=== PATIENT | male | born 1980 | race African-American/Black ===

== ENCOUNTER 2024-05-09 02:38 | Day surgery (SDC) | payer OTHER, SELFPAY ==
[2024-04-30 15:55] VITALS: BMI 29.5
--- NOTE | 2024-04-30 16:00 | PC.NURSE ---
Report to hospital entrance [address] right of the green pavilion by [facility] [address].located off [facility], at time _0630_ on date _[id number]_. Planned Procedure Time: _0830_.? Time changes happen often and if your time is changed the preop area will call you the afternoon before. - You and your visitor will be asked to self-screen and do not enter if you have any COVID symptoms. Please call surgeon if you need to reschedule. - A mask is optional within the hospital at this time. Patients may have clear liquids (water, carbonated beverages, clear teas, apple juice) until 3 hours prior to surgery with a maximum of 20 ounces. - No food from midnight until time of surgery and no smoking, or chewing Tobacco (or any form of nicotine). No chewing gum, candy or mints. Take only the following medications with a SIP of water on the morning of surgery: ___May use Albuterol and or Acetaminophen if needed. DO NOT STOP ANY OF YOUR OTHER PRESCRIPTION MEDICATIONS PRIOR TO SURGERY EXCEPT THE FOLLOWING Medications to discontinue per physician ___Hold Ibuprofen until after surgery.____ Date to take last nutt__[id number]___ Please no make-up, nail cymro, hairspray, perfume, deodorant, or body powder the day of surgery.? No jewelry (including any body piercings) or valuables the day of surgery, leave them at home.? Please take a shower or bath the night before, or the morning of, surgery with an antibacterial soap.? Wear comfortable, loose fitting clothing.? - Jewelry must be removed prior to entering the operating room.? Rings and piercings that are not removed may be cut off. - The hospital will not accept responsibility for valuables.? - Please leave all valuables, including medications, at home the day of surgery. If you are going home after surgery, a licensed rivet driver must drive you home.? - NO public transportation without another adult if you receive anesthesia. - We recommend that an adult stay with you for 24 hours following discharge. - We also recommend that you do not drive, make important decision, drink alcoholic beverages, or take any drugs that were not prescribed by your health care provider for at least 24 hours after your discharge time. Hold all vitamins and supplements for 3 days per anesthesiologist. Follow any additional instructions given to you from your surgeon. Telephone instructions given to ___Ryanne Powers__and asked if any additional questions and then verbalized understanding. Patient advised to call surgeon office or pre surgery nurse liaison [phone] if any additional questions
--- OUTSIDE RECORDS SUMMARY | 2024-05-09 02:58 | XMS_ITS | Clinical Summary ---
Author Organization [facility] [employer] Address [address] [place] [address] Care Team Providers Care Medical Equipment Technician Name Role Phone Unavailable Primary Care Provider Unavailabl e Source Comments [facility],non-owned Affiliates and Associated Physician Practices is amultiple site organization consisting of ambulatory clinics and hospital sitesin [place], [place], [place] and [place]. This disclosure is being madepursuant to the Care Everywhere program and may not contain all information available regarding this patient. Last updated 17.[facility] [employer] Allergies No known active allergies Medications * Be aware that medications may not be up to date on this document. Alwaysverify current medications with the patient. Medication Sig Dispensed Refills Start Date End Date Status albuterol HFA (VENTOLIN HFA) 8 gram inhaler Inhale 2 (two) puffs by mouth every 6 hours as needed Active tolnaftate (Tinactin) 1 % cream Apply to affected area 2 times daily as needed Active predniSONE (DELTASONE) 5 MG tablet Take 1 (one) tablet by mouth once daily 15 tablet 08/09/2021 Active Additional Information Patient not taking.Reported on 05/11/2022 hydroxychloroquine (PLAQUENIL) 200 MG tablet Take 1 (one) tablet by mouth 2 times daily 60 tablet 3 08/09/2021 Active Additional Information Patient not taking.Reported on 05/11/2022 Active Problems Problem Noted Date Diagnosed Date Post-inflammatory hyperpigmentation 07/08/2021 Actinic skin damage 07/08/2021 Family History Medical History Relation Name Comments Cancer Mother Hypertension Sister Relation Name Status Comments Mother Sister Social History Tobacco Use Types Packs/Day Years Used Date Smoking Tobacco: Never Smokeless Tobacco: Never Alcohol Use Standard Drinks/Week Comments Never 0 (1 standard drink = 0.6 oz pur e alcohol) PHQ-2 Answer Date Recorded PHQ2 TOTAL SCORE 2 07/14/2022 Sex and Gender Information Value Date Recorded Sex Assigned at Not on file Gender Identity Not on file Sexual Orientation Not on file Last Filed Vital Signs Vital Sign Reading Time Taken Comments Blood Pressure 122/74 07/14/2022 12:24 PM CDT Pulse 53 07/14/2022 12:24 PM CDT Temperature 36.5 C (97.7 F) 07/14/2022 12:24 PM CDT Respiratory Rate - - Oxygen Saturation 99% 07/14/2022 12:24 PM CDT Inhaled Oxygen Concentration - - Weight 101.2 kg (223 lb) 02/28/2021 10:42 AM [employer] Height 180.3 cm (5' 11 ) 02/28/2021 10:42 AM [employer] Body Mass Index 31.1 02/28/2021 10:42 AM [employer] Plan of Treatment Health Maintenance Due Date Last Done Comments LIPID TESTING 1982 DTAP/TDAP/TD VACCINES (1 - Tdap) 2001 HEPATITIS B VACCINE (1 of 3 - 19+ 3-dose series) 2001 COVID-19 VACCINE ( - 2023-2 5 season) 2023 INFLUENZA VACCINE (#1) 2023 DEPRESSION SCREENING 03/26/2024 05/11/2022 ZOSTER VACCINE (1 of 2) 2032 HEPATITIS C SCREENING Completed 02/28/2021 HIV SCREENING Completed 02/28/2021 HIB VACCINE Aged Out No longer eligi ble based on patient's age to complete this topic HPV VACCINE Aged Out No longer eligi ble based on patient's age to complete this topic MENINGOCOCCAL (Group B) VACCINE Aged Out No longer eligible based on patient's age to complete this topic MENINGOCOCCAL VACCINE Aged Out No elia julio eligible based on patient's age to complete this topic PNEUMOCOCCAL VACCINE Aged Out No long er eligible based on patient's age to complete this topic Procedures Procedure Name Priority Date/Time Associated Diagnosis Comments HEPATITIS C ANTIBODY Routine 02/28/2021 12:18 PM [employer] Arthralgia, unspecified joint High risk medication use Long-term use of immunosuppressant medication Encounter for therapeutic drug level monitoring Vasculitis (HCC) HIV-1 HIV-2 ANTIBODY + HIV P24 AG PANEL Routine 02/28/2021 12:18 PM [employer] Arthralgia, unspecified joint High risk medications (not anticoagulants) long-term use Long-term use of immunosuppressant medication Encounter for therapeutic drug level monitoring Vasculitis (HCC) from Last 3 Months or Most Recently Relevant to Health Maintenance Results * HIV-1 HIV-2 ANTIBODY + HIV P24 AG PANEL (02/28/2021 12:18 PM [employer]) HIV Antigen/Antibod y 1 & 2 Non-reacti ve Non-react jim 02/28/2021 2:48 PM [employer] [facility] Comment:No Laboratory eviden ce of HIV infection. Blood BLOOD SPECIMEN / Unknown Lab Venipuncture / Unknown 02/28/2021 12:18 PM [employer] 02/28/2021 12:54 PM [employer] Irina Rodriguez MD LAB - CHEMISTRY ORDERABLES Performing Organization Address City/[facility]/ZIP Co de Phone Number [address] [address], [place] [phone] * (ABNORMAL) HEPATITIS C ANTIBODY (02/28/2021 12:18 PM [employer]) Hepatitis C Antibody Reactive( A) Non-react jim 02/28/2021 2:52 PM [employer] [facility] Comment:Hepatitis C Antibody screen is consistent with past or current infection with Hepatitis C Virus. Nucleic Acid Test ([facility]ACE) for Hepatitis C Viral RNA should be performed for initial HCV workup, and for differentiating active/chronic infection from resolved infection. Blood BLOOD SPECIMEN / Unknown Lab Venipuncture / Unknown 02/28/2021 12:18 PM [employer] 02/28/2021 12:54 PM [employer] Irina Rodriguez MD LAB - CHEMISTRY ORDERABLES [address] [address], [place] [phone] from Last 3 Months or Most Recently Relevant to Health Maintenance
--- OUTSIDE RECORDS SUMMARY | 2024-05-09 02:58 | XMS_ITS | Patient Health Summary ---
Author Organization [facility] Address [address] [place] [address] Care Team Providers Care Celebrity Manager Name Role Phone Unavailable Primary Care Provider Unavailabl e Note from [facility],non-owned Affiliates and Associated Physician Practices is amultiple site organization consisting of ambulatory clinics and hospital sitesin [place], [place], [place] and [place]. This disclosure is being madepursuant to the Care Everywhere program and may not contain all information available regarding this patient. Last updated 17.[facility] Allergies No known active allergies Medications * Be aware that medications may not be up to date on this document. Alwaysverify current medications with the patient. * albuterol HFA (VENTOLIN HFA) 8 gram inhaler Inhale 2 (two) puffs by mouth every 6 hours as needed * tolnaftate (Tinactin) 1 % cream Apply to affected area 2 times daily as needed * predniSONE (DELTASONE) 5 MG tablet(Started 08/09/2021) Take 1 (one) tablet by mouth once daily * hydroxychloroquine (PLAQUENIL) 200 MG tablet(Started 08/09/2021) Take 1 (one) tablet by mouth 2 times daily 3 refills by 08/09/2022 Active Problems Problem Noted Date Diagnosed Date Post-inflammatory hyperpigmentation 07/08/2021 Actinic skin damage 07/08/2021 Social History Tobacco Use Types Packs/Day Years [...] 101.2 kg (223 lb) 02/28/2021 10:42 AM 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 CONDITIONING 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 Height 180.3 cm (5' 11 ) 02/28/2021 10:42 AM STEAM CONDITIONING OPERATOR Body Mass Index 31.1 02/28/2021 10:42 AM STEAM CONDITIONING OPERATOR Procedures * AMAURI BLOOD SINGLE PATTERN(Performed 02/28/2021) Performed for Arthralgia, unspecified joint, High risk medication use, Long-term use of immunosuppressant medication, Encounter for therapeutic drug level monitoring, Vasculitis (HCC) * AMAURI HEP-2 IGG BY IFA(Performed 02/28/2021) Performed for Arthralgia, unspecified joint, High risk medication use, Long-term use of immunosuppressant medication, Encounter for therapeutic drug level monitoring, Vasculitis (HCC) * COMPLEMENT ACTIVITY TOTAL (CH50)(Performed 02/28/2021) Performed for Arthralgia, unspecified joint, High risk medications (not anticoagulants) long-term use, Long-term use of immunosuppressant medication, Encounter for therapeutic drug level monitoring, Vasculitis (HCC) * URINALYSIS REFLEX TO MICROSCOPIC NO CULTURE(Performed 02/28/2021) Performed for Arthralgia, unspecified joint, High risk medication use, Long-term use of immunosuppressant medication, Encounter for therapeutic drug level monitoring, Vasculitis (HCC) * HEPATITIS C ANTIBODY(Performed 02/28/2021) Performed for Arthralgia, unspecified joint, High risk medication use, Long-term use of immunosuppressant medication, Encounter for therapeutic drug level monitoring, Vasculitis (HCC) * HEPATITIS B SURFACE ANTIBODY(Performed 02/28/2021) Performed for Arthralgia, unspecified joint, High risk medication use, Long-term use of immunosuppressant medication, Encounter for therapeutic drug level monitoring, Vasculitis (HCC) * HEPATITIS B CORE ANTIBODY TOTAL(Performed 02/28/2021) Performed for Arthralgia, unspecified joint, High risk medication use, Long-term use of immunosuppressant medication, Encounter for therapeutic drug level monitoring, Vasculitis (HCC) * LDH BLOOD(Performed 02/28/2021) Performed for Arthralgia, unspecified joint, High risk medication use, Long-term use of immunosuppressant medication, Encounter for therapeutic drug level monitoring, Vasculitis (HCC) * ALDOLASE(Performed 02/28/2021) Performed for Arthralgia, unspecified joint, High risk medication use, Long-term use of immunosuppressant medication, Encounter for therapeutic drug level monitoring, Vasculitis (HCC) * CK BLOOD(Performed 02/28/2021) Performed for Arthralgia, unspecified joint, High risk medication use, Long-term use of immunosuppressant medication, Encounter for therapeutic drug level monitoring, Vasculitis (HCC) * ERYTHROCYTE SEDIMENTATION RATE(Performed 02/28/2021) Performed for Arthralgia, unspecified joint, High risk medication use, Long-term use of immunosuppressant medication, Encounter for therapeutic drug level monitoring, Vasculitis (HCC) * C-REACTIVE PROTEIN(Performed 02/28/2021) Performed for Arthralgia, unspecified joint, High risk medication use, Long-term use of immunosuppressant medication, Encounter for therapeutic drug level monitoring, Vasculitis (HCC) * COMPREHENSIVE METABOLIC PANEL(Performed 02/28/2021) Performed for Arthralgia, unspecified joint, High risk medication use, Long-term use of immunosuppressant medication, Encounter for therapeutic drug level monitoring, Vasculitis (HCC) * CBC W AUTO DIFFERENTIAL(Performed 02/28/2021) Performed for Arthralgia, unspecified joint, High risk medication use, Long-term use of immunosuppressant medication, Encounter for therapeutic drug level monitoring, Vasculitis (HCC) * HISTONE ANTIBODY(Performed 02/28/2021) Performed for Arthralgia, unspecified joint, High risk medication use, Long-term use of immunosuppressant medication, Encounter for therapeutic drug level monitoring, Vasculitis (HCC) * RIOS (SM) ANTIBODY ALISHA(Performed 02/28/2021) Performed for Arthralgia, unspecified joint, High risk medication use, Long-term use of immunosuppressant medication, Encounter for therapeutic drug level monitoring, Vasculitis (HCC) * SS-B (SJOGREN'S) ANTIBODY(Performed 02/28/2021) Performed for Arthralgia, unspecified joint, High risk medication use, Long-term use of immunosuppressant medication, Encounter for therapeutic drug level monitoring, Vasculitis (HCC) * RIOS/TECHNOLOGY CONSULTANT (ALISHA) ANTIBODY IGG(Performed 02/28/2021) Performed for Arthralgia, unspecified joint, High risk medication use, Long-term use of immunosuppressant medication, Encounter for therapeutic drug level monitoring, Vasculitis (HCC) * IGM BLOOD(Performed 02/28/2021) Performed for Arthralgia, unspecified joint, High risk medication use, Long-term use of immunosuppressant medication, Encounter for therapeutic drug level monitoring, Vasculitis (HCC) * IGG BLOOD(Performed 02/28/2021) Performed for Arthralgia, unspecified joint, High risk medication use, Long-term use of immunosuppressant medication, Encounter for therapeutic drug level monitoring, Vasculitis (HCC) * IGA BLOOD(Performed 02/28/2021) Performed for Arthralgia, unspecified joint, High risk medication use, Long-term use of immunosuppressant medication, Encounter for therapeutic drug level monitoring, Vasculitis (HCC) * DNA ANTIBODY DS CRITHIDIA TITER(Performed 02/28/2021) Performed for Arthralgia, unspecified joint, High risk medication use, Long-term use of immunosuppressant medication, Encounter for therapeutic drug level monitoring, Vasculitis ([facility]) * DNA ANTIBODY DOUBLE STRANDED(Performed 02/28/2021) Performed for Arthralgia, unspecified joint, High risk medication use, Long-term use of immunosuppressant medication, Encounter for therapeutic drug level monitoring, Vasculitis ([facility]) * CHROMATIN ANTIBODY(Performed 02/28/2021) Performed for Arthralgia, unspecified joint, High risk medication use, Long-term use of immunosuppressant medication, Encounter for therapeutic drug level monitoring, Vasculitis (HCC) * CARDIOLIPIN ANTIBODY IGG(Performed 02/28/2021) Performed for Arthralgia, unspecified joint, High risk medication use, Long-term use of immunosuppressant medication, Encounter for therapeutic drug level monitoring, Vasculitis ([facility]) * CARDIOLIPIN ANTIBODY IGA(Performed 02/28/2021) Performed for Arthralgia, unspecified joint, High risk medication use, Long-term use of immunosuppressant medication, Encounter for therapeutic drug level monitoring, Vasculitis ([facility]) * BETA-2 GLYCOPROTEIN 1 ANTIBODY IGA(Performed 02/28/2021) Performed for Arthralgia, unspecified joint, High risk medication use, Long-term use of immunosuppressant medication, Encounter for therapeutic drug level monitoring, Vasculitis ([facility]) * AMAURI BLOOD SCREEN W/REFLEX TITER(Performed 02/28/2021) Performed for Arthralgia, unspecified joint, High risk medication use, Long-term use of immunosuppressant medication, Encounter for therapeutic drug level monitoring, Vasculitis (HCC) * COMPLEMENT C4(Performed 02/28/2021) Performed for Arthralgia, unspecified joint, High risk medication use, Long-term use of immunosuppressant medication, Encounter for therapeutic drug level monitoring, Vasculitis (HCC) * COMPLEMENT C3(Performed 02/28/2021) Performed for Arthralgia, unspecified joint, High risk medication use, Long-term use of immunosuppressant medication, Encounter for therapeutic drug level monitoring, Vasculitis (HCC) * SS-A (SJOGREN'S) 52+60 ANTIBODIES(Performed 02/28/2021) Performed for Arthralgia, unspecified joint, High risk medications (not anticoagulants) long-term use, Long-term use of immunosuppressant medication, Encounter for therapeutic drug level monitoring, Vasculitis (HCC) * HIV-1 HIV-2 ANTIBODY + HIV P24 AG PANEL(Performed 02/28/2021) Performed for Arthralgia, unspecified joint, High risk medications (not anticoagulants) long-term use, Long-term use of immunosuppressant medication, Encounter for therapeutic drug level monitoring, Vasculitis (HCC) * BETA-2 GLYCOPROTEIN 1 ANTIBODY IGG/IGM PANEL(Performed 02/28/2021) Performed for Arthralgia, unspecified joint, High risk medications (not anticoagulants) long-term use, Long-term use of immunosuppressant medication, Encounter for therapeutic drug level monitoring, Vasculitis (HCC) Results * (ABNORMAL) AMAURI BLOOD SINGLE PATTERN (02/28/2021 12:18 PM STEAM CONDITIONING OPERATOR) AMAURI Pattern Speckled( A) 03/05/2021 10:00 AM STEAM CONDITIONING OPERATOR [employer] ([facility]) AMAURI Titer 1:160(A) 03/05/2021 10:00 AM STEAM CONDITIONING OPERATOR [employer] [facility]) Comment: Performed By: [employer] [address] [place] [id number] Metal Mold Dresser: Neris Crespo MD Blood BLOOD SPECIMEN / Unknown Lab Venipuncture / Unknown 02/28/2021 12:18 PM STEAM CONDITIONING OPERATOR 02/28/2021 12:54 PM STEAM CONDITIONING OPERATOR Irina Rodriguez MD LAB - CHEMISTRY ORDERABLES Performing Organization Address [facility] de Phone Number [facility] ([facility]) [address] * COMPLEMENT ACTIVITY TOTAL (CH50) (02/28/2021 12:18 PM STEAM CONDITIONING OPERATOR) [facility] Complement Activity Total CH50 57.8 38.7 - 89.9 U/mL 2021 12:48 AM STEAM CONDITIONING OPERATOR [facility]) Comment: REFERENCE INTERVAL: Complement Activity Total, (CH50) 38.6 U/mL or less ..........Low 38.7-89.9 U/mL .............Normal 90.0 U/mL or greater .......High Performed By: [employer] [address] [place] [address] Metal Mold Dresser: Neris Crespo MD Blood BLOOD SPECIMEN / Unknown Lab Venipuncture / Unknown 02/28/2021 12:18 PM STEAM CONDITIONING OPERATOR 02/28/2021 12:54 PM STEAM CONDITIONING OPERATOR Irina Rodriguez MD LAB - CHEMISTRY ORDERABLES Performing Organization Address [facility] de Phone Number [facility] ([facility]) [address] * (ABNORMAL) AMAURI HEP-2 IGG BY IFA (02/28/2021 12:18 PM STEAM CONDITIONING OPERATOR) [facility] AMAURI HEp-2 IgG Detected (H) <1:80 03/05/2021 10:00 AM STEAM CONDITIONING OPERATOR [facility] [employer] ([facility]) AMAURI Interpretive Comment See Note 03/05/2021 10:00 AM STEAM CONDITIONING OPERATOR [facility] [employer] ([facility]) Comment: Speckled Pattern Clinical associations: SLE, SSc, SjS, DM, PM, MCTD, UCTD. May also be found in healthy individuals Main autoantibodies: Anti-SSA-52 (Ro52), anti-SSA-60 (Ro60), anti-SS-B/LA, anti-Ned-1 (anti-Scl-70), Rios, anti-U1-TECHNOLOGY CONSULTANT, anti-U2-TECHNOLOGY CONSULTANT, anti-Mi-2, anti-p155/140 (TIF1g), anti-Ku, anti-RNA polymerase, anti-DFS70/LEDGF-P75 List of Abbreviations Antisynthetase syndrome (ARS), chronic active hepatitis (CAH), inflammatory myopathies (IM) [dermatomyositis (DM), polymyositis (PM), necrotizing autoimmune myopathy (NAM)], interstitial lung disease (ILD), juvenile idiopathic arthritis (SILVIA), mixed connective tissue disease (MCTD), primary biliary cholangitis (PBC), rheumatoid arthritis (RA), systemic autoimmune rheumatic diseases (SARD), Sjogren syndrome (SjS), systemic lupus erythematosus (SLE), systemic sclerosis (SSc), undifferentiated connective tissue disease (UCTD). INTERPRETIVE INFORMATION: AMAURI Interpretive Comment Presence of antinuclear antibodies (AMAURI) is a hallmark feature of systemic autoimmune rheumatic diseases (SARD). However, AMAURI lacks diagnostic specificity and is associated with a variety of diseases (cancers, autoimmune, infectious, and inflammatory conditions) and may also occur in healthy individuals in varying prevalence. The lack of diagnostic specificity requires confirmation of positive AMAURI by more specific serologic tests. AMAURI (nuclear reactivity) positive patterns reported include centromere, homogeneous, nuclear dots, nucleolar, or speckled. AMAURI (cytoplasmic reactivity) positive patterns reported include reticular/AMA, discrete/GW body-like, polar/golgi-like, cytoplasmic speckled or rods and rings. All positive patterns are reported to endpoint titers (1:2560). Reported patterns may help guide differential diagnosis, although they may not be specific for individual antibodies or diseases. Mitotic staining patterns not reported. Negative results do not necessarily rule out SARD. Performed By: [facility] [address] [place] [address] Metal Mold Dresser: Neris Crespo MD Blood BLOOD SPECIMEN / Unknown Lab Venipuncture / Unknown 02/28/2021 12:18 PM STEAM CONDITIONING OPERATOR 02/28/2021 12:54 PM STEAM CONDITIONING OPERATOR Irina Rodriguez MD LAB - SEROLOGY ORDERABLES [employer] ([facility]) [address] [place] [address], [facility] * SS-A (SJOGREN'S) 52+60 ANTIBODIES (02/28/2021 12:18 PM STEAM CONDITIONING OPERATOR) SS-A 52 Antibody 12 0 - 40 AU/mL 2021 5:05 AM STEAM CONDITIONING OPERATOR [email or web address] ([facility]) Comment: INTERPRETIVE INFORMATION: SSA-52 (Ro52) (ALISHA) Antibody, IgG 29 AU/mL or Less ............. Negative 30 - 40 AU/mL ................ Equivocal 41 AU/mL or Greater .......... Positive SSA-52 (Ro52) and/or SSA-60 (Ro60) antibodies are associated with a diagnosis of Sjogren syndrome, systemic lupus erythematosus (SLE), and systemic sclerosis. SSA-52 antibody overlaps significantly with the major SSc-related antibodies. SSA-52 (Ro52) antibody occurs frequently in patients with inflammatory myopathies, often in the presence of interstitial lung disease. SS-A 60 Antibody 8 0 - 40 AU/mL 2021 5:05 AM STEAM CONDITIONING OPERATOR [facility] [employer] ([facility]) Comment: REFERENCE INTERVAL: SSA-60 (Ro60) (ALISHA) Antibody, IgG 29 AU/mL or Less ............. Negative 30 - 40 AU/mL ................ Equivocal 41 AU/mL or Greater .......... Positive Performed By: [facility] [address] [place] [address] Metal Mold Dresser: Neris Crespo MD Blood BLOOD SPECIMEN / Unknown Lab Venipuncture / Unknown 02/28/2021 12:18 PM STEAM CONDITIONING OPERATOR 02/28/2021 12:54 PM STEAM CONDITIONING OPERATOR Irina Rodriguez MD LAB - CHEMISTRY ORDERABLES [facility] [employer] [facility]) [address] * RIOS/TECHNOLOGY CONSULTANT (ALISHA) ANTIBODY IGG (02/28/2021 12:18 PM STEAM CONDITIONING OPERATOR) Rios/TECHNOLOGY CONSULTANT (ALISHA) Antibody IgG 6 0 - 19 Units 2021 12:05 PM STEAM CONDITIONING OPERATOR [email or web address] ([facility]) Comment: INTERPRETIVE INFORMATION: Rios/TECHNOLOGY CONSULTANT (ALISHA) Antibody, IgG 19 Units or Less ............. Negative 20 to 39 Units ............... Weak Positive 40 to 80 Units ............... Moderate Positive 81 Units or greater .......... Strong Positive Rios/TECHNOLOGY CONSULTANT antibodies are frequently seen in patients with mixed connective tissue disease (MCTD) and are also associated with other systemic autoimmune rheumatic diseases (SARDs) such as systemic lupus erythematosus (SLE), systemic sclerosis, and myositis. Antibodies targeting the Rios/TECHNOLOGY CONSULTANT antigenic complex also recognize Rios antigens, therefore, the Rios antibody response must be considered when interpreting these results. Performed By: [facility] [address] [place] [address] Metal Mold Dresser: Neris Crespo MD Blood BLOOD SPECIMEN / Unknown Lab Venipuncture / Unknown 02/28/2021 12:18 PM STEAM CONDITIONING OPERATOR 02/28/2021 12:54 PM STEAM CONDITIONING OPERATOR Irina Rodriguez MD LAB - CHEMISTRY ORDERABLES [email or web address] [facility]) [address] [place] [address], [facility] * CHROMATIN ANTIBODY (02/28/2021 12:18 PM STEAM CONDITIONING OPERATOR) Pathologist [facility] Chromatin Antibody 8 0 - 19 Units 2021 2:14 PM STEAM CONDITIONING OPERATOR [facility] [employer] ([facility]) Comment: INTERPRETIVE INFORMATION: Chromatin Antibody, IgG 19 Units or less: Negative 20 - 60 Units: Moderate Positive 61 Units or greater: Strong Positive The presence of anti-chromatin antibodies may be useful in the diagnosis of systemic lupus erythematosus (SLE) or drug-induced lupus (DIL) and have been reported to be predictive of lupus nephritis, especially when antibody levels are high. Performed By: [employer] [address] [place] [address] Metal Mold Dresser: Neris Crespo MD Blood BLOOD SPECIMEN / Unknown Lab Venipuncture / Unknown 02/28/2021 12:18 PM STEAM CONDITIONING OPERATOR 02/28/2021 12:54 PM STEAM CONDITIONING OPERATOR Irina Rodriguez MD LAB - SEROLOGY ORDERABLES [facility] [employer] [facility]) [address] [place] [address], [facility] * HIV-1 HIV-2 ANTIBODY + HIV P24 AG PANEL (02/28/2021 12:18 PM STEAM CONDITIONING OPERATOR) HIV Antigen/Antibod y 1 & 2 Non-reacti ve Non-react jim 02/28/2021 2:48 PM STEAM CONDITIONING OPERATOR [facility] Comment:No Laboratory eviden ce of HIV infection. Blood BLOOD SPECIMEN / Unknown Lab Venipuncture / Unknown 02/28/2021 12:18 PM STEAM CONDITIONING OPERATOR 02/28/2021 12:54 PM STEAM CONDITIONING OPERATOR Irina Rodriguez MD LAB - CHEMISTRY ORDERABLES Performing Organization Address City/[facility]/ZIP Co de Phone Number [address] [address], [facility] [phone] * (ABNORMAL) DNA ANTIBODY DS CRITHIDIA TITER (02/28/2021 12:18 PM STEAM CONDITIONING OPERATOR) dsDNA Antibody IgG 1:40(H) <1:10 2020 5:14 AM STEAM CONDITIONING OPERATOR [facility] [employer] ([facility]) Comment: INTERPRETIVE INFORMATION: Double-Stranded DNA (dsDNA) Antibody, IgG by IFA (using Crithidia luciliae) Positivity for anti-double stranded DNA (anti-dsDNA) IgG antibody is a diagnostic criterion of systemic lupus erythematosus (SLE). The presence of the anti-dsDNA IgG antibody is identified by IFA titer (Crithidia luciliae indirect fluorescent test [MELODIE]). MELODIE is highly specific for SLE with a sensitivity of 50-60 percent. Some patients with early or inactive SLE may be positive for anti-dsDNA IgG by ZULLY but negative by MELODIE. If the MELODIE result is negative but the patient has a positive ZULLY and clinical suspicion remains, consider antinuclear antibody (AMAURI) testing by IFA. Additional information and recommendations for testing may be found at [email or web address]. Performed By: [facility] [address] [place] [address] Metal Mold Dresser: Neris Crespo MD Blood BLOOD SPECIMEN / Unknown Lab Venipuncture / Unknown 02/28/2021 12:18 PM STEAM CONDITIONING OPERATOR 02/28/2021 12:54 PM STEAM CONDITIONING OPERATOR Irina Rodriguez MD LAB - SEROLOGY ORDERABLES Performing Organization Address [facility] de Phone Number [facility] [employer] [facility]) [address] [place] [address] * CARDIOLIPIN ANTIBODY IGA (02/28/2021 12:18 PM STEAM CONDITIONING OPERATOR) Cardiolipin Antibody IgA <10 <=11 APL 2021 12:07 AM STEAM CONDITIONING OPERATOR [facility] [employer] ([facility]) Comment: INTERPRETIVE INFORMATION: Cardiolipin Antibodies, IgA <=11 APL: Negative 12-19 APL: Indeterminate 20-80 APL: Low to Moderately Positive 81 APL or above: High Positive Performed By: [employer] [address] [place] [address] Metal Mold Dresser: Neris Crespo MD Blood BLOOD SPECIMEN / Unknown Lab Venipuncture / Unknown 02/28/2021 12:18 PM STEAM CONDITIONING OPERATOR 02/28/2021 12:54 PM STEAM CONDITIONING OPERATOR Irina Rodriguez MD LAB - SEROLOGY ORDERABLES Performing Organization Address [facility] Phone Number [facility]) [address] [place] [address] * (ABNORMAL) CARDIOLIPIN ANTIBODY IGG (02/28/2021 12:18 PM STEAM CONDITIONING OPERATOR) Cardiolipin Antibody IgG 26(H) <=14 GPL 2021 5:29 PM STEAM CONDITIONING OPERATOR [email or web address] ([facility]) Comment: INTERPRETIVE INFORMATION: Anti-Cardiolipin IgG Ab <=14 GPL: Negative 15-19 GPL: Indeterminate 20-80 GPL: Low to Moderately Positive 81 GPL or above: High Positive The persistent presence of IgG and/or IgM cardiolipin (CL) antibodies in moderate or high levels (greater than 40 GPL and/or greater than 40 MPL units) is a laboratory criterion for the diagnosis of antiphospholipid syndrome (APS). Persistence is defined as moderate or high levels of IgG and/or IgM CL antibodies detected in two or more specimens drawn at least 12 weeks apart (J Throm Haemost. 2006;4:295-306). Lower positive levels of IgG and/or IgM CL antibodies (above cutoff but less than 40 GPL and/or less than 40 MPL units) may occur in patients with the clinical symptoms of APS; therefore, the actual significance of these levels is undefined. Results should not be used alone for diagnosis and must be interpreted in light of APS-specific clinical manifestations and/or other criteria phospholipid antibody tests. Performed By: [place] [address] Metal Mold Dresser: Neris Crespo MD Blood BLOOD SPECIMEN / Unknown Lab Venipuncture / Unknown 02/28/2021 12:18 PM STEAM CONDITIONING OPERATOR 02/28/2021 12:54 PM STEAM CONDITIONING OPERATOR Irina Rodriguez MD LAB - SEROLOGY ORDERABLES [facility] ([facility]) [address] [place] [address], [facility] * (ABNORMAL) URINALYSIS REFLEX TO MICROSCOPIC NO CULTURE (02/28/2021 12:18 PM STEAM CONDITIONING OPERATOR) Color UA Yellow Straw, Yellow 02/28/2021 1:06 PM [facility] Clarity UA Clear Clear 02/28/2021 1:06 PM [facility] Specific [place] UA 1.018 1.005 - 1.030 02/28/2021 1:06 PM [facility] pH UA 7.0 5.0 - 8.0 pH 02/28/2021 1:06 PM [facility] Protein UA Negative Negative 02/28/2021 1:06 PM [facility] Glucose UA Negative Negative 02/28/2021 1:06 PM [facility] Ketone UA Negative Negative 02/28/2021 1:06 PM [facility] Bilirubin UA Negative Negative 02/28/2021 1:06 PM [facility] Blood UA Negative Negative 02/28/2021 1:06 PM [facility] [facility] Nitrite UA Negative Negative 02/28/2021 1:06 PM [facility] Leukocyte Esterase Negative Negative 02/28/2021 1:06 PM [facility] Urobilinogen UA Negative Negative mg/dL 02/28/2021 1:06 PM [facility] RBC UA 0-2 None Seen, 0-2, 3-5 /HPF 02/28/2021 1:06 PM [facility] WBC UA 0-5 None Seen, 0-5 /HPF 02/28/2021 1:06 PM [facility] Squamous Epithelial Cells UA 0-2 None Seen, 0-2, 3-5 /HPF 02/28/2021 1:06 PM [facility] Renal Epithelial Cells UA 0-2(A) None Seen /HPF 02/28/2021 1:06 PM [facility] Mucus UA 1+ /LPF 02/28/2021 1:06 PM [facility] Urine URINE SPECIMEN OBTAINED BY CLEAN CATCH PROCEDURE / Unknown Collection / Unknown 02/28/2021 12:18 PM STEAM CONDITIONING OPERATOR 02/28/2021 1:06 PM STEAM CONDITIONING OPERATOR Narrative [facility] - 02/28/2021 1:06 PM STEAM CONDITIONING OPERATOR Irina Rodriguez MD LAB - URINALYSI S ORDERABLES Performing Organization Address City/State/[facility] Co de Phone Number [facility] [address] [place] [address], [facility] [phone] * RIOS (SM) ANTIBODY ALISHA (02/28/2021 12:18 PM STEAM CONDITIONING OPERATOR) Rios (ALISHA) Antibody 40 0 - 40 AU/mL 2021 5:05 AM STEAM CONDITIONING OPERATOR [employer] ([facility]) Comment: INTERPRETIVE INFORMATION: Rios (ALISHA) Antibody, IgG 29 AU/mL or Less ............. Negative 30 - 40 AU/mL ................ Equivocal 41 AU/mL or Greater .......... Positive Rios antibody is highly specific (greater than 90 percent) for systemic lupus erythematosus (SLE) but only occurs in 30-35 percent of SLE cases. The presence of antibodies to Rios has variable associations with SLE clinical manifestations. Performed By: [facility] [address] [place] [address] Metal Mold Dresser: Neris Crespo MD Blood BLOOD SPECIMEN / Unknown Lab Venipuncture / Unknown 02/28/2021 12:18 PM STEAM CONDITIONING OPERATOR 02/28/2021 12:54 PM STEAM CONDITIONING OPERATOR Irina Rodriguez MD LAB - CHEMISTRY ORDERABLES Performing Organization Address City/[facility]/ZIP Co de Phone Number [facility]) [address] [place], [place] [address] * C-REACTIVE PROTEIN (02/28/2021 12:18 PM STEAM CONDITIONING OPERATOR) Pathologist [facility] C-Reactive Protein <0.5 <=0.5 mg/dL 02/28/2021 2:29 PM STEAM CONDITIONING OPERATOR [facility] Blood BLOOD SPECIMEN / Unknown Lab Venipuncture / Unknown 02/28/2021 12:18 PM STEAM CONDITIONING OPERATOR 02/28/2021 12:54 PM STEAM CONDITIONING OPERATOR Irina Rodriguez MD LAB - CHEMISTRY ORDERABLES Performing Organization Address City/[facility] Co de Phone Number [place] [phone] [place] [phone], [facility] [phone] * (ABNORMAL) AMAURI BLOOD SCREEN W/REFLEX TITER (02/28/2021 12:18 PM STEAM CONDITIONING OPERATOR) Pathologist [facility] AMAURI IgG Detected (A) None Detected 03/04/2021 3:37 AM STEAM CONDITIONING OPERATOR [facility]) Comment: Antibodies to Anti-Nuclear Antibodies (AMAURI) detected. Additional testing to follow. INTERPRETIVE INFORMATION: Anti-Nuclear Antibodies (AMAURI), IgG by ZULLY Antinuclear Antibodies (AMAURI), IgG by ZULLY: AMAURI specimens are screened using enzyme-linked immunosorbent assay (ZULLY) methodology. All ZULLY results reported as Detected are further tested by indirect fluorescent assay (IFA) using HEp-2 substrate with an IgG-specific conjugate. The AMAURI ZULLY screen is designed to detect antibodies against dsDNA, histones, SS-A (Ro), SS-B (La), Rios, Rios/TECHNOLOGY CONSULTANT, Scl-70, Vanesa-1, centromeric proteins, other antigens extracted from the HEp-2 cell nucleus. AMAURI ZULLY assays have been reported to have lower sensitivities than AMAURI IFA for systemic autoimmune rheumatic diseases (SARD). Negative results do not necessarily rule out SARD. Performed By: [employer] [address] [place] [address] Metal Mold Dresser: Neris Crespo MD Blood BLOOD SPECIMEN / Unknown Lab Venipuncture / Unknown 02/28/2021 12:18 PM STEAM CONDITIONING OPERATOR 02/28/2021 12:54 PM STEAM CONDITIONING OPERATOR Irina Rodriguez MD LAB - CHEMISTRY ORDERABLES Performing Organization Address [facility] Co de Phone Number [facility] [employer] [facility]) [address] [place] [address] * BETA-2 GLYCOPROTEIN 1 ANTIBODY IGA (02/28/2021 12:18 PM STEAM CONDITIONING OPERATOR) [facility] Beta-2 Glycoprotein Antibody IgA <10 <=20 BRENDA 03/04/2021 3:49 AM STEAM CONDITIONING OPERATOR [email or web address] ([facility]) Comment: Performed By: [facility] [address] [place] [address] Metal Mold Dresser: Neris Crespo MD Blood BLOOD SPECIMEN / Unknown Lab Venipuncture / Unknown 02/28/2021 12:18 PM STEAM CONDITIONING OPERATOR 02/28/2021 12:54 PM STEAM CONDITIONING OPERATOR Irina Rodriguez MD LAB - SEROLOGY ORDERABLES Performing Organization Address [facility] de Phone Number [facility]) [address] [place] [address] * (ABNORMAL) HISTONE ANTIBODY (02/28/2021 12:18 PM STEAM CONDITIONING OPERATOR) Histone Antibody IgG 1.6(H) 0.0 - 0.9 Units 2021 7:38 AM STEAM CONDITIONING OPERATOR [employer] ([facility]) Comment: INTERPRETIVE INFORMATION: Histone Ab, IgG 0.9 Units or less ............ Negative 1.0 - 1.5 Units .............. Weak Positive 1.6 - 2.5 Units .............. Moderate Positive 2.6 Units or greater ......... Strong Positive Performed By: [facility] [address] [place] [address] Metal Mold Dresser: Neris Crespo MD Blood BLOOD SPECIMEN / Unknown Lab Venipuncture / Unknown 02/28/2021 12:18 PM STEAM CONDITIONING OPERATOR 02/28/2021 12:54 PM STEAM CONDITIONING OPERATOR Irina Rodriguez MD LAB - CHEMISTRY ORDERABLES [facility] [employer] [facility]) [address] [place] [address], [facility] * BETA-2 GLYCOPROTEIN 1 ANTIBODY IGG/IGM PANEL (02/28/2021 12:18 PM STEAM CONDITIONING OPERATOR) [facility] Beta-2 Glycoprotein Antibody IgG <10 <=20 SGU 2021 2:31 PM STEAM CONDITIONING OPERATOR [facility] [employer] ([facility]) Beta-2 Glycoprotein Antibody IgM <10 <=20 SMU 2021 2:31 PM STEAM CONDITIONING OPERATOR [facility] [employer] [facility]) Comment: INTERPRETIVE INFORMATION: [id number] I, IgG and IgM Antibody The persistent presence of IgG and/or IgM beta 2 glycoprotein I (B2GPI) antibodies is a laboratory criterion for the diagnosis of antiphospholipid syndrome (APS). Persistence is defined as moderate or high levels of IgG and/or IgM B2GPI antibodies detected in two or more specimens drawn at least 12 weeks apart (J Throm Haemost. 2006;4:295-306). B2GPI results greater than 20 SGU (IgG) and/or SMU (IgM) are considered positive based on the cutoff values established for this test. International reference materials and consensus units for anti-B2GPI antibodies have not been established (Clin Amie Acta. 2012;413(1-2):358-60; Arthritis Rheum. 2012;64(1):1-10.); results can be variable between different commercial immunoassays and cannot be compared. Strong clinical correlation is recommended for a diagnosis of APS. Low positive IgG and IgM B2GPI antibody levels should be interpreted in light of APS-specific clinical manifestations and/or other criteria phospholipid antibody tests. Performed By: [facility] [address] [place] [address] Metal Mold Dresser: Neris Crespo MD Blood BLOOD SPECIMEN / Unknown Lab Venipuncture / Unknown 02/28/2021 12:18 PM STEAM CONDITIONING OPERATOR 02/28/2021 12:54 PM STEAM CONDITIONING OPERATOR Irina Rodriguez MD LAB - CHEMISTRY ORDERABLES Performing Organization Address City/[facility]/ZIP Co de Phone Number [facility] [employer] [facility]) [address] [place] [address] * SS-B (SJOGREN'S) ANTIBODY (02/28/2021 12:18 PM STEAM CONDITIONING OPERATOR) SS-B Antibody 2 0 - 40 AU/mL 2021 6:12 AM STEAM CONDITIONING OPERATOR [email or web address] ([facility]) Comment: INTERPRETIVE INFORMATION: SSB (La) (ALISHA) Ab, IgG 29 AU/mL or Less ............. Negative 30 - 40 AU/mL ................ Equivocal 41 AU/mL or Greater .......... Positive SSB (La) antibody is seen in 50-60% of Sjogren syndrome cases and is specific if it is the only ALISHA antibody present. 15-25% of patients with systemic lupus erythematosus (SLE) and 5-10% of patients with progressive systemic sclerosis (PSS) also have this antibody. Performed By: [facility] [address] [place] [address] Metal Mold Dresser: Neris Crespo MD Blood BLOOD SPECIMEN / Unknown Lab Venipuncture / Unknown 02/28/2021 12:18 PM STEAM CONDITIONING OPERATOR 02/28/2021 12:54 PM STEAM CONDITIONING OPERATOR Irina Rodriguez MD LAB - CHEMISTRY ORDERABLES [facility] [employer] [facility]) [address] [place] [address] * DNA ANTIBODY DOUBLE STRANDED (02/28/2021 12:18 PM STEAM CONDITIONING OPERATOR) dsDNA Antibody 9 0 - 24 IU 2021 12:08 AM STEAM CONDITIONING OPERATOR [employer] ([facility]) Comment: INTERPRETIVE INFORMATION: Double-Stranded DNA (dsDNA) Ab IgG ZULLY 24 IU or less........Negative 25-30 IU.............Borderline Positive 30-60 IU.............Low Positive 60-200 IU............Positive 201 IU or greater....Strong Positive Positivity for anti-double stranded DNA (anti-dsDNA) IgG antibody is a diagnostic criterion of systemic lupus erythematosus (SLE). Specimens are initially screened by enzyme-linked immunosorbent assay (ZULLY). If ordered as reflex ([id number]), positive ZULLY results (>24 IU) will be reflexed to a highly specific IFA titer (Crithidia luciliae indirect fluorescent test [MELODIE]) for confirmation. Some patients with early or inactive SLE may be positive for anti-dsDNA IgG by ZULLY but negative by MELODIE. If the patient is negative by MLEODIE but positive by ZULLY and clinical suspicion remains, consider antinuclear antibody (AMAURI) testing by IFA. Additional information and recommendations for testing may be found at [email or web address]. Performed By: [facility] [address] [place] [address] Metal Mold Dresser: Neris Crespo MD Blood BLOOD SPECIMEN / Unknown Lab Venipuncture / Unknown 02/28/2021 12:18 PM STEAM CONDITIONING OPERATOR 02/28/2021 12:54 PM STEAM CONDITIONING OPERATOR Irina Rodriguez MD LAB - HEMATOLOG Y ORDERABLES [email or web address] [facility]) [address] [place] [address] * ALDOLASE (02/28/2021 12:18 PM STEAM CONDITIONING OPERATOR) [facility] Aldolase 6.9 1.5 - 8.1 U/L 03/02/2021 4:53 PM STEAM CONDITIONING OPERATOR [facility] [employer] ([facility]) Comment: REFERENCE INTERVAL: Aldolase Access complete set of age- and/or gender-specific reference intervals for this test in the [employer] Laboratory Test Directory ([employer]). Performed By: [facility] [address] [place] [address] Metal Mold Dresser: Neris Crespo MD Blood BLOOD SPECIMEN / Unknown Lab Venipuncture / Unknown 02/28/2021 12:18 PM STEAM CONDITIONING OPERATOR 02/28/2021 12:54 PM STEAM CONDITIONING OPERATOR Irina Rodriguez MD LAB - CHEMISTRY ORDERABLES Performing Organization Address [facility]/ZIP Co de Phone Number [facility] ([facility]) [address] [place], [place] [id number] [place] [address] * ERYTHROCYTE SEDIMENTATION RATE (02/28/2021 12:18 PM STEAM CONDITIONING OPERATOR) Erythrocyte Sedimentation Rate Westergren 11 0 - 15 MM/HR 02/28/2021 1:24 PM [facility] Blood BLOOD SPECIMEN / Unknown Lab Venipuncture / Unknown 02/28/2021 12:18 PM STEAM CONDITIONING OPERATOR 02/28/2021 12:55 PM STEAM CONDITIONING OPERATOR Irina Rodriguez MD LAB - HEMATOLOG Y ORDERABLES [facility] [address] [place] [address] [phone] * CBC WITH DIFFERENTIAL (02/28/2021 12:18 PM STEAM CONDITIONING OPERATOR) WBC 4.8 3.5 - 10.5 10 3/uL 02/28/2021 1:00 PM [facility] RBC 5.63 4.30 - 5.70 10 6/uL 02/28/2021 1:00 PM [facility] Hemoglobin 16.4 12.0 - 17.6 g/dL 02/28/2021 1:00 PM [facility] Hematocrit 49.7 35.2 - 51.7 % 02/28/2021 1:00 PM [facility] MCV 88.3 80.7 - 98.3 fL 02/28/2021 1:00 PM [facility] MCH 29.1 26.7 - 34.0 pg 02/28/2021 1:00 PM [facility] MCHC 33.0 30.8 - 35.9 g/dL 02/28/2021 1:00 PM [facility] Platelet Count 260 150 - 400 10 3/uL 02/28/2021 1:00 PM [facility] RDW-SD 43.1 36.0 - 50.0 fL 02/28/2021 1:00 PM [facility] RDW-CV 13.3 11.2 - 14.8 % 02/28/2021 1:00 PM [facility] MPV 10.7 9.4 - 12.9 fL 02/28/2021 1:00 PM [facility] nRBC Absolute 0.00 0 10 3/uL 02/28/2021 1:00 PM [facility] nRBC Auto 0.0 0 /100 WBC 02/28/2021 1:00 PM [facility] Neutrophils % 44.7 35.0 - 70.0 % 02/28/2021 1:00 PM [facility] Lymphocytes % 42.1 20.0 - 43.0 % 02/28/2021 1:00 PM [facility] Monocytes % 9.5 5.0 - 13.0 % 02/28/2021 1:00 PM [facility] Eosinophils % 2.9 0.0 - 6.0 % 02/28/2021 1:00 PM [facility] Basophil % 0.6 0.0 - 2.0 % 02/28/2021 1:00 PM [facility] Neutrophils Absolute 2.2 1.6 - 7.0 10 3/uL 02/28/2021 1:00 PM [facility] Lymphocyte Absolute 2.0 1.1 - 3.9 10 3/uL 02/28/2021 1:00 PM [facility] Monocytes Absolute 0.46 0.26 - 1.07 10 3/uL 02/28/2021 1:00 PM [facility] Eosinophils Absolute 0.14 0.00 - 0.47 10 3/uL 02/28/2021 1:00 PM [facility] Basophils Absolute 0.03 0.00 - 0.08 10 3/uL 02/28/2021 1:00 PM [facility] Immature Granulocytes % 0.2 0.0 - 1.0 % 02/28/2021 1:00 PM [facility] Immature Granulocytes Absolute 0.01 02/28/2021 1:00 PM [facility] Blood BLOOD SPECIMEN / Unknown Lab Venipuncture / Unknown 02/28/2021 12:18 PM STEAM CONDITIONING OPERATOR 02/28/2021 12:55 PM STEAM CONDITIONING OPERATOR Irina Rodriguez MD LAB - HEMATOLOG Y ORDERABLES [address] [address], [facility] [phone] * COMPLEMENT C4 (02/28/2021 12:18 PM STEAM CONDITIONING OPERATOR) Complement C4 24 15 - 57 mg/dL 02/28/2021 1:29 PM [facility] Blood BLOOD SPECIMEN / Unknown Lab Venipuncture / Unknown 02/28/2021 12:18 PM STEAM CONDITIONING OPERATOR 02/28/2021 1:04 PM STEAM CONDITIONING OPERATOR Irina Rodriguez MD LAB - SEROLOGY ORDERABLES [address] [address], [facility] [phone] * (ABNORMAL) COMPREHENSIVE METABOLIC PANEL (02/28/2021 12:18 PM STEAM CONDITIONING OPERATOR) BUN 8 7 - 26 mg/dL 02/28/2021 1:29 PM [facility] Creatinine 1.04 0.71 - 1.16 mg/dL 02/28/2021 1:29 PM [facility] Sodium 142 136 - 145 mmol/L 02/28/2021 1:29 PM [facility] Potassium 4.1 3.5 - 4.5 mmol/L 02/28/2021 1:29 PM [facility] Chloride 107 98 - 107 mmol/L 02/28/2021 1:29 PM [facility] CO2 25 22 - 29 mmol/L 02/28/2021 1:29 PM [facility] Glucose 82 70 - 115 mg/dL 02/28/2021 1:29 PM [facility] Calcium 9.7 8.4 - 10.2 mg/dL 02/28/2021 1:29 PM [facility] Protein Total 8.4(H) 6.0 - 8.3 g/dL 02/28/2021 1:29 PM [facility] Albumin 4.3 3.4 - 5.0 g/dL 02/28/2021 1:29 PM [facility] Bilirubin Total 0.6 0.2 - 1.2 mg/dL 02/28/2021 1:29 PM [facility] Alkaline Phosphatase 74 40 - 150 U/L 02/28/2021 1:29 PM [facility] ALT 44 5 - 55 U/L 02/28/2021 1:29 PM [facility] AST 25 5 - 34 U/L 02/28/2021 1:29 PM [facility] Anion Gap 14 8 - 18 02/28/2021 1:29 PM [facility] BUN/Creatinine Ratio 8 7 - 23 02/28/2021 1:29 PM [facility] Osmolality Calculated 291 270 - 300 mOsm/kg 02/28/2021 1:29 PM [facility] Albumin/Globulin Ratio 1.0(L) 1.1 - 2.3 02/28/2021 1:29 PM [facility] eGFR by CKD-EPI >90 >=90 mL/min/1.7 3 m2 02/28/2021 1:29 PM [facility] Blood BLOOD SPECIMEN / Unknown Lab Venipuncture / Unknown 02/28/2021 12:18 PM STEAM CONDITIONING OPERATOR 02/28/2021 1:04 PM [facility] Irina Rodriguez MD LAB - CHEMISTRY ORDERABLES [facility] [address] [place] [address], [facility] [phone] * LDH BLOOD (02/28/2021 12:18 PM [facility]) LDH Total 221 125 - 243 Units/L 02/28/2021 1:29 PM [facility] Blood BLOOD SPECIMEN / Unknown Lab Venipuncture / Unknown 02/28/2021 12:18 PM STEAM CONDITIONING OPERATOR 02/28/2021 1:04 PM STEAM CONDITIONING OPERATOR Irina Rodriguez MD LAB - CHEMISTRY ORDERABLES Performing Organization Address City/[facility]/ZIP Co de Phone Number [address] [address], [place] [phone] * HEPATITIS B SURFACE ANTIBODY (02/28/2021 12:18 PM STEAM CONDITIONING OPERATOR) Hepatitis B Virus Surface Antibody Non-react jim Non-react jim 02/28/2021 2:48 PM STEAM CONDITIONING OPERATOR [facility] Comment: < 8 mIU/mL Hepatitis B surface Antibody (HBsAb). Nonreactive for HBsAb - individual is considered not immune to Hepatitis B Virus infection. Hepatitis B Surface Antibody Quantitative 0.2 <8.0 mIU/mL 02/28/2021 2:48 PM STEAM CONDITIONING OPERATOR [facility] Comment: Hepatitis B Surface Antibody Numeric Result Interpretation: Nonreactive: <8.0 mIU/mL Indeterminate: 8.0 - 12.0 mIU/mL Reactive: >12.0 mIU/mL Blood BLOOD SPECIMEN / Unknown Lab Venipuncture / Unknown 02/28/2021 12:18 PM STEAM CONDITIONING OPERATOR 02/28/2021 12:54 PM STEAM CONDITIONING OPERATOR Irina Rodriguez MD LAB - CHEMISTRY ORDERABLES Performing Organization Address [facility] Co de Phone Number [address] [address], [place] [phone] * HEPATITIS B CORE ANTIBODY (02/28/2021 12:18 PM STEAM CONDITIONING OPERATOR) HBc Antibody Total Non-reacti ve Non-reacti ve 02/28/2021 2:48 PM STEAM CONDITIONING OPERATOR [facility] Blood BLOOD SPECIMEN / Unknown Lab Venipuncture / Unknown 02/28/2021 12:18 PM STEAM CONDITIONING OPERATOR 02/28/2021 12:54 PM STEAM CONDITIONING OPERATOR Irina Rodriguez MD LAB - CHEMISTRY ORDERABLES [address] [place] [address], [place] [phone] * (ABNORMAL) CK BLOOD (02/28/2021 12:18 PM STEAM CONDITIONING OPERATOR) CK Total 232(H) 30 - 200 U/L 02/28/2021 1:29 PM STEAM CONDITIONING OPERATOR [facility] Blood BLOOD SPECIMEN / Unknown Lab Venipuncture / Unknown 02/28/2021 12:18 PM STEAM CONDITIONING OPERATOR 02/28/2021 1:04 PM STEAM CONDITIONING OPERATOR Irina Rodriguez MD LAB - CHEMISTRY ORDERABLES [address] [address], [place] [phone] * IGM BLOOD (02/28/2021 12:18 PM STEAM CONDITIONING OPERATOR) Pathologist [facility] IgM 98 37 - 286 mg/dL 02/28/2021 2:29 PM STEAM CONDITIONING OPERATOR [facility] Blood BLOOD SPECIMEN / Unknown Lab Venipuncture / Unknown 02/28/2021 12:18 PM STEAM CONDITIONING OPERATOR 02/28/2021 12:54 PM STEAM CONDITIONING OPERATOR Irina Rodriguez MD LAB - CHEMISTRY ORDERABLES [address] [address], [place] [phone] * (ABNORMAL) IGG BLOOD (02/28/2021 12:18 PM STEAM CONDITIONING OPERATOR) IgG 1,633(H) 767-1,590 mg/dL 02/28/2021 2:29 PM STEAM CONDITIONING OPERATOR [facility] Blood BLOOD SPECIMEN / Unknown Lab Venipuncture / Unknown 02/28/2021 12:18 PM STEAM CONDITIONING OPERATOR 02/28/2021 12:54 PM STEAM CONDITIONING OPERATOR Irina Rodriguez MD LAB - CHEMISTRY ORDERABLES [address] [address], [place] [phone] * IGA BLOOD (02/28/2021 12:18 PM STEAM CONDITIONING OPERATOR) IgA 191 61 - 356 mg/dL 02/28/2021 2:29 PM STEAM CONDITIONING OPERATOR [facility] Blood BLOOD SPECIMEN / Unknown Lab Venipuncture / Unknown 02/28/2021 12:18 PM STEAM CONDITIONING OPERATOR 02/28/2021 12:54 PM STEAM CONDITIONING OPERATOR Irina Rodriguez MD LAB - CHEMISTRY ORDERABLES [address] [address], [facility] [phone] * (ABNORMAL) HEPATITIS C ANTIBODY (02/28/2021 12:18 PM STEAM CONDITIONING OPERATOR) Hepatitis C Antibody Reactive( A) Non-react jim 02/28/2021 2:52 PM STEAM CONDITIONING OPERATOR [facility] Comment:Hepatitis C Antibody screen is consistent with past or current infection with Hepatitis C Virus. Nucleic Acid Test (GRACE) for Hepatitis C Viral RNA should be performed for initial HCV workup, and for differentiating active/chronic infection from resolved infection. Blood BLOOD SPECIMEN / Unknown Lab Venipuncture / Unknown 02/28/2021 12:18 PM STEAM CONDITIONING OPERATOR 02/28/2021 12:54 PM STEAM CONDITIONING OPERATOR Irina Rodriguez MD LAB - CHEMISTRY ORDERABLES Performing Organization Address City/[facility]/ZIP Co de Phone Number [address] [address], [facility] [phone] * COMPLEMENT C3 (02/28/2021 12:18 PM STEAM CONDITIONING OPERATOR) Complement C3 137 82 - 193 mg/dL 02/28/2021 1:29 PM STEAM CONDITIONING OPERATOR [facility] Blood BLOOD SPECIMEN / Unknown Lab Venipuncture / Unknown 02/28/2021 12:18 PM STEAM CONDITIONING OPERATOR 02/28/2021 1:04 PM STEAM CONDITIONING OPERATOR Irina Rodriguez MD LAB - CHEMISTRY ORDERABLES [facility] [address] [place] [address], [facility] [phone]
--- OUTSIDE RECORDS SUMMARY | 2024-05-09 02:58 | XMS_ITS | Clinical Summary ---
Author Organization [facility] Address [address] [place] [address] Care Team Providers Care Director Trading Name Role Phone Laura Alves MD, Replaced By [facility] Primary Care Provider Allergies No known active allergies Medications No known medications Active Problems No known active problems Encounters Date Type Department Care Team Description 04/07/2024 2:15 PM INSTALLATION TECH - 04/07/2024 11:59 PM INSTALLATION TECH Hospital Encounter [facility] [address] [place] [address] Jen Mcneil MD Discharge Disposition: Home or Self Care (Routine Discharge) 04/07/2024 Orders Only [facility] [address] [place] [address] Jen Mcneil MD 03/21/2024 7:30 AM INSTALLATION TECH - 03/21/2024 11:59 PM INSTALLATION TECH Hospital Encounter [facility] CT [address] [place] [address] Marcia Newman PA Discharge Disposition: Home or Self Care (Routine Discharge) 03/21/2024 Travel 03/18/2024 7:27 AM INSTALLATION TECH - 03/18/2024 11:59 PM INSTALLATION TECH Hospital Encounter [facility] CT [address] [place] [address] Marcia Newman PA Discharge Disposition: Home or Self Care (Routine Discharge) 03/18/2024 Travel from Last 3 Months Social History Tobacco Use Types Packs/Day Years Used Date Smoking Tobacco: Never Assessed Sex and Gender Information Value Date Recorded Sex Assigned at Not on file Legal Sex Male 4:42 PM CDT Gender Identity Not on file Sexual Orientation Not on file Last Filed Vital Signs Vital Sign Reading Time Taken Comments Blood Pressure 142/80 06/27/2022 1:55 PM CDT Pulse 62 06/27/2022 1:55 PM CDT Temperature - - Respiratory Rate 16 06/27/2022 1:55 PM CDT Oxygen Saturation 100% 06/27/2022 1:55 PM CDT Inhaled Oxygen Concentration - - Weight 88.5 kg (195 lb) 06/27/2022 1:55 PM CDT Height 180.3 cm (5' 11 ) 06/27/2022 1:55 PM CDT Body Mass Index 27.2 06/27/2022 1:55 PM CDT Plan of Treatment Health Maintenance Due Date Last Done Comments Annual Physical 1985 PHQ-2 (Physician [place]) 1994 DTaP, Tdap and Td Vaccines ( 1 - Tdap) 2001 Hepatitis B Vaccines (1 of 3 - 19+ 3-dose series) 2001 COVID-19 Vaccine (2023-2 5 season) 2023 Influenza Adult (#1) 2023 PHQ-2 (Physician [place]) 03/26/2024 Hepatitis C Completed 02/28/2021 HPV Vaccines Aged Out No longer eligi ble based on patient's age to complete this topic Meningococcal B Vaccine Aged Out No l onger eligible based on patient's age to complete this topic Meningococcal Vaccine Aged Out No elia julio eligible based on patient's age to complete this topic Pneumococcal Vaccine: Pediat rics (0 to 5 Years) and At-Risk Patients (6 to 64 Years) Aged Out No longer eligi ble based on patient's age to complete this topic RSV Immunizations Under 20 Months Aged Out No longer eligible based on patient's age to complete this topic Procedures Procedure Name Priority Date/Time Associated Diagnosis Comments CBC W/DIFF AUTOMATED Routine 04/07/2024 11:45 AM INSTALLATION TECH Adenopathy COMPREHENSIVE METABOLIC PANEL Routine 04/07/2024 11:45 AM INSTALLATION TECH Adenopathy LDH, LACTATE DEHYDROGENASE Routine 04/07/2024 11:45 AM INSTALLATION TECH Adenopathy HIV 1 ANTIGEN(S), WITH HIV-1 AND HIV-2 ANTIBODIES Routine 04/07/2024 11:45 AM INSTALLATION TECH Adenopathy SED RATE, ERYTHROCYTE (ESR) Routine 04/07/2024 11:45 AM INSTALLATION TECH Adenopathy URIC ACID BLOOD Routine 04/07/2024 11:45 AM INSTALLATION TECH Adenopathy CT CHEST+ABD+PEL W CON Routine 8:07 AM INSTALLATION TECH Lymphadenopathy CT SOFT TISSUE NECK W CON Routine 03/18/2024 7:41 AM INSTALLATION TECH Lymphadenopathy of head and neck from Last 3 Months Results * HIV 1 ANTIGEN(S), WITH HIV-1 AND HIV-2 ANTIBODIES (04/07/2024 11:45 AM INSTALLATION TECH) HIV 1/2 AB+ HIV1 P24 AG NON-REACTI VE NON-REACTI VE 04/07/2024 8:36 PM INSTALLATION TECH [facility] 04/07/2024 11:4 5 AM INSTALLATION TECH us Jen Mcneil MD LABORATORY Final Result [facility] [address] [place] [address], [place] [phone] * SED RATE, ERYTHROCYTE (ESR) (04/07/2024 11:45 AM INSTALLATION TECH) ESR 14 <15 MM/HR 04/07/2024 7:48 PM INSTALLATION TECH [facility] Comment:Testing performed on [employer] iSED. 04/07/2024 11:4 5 AM INSTALLATION TECH us Jen Mcneil MD LABORATORY Final Result [facility] [address] [place] [address], * (ABNORMAL) COMPREHENSIVE METABOLIC PANEL (04/07/2024 11:45 AM INSTALLATION TECH) [facility] GLUCOSE 73 70 - 99 MG/DL 04/07/2024 3:28 PM [facility] BUN 9 7 - 18 MG/DL 04/07/2024 3:28 PM [facility] CREATININE S/P/B 1.24(H) 0.50 - 1.20 MG/DL 04/07/2024 3:28 PM [facility] SODIUM S/P/B 141 136 - 145 MMOL/L 04/07/2024 3:28 PM [facility] POTASSIUM S/P/B 4.3 3.5 - 5.1 MMOL/L 04/07/2024 3:28 PM [facility] CHLORIDE S/P/B 105 100 - 108 MMOL/L 04/07/2024 3:28 PM [facility] CO2 29.8 21.0 - 32.0 MMOL/L 04/07/2024 3:28 PM [facility] CALCIUM S/P/B 7.9(L) 8.5 - 10.1 MG/DL 04/07/2024 3:28 PM [facility] BILIRUBIN TOTAL S/P/B 0.7 0.2 - 1.2 MG/DL 04/07/2024 3:28 PM [facility] Comment: THIS ASSAY IS NOT RECOMMENDED FOR PATIENTS UNDERGOING TREATMENT WITH ELTROMBOPAG DUE TO THE POTENTIAL FOR FALSELY ELEVATED RESULTS. TOTAL PROTEIN S/P/B 7.1 6.4 - 8.2 G/DL 04/07/2024 3:28 PM [facility] ALBUMIN S/P/B 3.8 3.4 - 5.0 G/DL 04/07/2024 3:28 PM INSTALLATION TECH [facility] AST 24 15 - 37 U/L 04/07/2024 3:28 PM [facility] ALT 27 16 - 60 U/L 04/07/2024 3:28 PM [facility] ALKALINE PHOSPHATASE S/P/B 75 50 - 136 U/L 04/07/2024 3:28 PM INSTALLATION TECH [facility] ANION GAP 6.2 5.0 - 15.0 MMOL/L 04/07/2024 3:28 PM INSTALLATION TECH [facility] BUN CREATININE RATIO 7.3 6 - 26 04/07/2024 3:28 PM [facility] A/G RATIO 1.2 1.0 - 2.5 RATIO 04/07/2024 3:28 PM [facility] GFR ESTIMATE 74(L) >90 ML/MIN/1.7 3 M2 04/07/2024 3:28 PM [facility] Comment: NOTE: eGFR is not calculated for patients <18 years of age. This is an estimated GFR calculation using the new CKD EPI creatinine equation without race and so does not require a correction factor for race. This estimated GFR should not be used for calculating drug doses. 04/07/2024 11:4 5 AM INSTALLATION TECH Jen Mcneil MD LABORATORY Final Result Performing Organization Address City/[facility]/ZIP Co de Phone Number [facility] [address] [place] [address] [place] [address], * LDH, LACTATE DEHYDROGENASE (04/07/2024 11:45 AM INSTALLATION TECH) LDH 213 87 - 241 UNITS/L 04/07/2024 8:39 PM INSTALLATION TECH [facility] 04/07/2024 11:4 5 AM INSTALLATION TECH Jen Mcneil MD LABORATORY Final Result [facility] [address] [place] [address], * (ABNORMAL) CBC W/DIFF AUTOMATED (04/07/2024 11:45 AM INSTALLATION TECH) [facility] Signature WBC 3.70(L) 4.50 - 11.00 x10'3/uL 04/07/2024 2:20 PM INSTALLATION TECH [facility] RBC 5.17 4.50 - 5.90 x10'6/uL 04/07/2024 2:20 PM [facility] HGB 14.9 14.0 - 18.0 G/DL 04/07/2024 2:20 PM [facility] HCT 44.7 43.0 - 54.0 % 04/07/2024 2:20 PM [facility] MCV 86.5 80.0 - 100.0 FL 04/07/2024 2:20 PM [facility] MCH 28.8 26.0 - 34.0 PG 04/07/2024 2:20 PM [facility] MCHC 33.3 31.0 - 37.0 G/DL 04/07/2024 2:20 PM [facility] RDW 13.3 11.6 - 14.8 % 04/07/2024 2:20 PM [facility] PLT 244 130 - 400 x10'3/uL 04/07/2024 2:20 PM [facility] MPV 10.4 7.0 - 12.0 FL 04/07/2024 2:20 PM [facility] CBC COMMENT AUTOMATED RBC MORPHOLOGY AND PLATELET EVALUATION NORMAL 04/07/2024 2:20 PM [facility] NEUTROPHILS % 43.4 40.0 - 74.0 % 04/07/2024 2:20 PM [facility] LYMPHOCYTES % 47.0(H) 14.0 - 46.0 % 04/07/2024 2:20 PM [facility] MONOCYTES % 7.0 4.0 - 13.0 % 04/07/2024 2:20 PM INSTALLATION TECH [facility] EOSINOPHILS 1.6 0.0 - 7.0 % 04/07/2024 2:20 PM [facility] BASOPHILS 0.5 0.0 - 3.0 % 04/07/2024 2:20 PM [facility] IMMATURE GRANS % 0.5(H) 0.0 - 0.43 % 04/07/2024 2:20 PM INSTALLATION TECH [facility] NRBC % 0.0 % 04/07/2024 2:20 PM INSTALLATION TECH [facility] ABS. NEUTROPHILS TOTAL 1.60(L) 1.69 - 7.81 x10'3/uL 04/07/2024 2:20 PM INSTALLATION TECH [facility] ABS. LYMPHOCYTES 1.74 0.21 - 5.42 x10'3/uL 04/07/2024 2:20 PM INSTALLATION TECH [facility] ABS. MONOCYTES 0.26 0.04 - 1.37 x10'3/uL 04/07/2024 2:20 PM INSTALLATION TECH [facility] ABS. EOSINOPHILS 0.06 0.00 - 0.68 x10'3/uL 04/07/2024 2:20 PM INSTALLATION TECH [facility] ABS. BASOPHILS 0.02 0.00 - 0.08 x10'3/uL 04/07/2024 2:20 PM INSTALLATION TECH [facility] ABS. IMMATURE GRANULOCYTES 0.02 0.00 - 0.06 x10'3/uL 04/07/2024 2:20 PM INSTALLATION TECH [facility] ABS. NUCLEATED RBC'S 0.00 0.00 - 0.01 x10'3/uL 04/07/2024 2:20 PM INSTALLATION TECH [facility] 04/07/2024 11:4 5 AM INSTALLATION TECH us Jen Mcneil MD LABORATORY Final Result [facility] [address] [place] [address], [place] * URIC ACID BLOOD (04/07/2024 11:45 AM INSTALLATION TECH) URIC ACID 4.8 3.5 - 7.2 MG/DL 04/07/2024 8:39 PM INSTALLATION TECH [facility] 04/07/2024 11:4 5 AM INSTALLATION TECH Jen Mcneil MD LABORATORY Final Result [facility] [address] [place] [address], * CT CHEST+ABD+PEL W CON (03/21/2024 8:07 AM INSTALLATION TECH) Anatomical Region Laterality Modality Chest, Abdomen, Pelvis Computed Tomography 03/21/2024 8:18 AM INSTALLATION TECH Impressions 03/21/2024 8:22 AM INSTALLATION TECH IMPRESSION: 1. Significant interval increase in pathologic adenopathy throughout the chest abdomen and pelvis as described. The overall appearance is strongly suggestive of lymphoma Ordered By: MARCIA NEWMAN Interpreted By: Steve Garcia MD, 03/21/2024 8:18 AM Narrative 03/21/2024 8:22 AM INSTALLATION TECH [address] [place] [address] CT CHEST, ABDOMEN AND PELVIS WITH CONTRAST Clinical history: Inguinal adenopathy. Technique: Dynamic helical images of the chest, abdomen and pelvis were obtained. The patient received 100 mL of Isovue 370 nonionic intravenous contrast through an IV in the right antecubital fossa. A dose lowering technique was used for this procedure, which may include, but is not limited to, dose reduction technique, automated exposure control, the use of iterative reconstruction, and ALARA (As Low As Reasonably Achievable) / Image Gently techniques. Comparison: October 10, 2022. FINDINGS: The heart appears normal in size and morphology. No significant pericardial effusion is seen. Pathologic adenopathy is noted within the axilla a and is increased in size from previous. Pathologic adenopathy is now present throughout the mediastinum that also appears increased from previous. Bilateral supraclavicular lymph nodes are also pathologically enlarged. The great vessels are within normal limits. Pulmonary windows reveal a small nodular density within the posterior aspect of the right lower lobe adjacent to the hemidiaphragm that remain stable. No areas of airspace consolidation are seen. No pleural fluid is noted. Images of the abdomen demonstrate the overall size and morphology of the liver to be within normal limits. No hepatic lesions are observed. No ascites is seen. The gallbladder is present and normally distended. No stones are observed within its lumen and there is no evidence of cholecystitis or biliary obstruction. The pancreas, spleen, and adrenal glands appear grossly normal. The kidneys are normal in size bilaterally. There is normal symmetric enhancement after the administration of contrast. No stones or hydronephrosis is apparent. Both ureters follow normal expected course through the retroperitoneum. Images of the pelvis demonstrate the urinary bladder to appear normal. The prostate is normal in size. The stomach and small bowel appear grossly normal throughout. The terminal ileum is within normal limits. The appendix is within normal limits. The colon appears normal. Lymph nodes that were previously noted within both inguinal canals are not pathologically enlarged. Adenopathy is also present within both iliac chains, throughout the retroperitoneum, and at the base of the mesentery. The overall appearance is strongly suggestive of lymphoma Procedure Note Steve Garcia MD - 03/21/[address] [place], [place] [address] CT CHEST, ABDOMEN AND PELVIS WITH CONTRAST Clinical history: Inguinal adenopathy. Technique: Dynamic helical images of the chest, abdomen and pelvis wereobtained. The patient received 100 mL of Isovue 370 nonionic intravenouscontrast through an IV in the right antecubital fossa. A dose loweringtechnique was used for this procedure, which may include, but is notlimited to, dose reduction technique, automated exposure control, the useof iterative reconstruction, and ALARA (As Low As Reasonably Achievable) /Image Gently techniques. Comparison: October 10, 2022. FINDINGS: The heart appears normal in size and morphology. No significantpericardial effusion is seen. Pathologic adenopathy is noted within theaxilla a and is increased in size from previous. Pathologic adenopathy isnow present throughout the mediastinum that also appears increased fromprevious. Bilateral supraclavicular lymph nodes are also pathologicallyenlarged. The great vessels are within normal limits. Pulmonary windows reveal a small nodular density within the posterioraspect of the right lower lobe adjacent to the hemidiaphragm that remainstable. No areas of airspace consolidation are seen. No pleural fluid isnoted. Images of the abdomen demonstrate the overall size and morphology of theliver to be within normal limits. No hepatic lesions are observed. Noascites is seen. The gallbladder is present and normally distended. Nostones are observed within its lumen and there is no evidence ofcholecystitis or biliary obstruction. The pancreas, spleen, and adrenalglands appear grossly normal. The kidneys are normal in size bilaterally.There is normal symmetric enhancement after the administration ofcontrast. No stones or hydronephrosis is apparent. Both ureters follownormal expected course through the retroperitoneum. Images of the pelvis demonstrate the urinary bladder to appear normal. Theprostate is normal in size. The stomach and small bowel appear grossly normal throughout. The terminalileum is within normal limits. The appendix is within normal limits. Thecolon appears normal. Lymph nodes that were previously noted within both inguinal canals are notpathologically enlarged. Adenopathy is also present within both iliacchains, throughout the retroperitoneum, and at the base of the mesentery.The overall appearance is strongly suggestive of lymphoma IMPRESSION: 1. Significant interval increase in pathologic adenopathy throughout thechest abdomen and pelvis as described. The overall appearance is stronglysuggestive of lymphoma Ordered By: MARCIA NEWMAN Interpreted By: Steve Garcia MD, 03/21/2024 8:[address] Final Resul t * CT SOFT TISSUE NECK W CON (03/18/2024 7:41 AM INSTALLATION TECH) Anatomical Region Laterality Modality Neck Computed Tomogra phy 03/18/2024 1:22 PM INSTALLATION TECH Impressions 03/18/2024 1:33 PM INSTALLATION TECH IMPRESSION: Multiple pathologic size lymph nodes within the neck. Lymphoma is a consideration. No distinct neck mass. Follow-up with CT of the chest, abdomen and pelvis Referred By: MARCIA NEWMAN Interpreted By: Sanket Bell MD, 03/18/2024 1:22 PM Narrative 03/18/2024 1:33 PM INSTALLATION TECH [address] [place] [address] EXAMINATION: CT SOFT TISSUE NECK WITH CONTRAST EXAM DATE/TIME: 03/18/2024 7:28 AM REASON FOR EXAM: lymphadenopathy to neck and groin Bilateral neck swelling for up to 4 months. COMPARISON: None TECHNIQUE: CT examination of the neck was performed after administration of intravenous contrast, 94 cc of Isovue-370 Axial and multiplanar reformatted images were obtained. A dose lowering technique was used for this procedure, which may include, but is not limited to, dose reduction technique, automated exposure control, iterative reconstruction, ALARA (As Low As Reasonably Achievable), or Image Gently techniques. FINDINGS: Limited evaluation of lower intracranial structures is within normal limits. Partial visualization of the globes and orbits is unremarkable. On bone windows, no suspicious lesion or fracture. Mild degenerative change in cervical spine Limited evaluation of the paranasal sinuses is unremarkable. Limited evaluation of the lung apices is grossly normal. Partial visualization of the upper mediastinum demonstrates partially visualized lymphadenopathy. Also partially visualized lymphadenopathy in the left axilla. No suspicious findings in the airway. No evidence for glottic, subglottic, supraglottic mass. Thyroid gland is unremarkable. Submandibular gland unremarkable bilaterally. Normal-sized of parotid glands with slightly prominent intraparotid lymph nodes. Exam is positive for multiple pathologic size lymph nodes. Numerous lymph nodes in the posterior cervical chain and in the posterior soft tissues of the neck. Largest lymph nodes are at level 4, measuring up to 1.9 cm in short axis on the right side.. Lymphadenopathy does cause mass effect on the internal jugular veins with moderate narrowing. Carotid vasculature is patent. No evidence of an mucosal lesion of the pharynx. Parapharyngeal fat planes are preserved. Interior Horticulturist spaces within normal limits. Retropharyngeal space within normal limits. Procedure Note Sanket Bell MD - 03/18/[address] [place] [address] EXAMINATION: CT SOFT TISSUE NECK WITH CONTRAST EXAM DATE/TIME: 03/18/2024 7:28 AM REASON FOR EXAM: lymphadenopathy to neck and groin Bilateral neck swelling for up to 4 months. COMPARISON: None TECHNIQUE: CT examination of the neck was performed after administrationof intravenous contrast, 94 cc of Isovue-370 Axial and multiplanarreformatted images were obtained. A dose lowering technique was used for this procedure, which may include,but is not limited to, dose reduction technique, automated exposurecontrol, iterative reconstruction, ALARA (As Low As ReasonablyAchievable), or Image Gently techniques. FINDINGS: Limited evaluation of lower intracranial structures is within normallimits. Partial visualization of the globes and orbits is unremarkable. On bone windows, no suspicious lesion or fracture. Mild degenerativechange in cervical spine Limited evaluation of the paranasal sinuses is unremarkable. Limited evaluation of the lung apices is grossly normal. Partialvisualization of the upper mediastinum demonstrates partially visualizedlymphadenopathy. Also partially visualized lymphadenopathy in the leftaxilla. No suspicious findings in the airway. No evidence for glottic, subglottic,supraglottic mass. Thyroid gland is unremarkable. Submandibular gland unremarkable bilaterally. Normal-sized of parotid glands with slightly prominent intraparotid lymphnodes. Exam is positive for multiple pathologic size lymph nodes. Numerous lymphnodes in the posterior cervical chain and in the posterior soft tissues ofthe neck. Largest lymph nodes are at level 4, measuring up to 1.9 cm inshort axis on the right side.. Lymphadenopathy does cause mass effect on the internal jugular veins withmoderate narrowing. Carotid vasculature is patent. No evidence of an mucosal lesion of the pharynx. Parapharyngeal fat planes are preserved. Interior Horticulturist spaces within normal limits. Retropharyngeal space within normal limits. IMPRESSION: Multiple pathologic size lymph nodes within the neck. Lymphoma is aconsideration. No distinct neck mass. 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
--- OUTSIDE RECORDS SUMMARY | 2024-05-09 02:58 | XMS_ITS | Referral Summary ---
Author Organization [facility] Address [address] [place] [address] Care Team Providers [facility] Specialist Name Role Phone Unavailable Primary Care Provider Unavailabl e Source Comments [facility],non-owned Affiliates and Associated Physician Practices is amultiple site organization consisting of ambulatory clinics and hospital sitesin [place], [place], [place] and [place]. This disclosure is being madepursuant to the Care Everywhere program and may not contain all information available regarding this patient. 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 SERVICER REPAIRER Height 180.3 cm (5' 11 ) 02/28/2021 10:42 AM COIN MACHINE SERVICER REPAIRER Body Mass Index 31.1 02/28/2021 10:42 AM COIN MACHINE SERVICER REPAIRER Plan of Treatment Not on file Procedures Procedure Name Priority Date/Time Associated Diagnosis Comments HEPATITIS C ANTIBODY Routine 02/28/2021 12:18 PM COIN MACHINE SERVICER REPAIRER Arthralgia, unspecified joint High risk medication use Long-term use of immunosuppressant medication Encounter for therapeutic drug level monitoring Vasculitis (HCC) HIV-1 HIV-2 ANTIBODY + HIV P24 AG PANEL Routine 02/28/2021 12:18 PM COIN MACHINE SERVICER REPAIRER Arthralgia, unspecified joint High risk medications (not anticoagulants) long-term use Long-term use of immunosuppressant medication Encounter for therapeutic drug level monitoring Vasculitis (HCC) from Last 3 Months or Most Recently Relevant to Health Maintenance Results * HIV-1 HIV-2 ANTIBODY + HIV P24 AG PANEL (02/28/2021 12:18 PM COIN MACHINE SERVICER REPAIRER) HIV Antigen/Antibod y 1 & 2 Non-reacti ve Non-react jim 02/28/2021 2:48 PM COIN MACHINE SERVICER REPAIRER [facility] Comment:No Laboratory eviden ce of HIV infection. Blood BLOOD SPECIMEN / Unknown Lab Venipuncture / Unknown 02/28/2021 12:18 PM COIN MACHINE SERVICER REPAIRER 02/28/2021 12:54 PM COIN MACHINE SERVICER REPAIRER Irina Rodriguez MD LAB - CHEMISTRY ORDERABLES [facility] [address] [place] [id number], [facility] [phone] * (ABNORMAL) HEPATITIS C ANTIBODY (02/28/2021 12:18 PM COIN MACHINE SERVICER REPAIRER) Hepatitis C Antibody Reactive( A) Non-react jmi 02/28/2021 2:52 PM COIN MACHINE SERVICER REPAIRER [facility] Comment:Hepatitis C Antibody screen is consistent with past or current infection with Hepatitis C Virus. Nucleic Acid Test ([facility]ACE) for Hepatitis C Viral RNA should be performed for initial HCV workup, and for differentiating active/chronic infection from resolved infection. Blood BLOOD SPECIMEN / Unknown Lab Venipuncture / Unknown 02/28/2021 12:18 PM COIN MACHINE SERVICER REPAIRER 02/28/2021 12:54 PM COIN MACHINE SERVICER REPAIRER Irina Rodriguez MD LAB - CHEMISTRY ORDERABLES [facility] [address] [place] [id number], [facility] [phone] from Last 3 Months or Most Recently Relevant to Health Maintenance
[2024-05-09 06:40] VITALS: BP 127/70; PULSE 69; RESP 16; TEMP 36.6; O2SAT 97
[2024-05-09 07:15] VITALS: BMI 28.9
[2024-05-09] MEDS: LACTATED RINGERS 1,000 ML 30 ML IV CONT (07:15)
--- NOTE | 2024-05-09 07:26 | WPDHPUPDATE1 ---
History and Physical Update Update Date/Time: 05/09/24 07:26 History and Physical has been reviewed, including an updated exam of the patient. There are NO changes in the patient's condition. Risks, benefits, and alternatives have been discussed and questions answered. Patient agrees to proceed with procedure.
--- NOTE | 2024-05-09 07:39 | WPDANESEPPF ---
Anes - Initial Pre Proc Eval Procedure: Operation Date: 05/09/24 08:30 Proposed Procedures p Incisional Right Groin Lymph Node Biopsy - Odilon Swenson MD Date/Time: 05/09/24 07:39 Surgeon: Odilon Swenson MD Pre Op Diagnosis: lymphadenopathy of bilateral groin Patient Data Age: 44 Gender: M Height: 1.8 m Weight: 94.1 kg Allergies Allergy/AdvReac Type Severity Reaction Status Date / Time No Known Allergies Allergy Verified 05/09/24 07:35 Home Medications ?Medication ?Instructions ?Recorded ?Confirmed ?Type acetaminophen 325 mg tablet 650 mg PO BID PRN fever or pain 04/30/24 04/30/24 History albuterol sulfate 90 mcg/actuation 2 inh inhalation QID PRN shortness 04/30/24 04/30/24 History aerosol inhaler (Ventolin HFA) of breath or wheezing ibuprofen 800 mg tablet (IBU) 800 mg PO BID PRN pain 04/30/24 05/09/24 History tolnaftate 1 % topical cream 1 applic topical DAILY 04/30/24 04/30/24 History (Antifungal (tolnaftate)) Patient hx anesthesia problems: none Family hx anesthesia problems: none Results Review: All pre-operative results and documents have been reviewed as part of the pre-operative evaluation. [facility] Past Medical History Medical History Irritable bowel syndrome Migraine Cancer Asthma Surgical History Surgical History (Updated 05/09/24 @ 07:42 by Max Samayoa MD) H/O hand surgery Family History Family History (Updated 04/29/24 @ 11:00 by Larissa Ruff MA) Father Alcoholism Mother Lymphoma Hypertension Grandparent Cerebrovascular accident Social History Social History (Updated 05/09/24 @ 07:42 by Max Samayoa MD) Smoking status: Former smoker Current Housing: Decline to Answer Concerned About Future Housing: Decline to Answer Difficulty Paying Gas/Electric Bills: Decline to Answer Difficulty Paying for Meds: Decline to Answer Currently Unemployed: Decline to Answer Education: Decline to Answer Difficulty w/ Childcare or Family Care: Decline to Answer Living arrangements: incarcerated Anes - Eval Final PreProcedure Day of Procedure 05/09/24 07:39 Patient weight: overweight Heart: regular rate and rhythm Lungs: clear to auscultation Airway: Mallampati scale class II and special considerations poor dentition Neurological: alert and oriented Last oral intake: >/= 8 hours ASA classification: III Emergent: no Anesthetic plan: proceed Anesthesia type and monitoring: general LMA and standard monitoring Results Review: All pre-operative results and documents have been reviewed as part of the pre-operative evaluation. Informed Consent: The patient's anesthetic plan and its attendant risks and benefits were discussed with the patient/family/POA. Questions were solicited and answers provided to the satisfaction of the patient/family/POA.
[2024-05-09] MEDS: ceFAZolin 2 GM/D5W 50 ML 2 GM/50 ML BAG IVPB (08:44)
[2024-05-09] MEDS: LIDO 1%/EPINEPHRINE/PF 1:200,000 30 ML VIAL XX (09:02)
[2024-05-09] MEDS: BUPivacaine HCL 0.5% 10 ML AMP 30 ML INFILTRATE (09:02)
--- NOTE | 2024-05-09 09:28 | W.PM.PROC2 ---
Procedure Note - Detailed Date of Procedure 05/09/24 Pre-op Diagnosis Right groin lymphadenopathy Post-op Diagnosis Same Procedure Performed Excisional right groin lymph node biopsy. Surgeon Odilon Swenson MD Javascript Engineer Steve Valentine L[employer]SEMBLER Anesthesia General Indications Patient is a 44-year-old male who is prisoner who was incarcerated 1 local facilities. She has had lymphadenopathy in the bilateral cervical, bilateral supraclavicular, bilateral axillary and bilateral groin regions for over a year. He has never had a lymph node biopsy. The family history of lymphoma. He presents now for an excisional right groin lymph node biopsy for diagnosis. Findings The patient had multiple large lymph nodes palpable in the right groin region. There was 1 discrete lymph node that was biopsied in its entirety and sent to pathology fresh for lymph node protocol. The lymph node measured 3x1.8x1cm. Description of Procedure After informed consent was obtained patient brought to the operating room was placed in the supine position and then general LMA anesthesia was administered. The right groin region was then prepped and draped usual sterile fashion after frog legging the right lower extremity. A time-out was then performed correctly identifying the patient as well as procedure to be performed. Site marking was verified. He was given perioperative IV antibiotics. An oblique incision paralleling the crease in the right groin was then made with a scalpel and dissection was carried down through the dermis skin with a scalpel. Electrocautery was then used to dissect down to the lymph node which was definitely enlarged and actually had some pigment within it but the patient did have multiple tattoos and so this could certainly just be pigment from tattoo. I then completely excised out the lymph node with a combination electrocautery and sharp scissor dissection. Feeding blood vessels and left vessels to the lymph node were ligated with small titanium hemoclips. Once the lymph node was completely excised it was measured and it was 3x1.8x1cm. It was sent to pathology fresh for lymph node protocol. Hemostasis was achieved incision utilized electrocautery. The wound was then irrigated sterile saline solution hemostasis was good. The incision was then closed utilizing multiple layers of interrupted 3-0 Vicryl sutures in the subcutaneous tissues. The skin edges were then approximated utilizing a running subcuticular 4-0 Monocryl suture. The incision was then cleaned the skin glue was applied. The patient tolerated the procedure well no complications. All sponges, needles, and instrument counts were correct at the end procedure. EBL was __2_cc. The patient was awakened and taken to recovery in stable and satisfactory condition. Implants None Estimated Blood Loss 2 Drains No Packing No Pathology Yes (Lymph node to pathology fresh for lymph node protocol) Complications No immediate complications Condition Stable Disposition PACU [facility] Billing Surgery - Charge Forward: Surgery Billing
[2024-05-09 09:30] VITALS: BP 87/42; PULSE 78; RESP 18; TEMP 36.2; O2SAT 98
[2024-05-09 09:45] VITALS: BP 103/57; PULSE 78; RESP 13; O2SAT 99
[2024-05-09 10:00] VITALS: BP 114/60; PULSE 73; RESP 14; O2SAT 100
[2024-05-09 10:20] VITALS: BP 126/68; PULSE 69; RESP 16; O2SAT 97
[2024-05-09 10:43] VITALS: BP 112/70; PULSE 65; RESP 16
== END 2024-05-09 10:50 | disposition home or self-care (01) ==
PROVIDERS: Visit Provider Surgery
PROC: (CPT 38531; principal; 2024-05-09 08:30)
DX: C91.10 Chronic lymphocytic leukemia of B-cell type not having achieved remission (principal); K58.9 Irritable bowel syndrome, unspecified; J45.909 Unspecified asthma, uncomplicated; Z79.51 Long term (current) use of inhaled steroids; Z79.1 Long term (current) use of non-steroidal anti-inflammatories (NSAID); Z98.890 Other specified postprocedural states; Z87.891 Personal history of nicotine dependence; Z85.9 Personal history of malignant neoplasm, unspecified; Z80.7 Family history of other malignant neoplasms of lymphoid, hematopoietic and related tissues; Z82.49 Family history of ischemic heart disease and other diseases of the circulatory system
CPT/HCPCS: 38531; 88184; 88305; 88333; C1713; J0690; J1100; J2003; J2004; J2250; J2405; J2704; J3010; J7120

== ENCOUNTER 2024-07-01 07:30 | Outpatient (CLI) | payer OTHER, SELFPAY ==
--- NOTE | ~2024-07-01 | BM_ITS ---
EXAMINATION: CCL bone marrow asp w bx diag ORDER COMPLETED DATE: 07/01/2024 09:39 INDICATION: Lymphadenopathy. Leukemia. TECHNIQUE: A time-out was performed to verify the patient's name, date of , and procedure to b e performed. The procedure including the risks, benefits, and alternatives was discussed with the pat ient. Risks discussed included bleeding and infection. The patient understood the risks and agreed to proceed. The skin overlying the right posterior iliac spine was prepped and draped in usual sterile fashion. Anesthetic was administered with 1% lidocaine subcutaneously. Systemic analgesia was provide d with 50 mcg fentanyl and 1 mg Versed IV. An 11 gauge needle was inserted into the ilium with fluoro scopic guidance. Bone marrow was aspirated. An 8 gauge needle was then inserted into the ilium with f luoroscopic guidance. A core bone marrow biopsy was obtained. There were no immediate complications. Fluoroscopy exposure time was 0.1 minutes. The total number of images was 59. Total DAP was 2.54 mGyc m^2. FINDINGS: Real-time fluoroscopy demonstrates a marker overlying the right posterior iliac spine. IMPRESSION: 1. Successful fluoro-guided bone marrow aspiration. 2. Successful fluoro-guided bone marrow core biopsy. Reviewed, dictated and finalized at location A.
--- OUTSIDE RECORDS SUMMARY | 2024-07-01 00:25 | XMS_ITS | Clinical Summary ---
Author Organization [facility] System Address [facility] [place] [address] Care Team Providers Care Rn Transition Name Role Phone Laura Alves MD, [facility] Primary Care Provider [phone] Allergies No known active allergies Medications No known medications Active Problems No known active problems Encounters Date Type Department Care Team Description 06/09/2024 2:41 PM CDT - 06/09/2024 11:59 PM CDT Hospital Encounter [facility] [address] [place] [address] Jen Mcneil MD Discharge Disposition: Home or Self Care (Routine Discharge) 06/09/2024 Orders Only [facility] [address] [address] Jen Mcneil MD 04/07/2024 2:15 PM CHECK TOTALER - 04/07/2024 11:59 PM CHECK TOTALER Hospital Encounter [facility] [address] [address] Jen Mcneil MD Discharge Disposition: Home or Self Care (Routine Discharge) 04/07/2024 Orders Only [facility] [address] [address] Jen Mcneil MD from Last 3 Months Social History Tobacco [...] Date Last Done Comments Annual Physical 1985 DTaP, Tdap and Td Vaccines ( 1 - Tdap) 2001 Hepatitis B Vaccines (1 of 3 - 19+ 3-dose series) 2001 COVID-19 Vaccine (2023-2 5 season) 2023 Hepatitis C Completed 06/09/2024, 02/28/2021 HPV Vaccines Aged Out No longer eligi ble based on patient's age to complete this topic Meningococcal B Vaccine Aged Out No l onger eligible based on patient's age to complete this topic Meningococcal Vaccine Aged Out No elia julio eligible based on patient's age to complete this topic Pneumococcal Vaccine: Pediatrics (0 to 5 Years) and At-Risk Patients (6 to 64 Years) Aged Out No longer eligible b ased on patient's age to complete this topic RSV Immunizations Under 20 Months Aged Out No longer eligible b ased on patient's age to complete this topic Procedures Procedure Name Priority Date/Time Associated Diagnosis Comments HCV RNA,PCR QUANT. Routine 06/09/2024 2: 44 PM CDT IMMUNOGLOBULINS IGA IGG IGM Routine 06/09/2024 12:50 PM CDT Small lymphocytic lymphoma ([facility]HS[facility]HCC) IMMUNOFIXATION Routine 06/09/2024 12:50 PM CDT Small lymphocytic lymphoma ([facility] H[facility]/HCC) PROTEIN, ELECTROPHORESIS Routine 06/09/2024 12:50 PM CDT Small lymphocytic lymphoma ([facility] HHS/HCC) LDH, LACTATE DEHYDROGENASE Routine 06/09/2024 12:50 PM CDT Small lymphocytic lymphoma (CMS/HCC HHS/HCC) CBC W/DIFF AUTOMATED Routine 06/09/2024 12:50 PM CDT Small lymphocytic lymphoma (CMS/HCC HHS/HCC) COMPREHENSIVE METABOLIC PANEL Routine 06/09/2024 12:50 PM CDT Small lymphocytic lymphoma (CMS/HCC HHS/HCC) HEPATITIS C ANTIBODY Routine 06/09/2024 12:50 PM CDT Small lymphocytic lymphoma (CMS/HCC HHS/HCC) HEPATITIS B CORE ANTIBODY Routine 06/09/2024 12:50 PM CDT Small lymphocytic lymphoma (CMS/HCC HHS/HCC) HEPATITIS B SURFACE AG, EIA Routine 06/09/2024 12:50 PM CDT Small lymphocytic lymphoma (CMS/HCC HHS/HCC) CBC W/DIFF AUTOMATED Routine 04/07/2024 11:45 AM CHECK TOTALER Adenopathy COMPREHENSIVE METABOLIC PANEL Routine 04/07/2024 11:45 AM CHECK TOTALER Adenopathy LDH, LACTATE DEHYDROGENASE Routine 04/07/2024 11:45 AM CHECK TOTALER Adenopathy HIV 1 ANTIGEN(S), WITH HIV-1 AND HIV-2 ANTIBODIES Routine 04/07/2024 11:45 AM CHECK TOTALER Adenopathy SED RATE, ERYTHROCYTE (ESR) Routine 04/07/2024 11:45 AM CHECK TOTALER Adenopathy URIC ACID BLOOD Routine 04/07/2024 11:45 AM CHECK TOTALER Adenopathy from Last 3 Months Results * HCV RNA,PCR QUANT. (06/09/2024 2:44 PM CDT) HEPATITIS C RNA PCR QNT <15 IU/mL 06/13/2024 6:17 AM CDT [facility] Comment: HCV RNA Not Detected HEP C RNA PCR QNT LOG <1.18 log IU/mL 06/13/2024 6:17 AM CDT [facility] Comment: HCV RNA Not Detected Reference Range: Not Detected IU/mL Not Detected Log IU/mL For additional information please refer to [email or web address] Maps/faq/ORW95h1 (This link is being provided for informational/ educational purposes only.) Test Performed by [employer], [employer] [facility], [address] [place] [address] Steve Machado M.D., Ph.D., Director of Laboratories , [facility] [id number] 06/09/2024 2:44 PM CDT us Jen Mcneil MD LABORATORY Final Result [facility] [place] [id number] [place], [place] , * (ABNORMAL) COMPREHENSIVE METABOLIC PANEL (06/09/2024 12:50 PM CDT) Only the most recent of2 resultswithin the time period is included. [facility] GLUCOSE 96 70 - 99 MG/DL 06/09/2024 3:24 PM CDT [facility] BUN 9 7 - 18 MG/DL 06/09/2024 3:24 PM CDT [facility] CREATININE S/P/B 1.17 0.50 - 1.20 MG/DL 06/09/2024 3:24 PM CDT [facility] SODIUM S/P/B 142 136 - 145 MMOL/L 06/09/2024 3:24 PM CDT [facility] POTASSIUM S/P/B 4.4 3.5 - 5.1 MMOL/L 06/09/2024 3:24 PM CDT [facility] CHLORIDE S/P/B 104 100 - 108 MMOL/L 06/09/2024 3:24 PM CDT [facility] CO2 30.9 21.0 - 32.0 MMOL/L 06/09/2024 3:24 PM CDT [facility] CALCIUM S/P/B 9.0 8.5 - 10.1 MG/DL 06/09/2024 3:24 PM CDT [facility] BILIRUBIN TOTAL S/P/B 0.7 0.2 - 1.2 MG/DL 06/09/2024 3:24 PM CDT [facility] Comment: THIS ASSAY IS NOT RECOMMENDED FOR PATIENTS UNDERGOING TREATMENT WITH ELTROMBOPAG DUE TO THE POTENTIAL FOR FALSELY ELEVATED RESULTS. TOTAL PROTEIN S/P/B 7.4 6.4 - 8.2 G/DL 06/09/2024 3:24 PM CDT [facility] ALBUMIN S/P/B 3.9 3.4 - 5.0 G/DL 06/09/2024 3:24 PM CDT [facility] AST 23 15 - 37 U/L 06/09/2024 3:24 PM CDT [facility] ALT 23 16 - 60 U/L 06/09/2024 3:24 PM CDT [facility] ALKALINE PHOSPHATASE S/P/B 84 50 - 136 U/L 06/09/2024 3:24 PM CDT [facility] ANION GAP 7.1 5.0 - 15.0 MMOL/L 06/09/2024 3:24 PM CDT [facility] BUN CREATININE RATIO 7.7 6 - 26 06/09/2024 3:24 PM CDT [facility] A/G RATIO 1.1 1.0 - 2.5 RATIO 06/09/2024 3:24 PM CDT [facility] GFR ESTIMATE 80(L) >90 ML/MIN/1.7 3 M2 06/09/2024 3:24 PM CDT [facility] Comment: NOTE: eGFR is not calculated for patients <18 years of age. This is an estimated GFR calculation using the new CKD EPI creatinine equation without race and so does not require a correction factor for race. This estimated GFR should not be used for calculating drug doses. 06/09/2024 12:5 0 PM CDT Jen Mcneil MD LABORATORY Final Result Performing Organization Address City/[facility]/ZIP Co de Phone Number [facility] [address] [place] [address], [place] * LDH, LACTATE DEHYDROGENASE (06/09/2024 12:50 PM CDT) Only the most recent of2 resultswithin the time period is included. Pathologist [facility] LDH 190 87 - 241 UNITS/L 06/09/2024 7:28 PM CDT [facility] 06/09/2024 12:5 0 PM CDT Jen Mcneil MD LABORATORY Final Result Performing Organization Address [facility] de Phone Number [facility] [address] [place] [address], [place] [phone] * IMMUNOFIXATION, SERUM (06/09/2024 12:50 PM CDT) Pathologist [facility] IMMUNOFIXATION SERUM SEE PATHOLOGIST'S INTERPRETATION 06/11/2024 1:52 PM CDT [facility] IMMUNOFIX (SERUM) INTERPRETATION THIS SERUM IMMUNOTYPING WAS INTERPRETED BY 06/12/2024 9:37 AM CDT [facility] Comment: DR JEROME CHURCH MD MONOCLONAL PROTEIN NOT IDENTIFIED 06/09/2024 12:5 0 PM CDT Jen Mcneil MD LABORATORY Final Result Performing Organization Address City/[facility]/ZIP Co de Phone Number [facility] [address] [place] [address], [place] [phone] * (ABNORMAL) HEPATITIS C ANTIBODY (06/09/2024 12:50 PM CDT) HEPATITIS C AB REACTIVE(A ) NON-REACTI VE 06/09/2024 8:36 PM CDT [facility] Comment: NOTE: A POSITIVE RESULT WILL BE CONFIRMED BY THE HEP C RNA, QUANT, PCR TEST. 06/09/2024 12:5 0 PM CDT us Jen Mcneil MD LABORATORY Final Result [facility] [address] [place] [address], [place] [phone] * HEPATITIS B SURFACE AG, EIA (06/09/2024 12:50 PM CDT) HEPATITIS B SURFACE AG NON-REACTI VE NON-REACTI VE 06/09/2024 8:04 PM CDT [facility] 06/09/2024 12:5 0 PM CDT us Jen Mcneil MD LABORATORY Final Result Performing Organization Address City/[facility]/ZIP Co de Phone Number [facility] [address] [place] [address], [place] [phone] * HEPATITIS B CORE ANTIBODY (06/09/2024 12:50 PM CDT) HEP B CORE TOTAL AB NON-REACTI VE NON-REACTI VE 06/09/2024 8:36 PM CDT [facility] 06/09/2024 12:5 0 PM CDT us Jen Mcneil MD LABORATORY Final Result [facility] [address] [place] [address], [place] [phone] * CBC W/DIFF AUTOMATED (06/09/2024 12:50 PM CDT) Only the most recent of2 resultswithin the time period is included. [facility] WBC 4.70 4.50 - 11.00 x10'3/uL 06/09/2024 2:54 PM CDT [facility] RBC 5.31 4.50 - 5.90 x10'6/uL 06/09/2024 2:54 PM CDT [facility] HGB 15.4 14.0 - 18.0 G/DL 06/09/2024 2:54 PM CDT [facility] HCT 46.4 43.0 - 54.0 % 06/09/2024 2:54 PM CDT [facility] MCV 87.4 80.0 - 100.0 FL 06/09/2024 2:54 PM CDT [facility] MCH 29.0 26.0 - 34.0 PG 06/09/2024 2:54 PM CDT [facility] MCHC 33.2 31.0 - 37.0 G/DL 06/09/2024 2:54 PM CDT [facility] RDW 13.4 11.6 - 14.8 % 06/09/2024 2:54 PM CDT [facility] PLT 234 130 - 400 x10'3/uL 06/09/2024 2:54 PM CDT [facility] MPV 10.3 7.0 - 12.0 FL 06/09/2024 2:54 PM CDT [facility] CBC COMMENT AUTOMATED RBC MORPHOLOGY AND PLATELET EVALUATION NORMAL 06/09/2024 2:54 PM CDT [facility] NEUTROPHILS % 57.5 40.0 - 74.0 % 06/09/2024 2:54 PM CDT [facility] LYMPHOCYTES % 33.6 14.0 - 46.0 % 06/09/2024 2:54 PM CDT [facility] MONOCYTES % 7.2 4.0 - 13.0 % 06/09/2024 2:54 PM CDT [facility] EOSINOPHILS 1.1 0.0 - 7.0 % 06/09/2024 2:54 PM CDT [facility] BASOPHILS 0.4 0.0 - 3.0 % 06/09/2024 2:54 PM CDT [facility] IMMATURE GRANS % 0.2 0.0 - 0.43 % 06/09/2024 2:54 PM CDT [facility] NRBC % 0.0 % 06/09/2024 2:54 PM CDT [facility] ABS. NEUTROPHILS TOTAL 2.70 1.69 - 7.81 x10'3/uL 06/09/2024 2:54 PM CDT [facility] ABS. LYMPHOCYTES 1.58 0.21 - 5.42 x10'3/uL 06/09/2024 2:54 PM CDT [facility] ABS. MONOCYTES 0.34 0.04 - 1.37 x10'3/uL 06/09/2024 2:54 PM CDT [facility] ABS. EOSINOPHILS 0.05 0.00 - 0.68 x10'3/uL 06/09/2024 2:54 PM CDT [facility] ABS. BASOPHILS 0.02 0.00 - 0.08 x10'3/uL 06/09/2024 2:54 PM CDT [facility] ABS. IMMATURE GRANULOCYTES 0.01 0.00 - 0.06 x10'3/uL 06/09/2024 2:54 PM CDT [facility] ABS. NUCLEATED RBC'S 0.00 0.00 - 0.01 x10'3/uL 06/09/2024 2:54 PM CDT [facility] 06/09/2024 12:5 0 PM CDT us Bachir Mcneil MD LABORATORY Final Result Performing Organization Address City/[facility]/ZIP Co de Phone Number [facility] [place] [facility] [address] [place] [address], [place] * PROTEIN, ELECTROPHORESIS (06/09/2024 12:50 PM CDT) TOTAL PROTEIN S/P/B 7.5 6.0 - 8.3 G/DL 06/11/2024 1:50 PM CDT [facility] ALBUMIN S/P/B 4.5 3.4 - 4.9 G/DL 06/11/2024 1:47 PM CDT [facility] [id number] S/P/B 0.3 0.2 - 0.4 G/DL 06/11/2024 1:47 PM CDT [facility] [id number] S/P/B 0.6 0.4 - 1.0 G/DL 06/11/2024 1:47 PM CDT [facility] BETA GLOBULIN S/P/B 0.7 0.5 - 1.2 G/DL 06/11/2024 1:47 PM CDT [facility] GAMMA GLOBULIN S/P/B 1.5 0.6 - 1.6 G/DL 06/11/2024 1:47 PM CDT [facility] ELECTROPHORESIS INTERPRETATION THIS SERUM PEP WAS INTERPRETED BY 06/12/2024 9:37 AM CDT [facility] Comment: DR JEROME CHURCH MD THE TOTAL SERUM PROTEIN IS NORMAL. ELECTROPHORESIS IDENTIFIES NO QUANTITATIVE ABNORMALITIES WITHIN THE PROTEIN FRACTIONS. MONOCLONAL PROTEINS ARE NOT DETECTED. 06/09/2024 12:5 0 PM CDT Jen Mcneil MD LABORATORY Final Result [facility] [address] [place] [address], [id number] * (ABNORMAL) IMMUNOGLOBULINS IGA IGG IGM (06/09/2024 12:50 PM CDT) Pathologist [facility] IGA 131 47 - 310 mg/dL 06/19/2024 9:27 AM CDT [facility] IGG 1,724(H) 600 - 1,640 mg/dL 06/19/2024 9:27 AM CDT [facility] IGM 65 50 - 300 mg/dL 06/19/2024 9:27 AM CDT [facility] Comment: Test Performed by [employer], [employer] [facility], [address] [place], [place] Steve Machado M.D., Ph.D., Director of Laboratories , [facility] [id number] 06/09/2024 12:5 0 PM CDT Jen Mcneil MD LABORATORY Final Result [facility] [place] [id number] [place], [place] , [place] [phone] * HIV 1 ANTIGEN(S), WITH HIV-1 AND HIV-2 ANTIBODIES (04/07/2024 11:45 AM CHECK TOTALER) [facility] HIV 1/2 AB+ HIV1 P24 AG NON-REACTI VE NON-REACTI VE 04/07/2024 8:36 PM CHECK TOTALER [facility] 04/07/2024 11:4 5 AM CHECK TOTALER us Jen Mcneil MD LABORATORY Final Result [facility] [address] [place] [address], [place] [phone] * SED RATE, ERYTHROCYTE (ESR) (04/07/2024 11:45 AM CHECK TOTALER) [facility] ESR 14 <15 MM/HR 04/07/2024 7:48 PM CHECK TOTALER [facility] Comment:Testing performed on Olga iSAYALA. 04/07/2024 11:4 5 AM CHECK TOTALER us Jen Mcneil MD LABORATORY Final Result [facility] [address] [place] [address], [place] [phone] * URIC ACID BLOOD (04/07/2024 11:45 AM CHECK TOTALER) URIC ACID 4.8 3.5 - 7.2 MG/DL 04/07/2024 8:39 PM CHECK TOTALER [facility] 04/07/2024 11:4 5 AM CHECK TOTALER us Jen Mcneil MD LABORATORY Final Result Performing Organization Address City/[facility] de Phone Number [facility] [address] [place] [address], [place] [phone] from Last 3 Months Insurance CARE Advance Directives Documents on File Type Date Recorded Patient Senior Insight Manager Expl anation Advance Directives and Living Will 11/21/2016 12:00 AM ADVANCED DIRECTIVES Care Teams Rn Transition Relationship Specialty Start Date End Date Ran Sanchez MD [facility] [address] [place] [phone] PCP - General INTERNAL MEDICINE 09/28/21
--- OUTSIDE RECORDS SUMMARY | 2024-07-01 00:25 | XMS_ITS | Encounter Summary ---
Author Organization [facility] Address [address] [place] [address] Care Team Providers Care Exhaust Tender Name Role Phone Unavailable Primary Care Provider Unavailabl e Encounter Details Date Type Department Care Team (Late st Contact Info) Description 05/09/2024 Lab Requisition [facility] - Pathology Lab [address] [place] [address] Levar Bermudez MD [address] [address] Generalized enlarged lymph nodes Social History Tobacco Use Types Packs/Day Years Used Date Smoking Tobacco: Never Smokeless Tobacco: Never Alcohol Use Standard Drinks/Week Comments Never 0 (1 standard drink = 0.6 oz pur e alcohol) PHQ-2 Answer Date Recorded PHQ2 TOTAL SCORE 2 07/14/2022 Sex and Gender Information Value Date Recorded Sex Assigned at Not on file Gender Identity Not on file Sexual Orientation Not on file documented as of this encounter Plan of Treatment Not on file documented as of this encounter Procedures Procedure Name Priority Date/Time Associated Diagnosis Comments FLOW CYTOMETRY TISSUE PANEL Routine 05/09/2024 9:11 AM CLAMPER Generalized enlarged lymph nodes documented in this encounter Results * FLOW CYTOMETRY TISSUE PANEL (05/09/2024 9:11 AM CLAMPER) Case Report Flow Cytometry Case: [id number] Authorizing Provider: Levar Bermudez MD Collected: 05/09/2024 09:11 AM Ordering Location: [facility] - Received: 05/09/2024 01:30 PM Pathology Lab Pathologist: Shona Maloney MD Specimen: Lymph Node 3:24 PM [facility] Final Diagnosis Lymph node, right groin, flow cytometric immunophenotypic analysis: - CD5-positive monoclonal B-cell population (79.4% of total events) - See interpretation 5 3:24 PM [facility] Flow Cytometry Interpretation Viability: 60% B-cells: 79.4% of total events are monoclonal B-cells that express CD5, CD19, CD20 (dim), CD23 (dim), and dim surface kappa light chains. T-cells: no immunophenotypic aberrancy detected CD4:CD8 ratio 2.8:1 A cytospin prepared from the flow cytometry specimen has been reviewed for quality technician purposes. 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 Correlation with the concurrent biopsy specimen is required for further classification. 5 3:24 PM [facility] Flow Cytometry Results Differential Result Comment Flow Cell Count /uL 8,000 Total Viability % 60.0 Lymphocytes % 98 Dim CD45 Region % 2 Monocytes % 0 Granulocytes % 0 5 3:24 PM [facility] Reason for test Generalized enlarged lymph nodes 785.6 5 3:24 PM [facility] Client Specimen ID # [id number] 5 3:24 PM [facility] Number of markers 16 were performed. A-2 Flow CD10 A-4 Flow CD20 A-5 Flow CD23 A-10 Flow CD2 A-11 Flow CD3 A-12 Flow CD4 A-16 Flow CD1a A-3 Flow CD19 A-6 Flow CD34 A-7 Flow CD45 A-13 Flow CD5 A-14 Flow CD7 A-15 Flow CD8 A-17 Flow CD30 A-8 [place]+CD19+ A-9 Lambda+CD19+ 5 3:24 PM [facility] Pathologist Location at [facility] 5 3:24 PM [facility] Disclaimer Test performed at [facility], [address] [place] [address], [id number]. *The established laboratory minimum viability is 70%. Values below the minimum may result in the failure to find an abnormal population of cells. This test was developed and its performance characteristics determined by the Flow Cytometry Laboratory. It has not been cleared by the [place] Food and Drug Administration (FDA). The FDA has determined that such clearance or approval is not necessary. This test is used for clinical purposes. It should not be regarded as investigational or for research. This laboratory is regulated under the Clinical Laboratory Improvement Amendments of 1998 (CLIA) as a qualified to perform high complexity clinical testing. 5 3:24 PM [facility] Embedded Images 5 3:24 PM CLAMPER [facility] Pathology/Cytolo gy ENTIRE LYMPH NODE / Unknown 05/09/2024 9:11 AM CLAMPER 05/09/2024 1:30 PM CLAMPER Levar Bermudez MD LAB - PATHOLOGY/CYTO LOGY ORDERABLES Performing Organization Address City/State/[facility] Co de Phone Number [facility] [address] [phone] documented in this encounter Visit Diagnoses Diagnosis Generalized enlarged lymph nodes Enlargement of lymph nodes documented in this encounter
--- OUTSIDE RECORDS SUMMARY | 2024-07-01 00:25 | XMS_ITS | Clinical Summary ---
Author Organization [facility] Address [address] [place] [address] Care Team Providers Care Radiology Transporter Name Role Phone Unavailable Primary Care Provider Unavailabl e Source Comments [facility],non-owned Affiliates and Associated Physician Practices is amultiple site organization consisting of ambulatory clinics and hospital sitesin [place], [place], [place]. This disclosure is being madepursuant to the Care Everywhere program and may not contain all information available regarding this patient. Last updated 17.[facility] [employer] Allergies No known active allergies Medications * [...] Post-inflammatory hyperpigmentation 07/08/2021 Actinic skin damage 07/08/2021 Encounters Date Type Department Care Team Description 05/12/2024 Lab Requisition [facility] - Pathology Lab [address] [place] [address] Levar Bermudez MD Illness, unspecified 05/09/2024 Lab Requisition [facility] - [facility]ology Lab [address] [place] [address] Levar Bermudez MD Generalized enlarged lymph nodes from Last 3 Months Family History Medical History Relation Name Comments [...] 101.2 kg (223 lb) 02/28/2021 10:42 AM REPAIR SERVICER Height 180.3 cm (5' 11 ) 02/28/2021 10:42 AM REPAIR SERVICER Body Mass Index 31.1 02/28/2021 10:42 AM REPAIR SERVICER Plan of Treatment Health Maintenance Due Date Last Done Comments LIPID TESTING 1982 COVID-19 VACCINE (#1) 1987 DTAP/TDAP/TD VACCINES (1 - Tdap) 2001 HEPATITIS B VACCINE (1 of 3 - 19+ 3-dose series) 2001 PNEUMOCOCCAL VACCINE (1 of 2 - PCV) 2001 ZOSTER VACCINE (1 of 2) 2001 INFLUENZA VACCINE (#1) 2023 DEPRESSION SCREENING 03/26/2024 05/11/2022 HEPATITIS C SCREENING Completed 02/28/2021 HIV SCREENING Completed 02/28/2021 HIB VACCINE Aged Out No longer eligi ble based on patient's age to complete this topic HPV VACCINE Aged Out No longer eligi ble based on patient's age to complete this topic MENINGOCOCCAL (Group B) VACC INE SHARED DECISION-MAKING Aged Out No longer eligibl e based on patient's age to complete this topic MENINGOCOCCAL GROUPS A/C/Y/W VACCINE Aged Out No longer eligible b ased on patient's age to complete this topic Procedures Procedure Name Priority Date/Time Associated Diagnosis Comments PATHOLOGY TISSUE Routine 05/09/2024 9:11 AM REPAIR SERVICER Illness, unspecified FLOW CYTOMETRY TISSUE PANEL Routine 05/09/2024 9:11 AM REPAIR SERVICER Generalized enlarged lymph nodes HEPATITIS C ANTIBODY Routine 02/28/2021 12:18 PM REPAIR SERVICER Arthralgia, unspecified joint High risk medication use Long-term use of immunosuppressant medication Encounter for therapeutic drug level monitoring Vasculitis HIV-1 HIV-2 ANTIBODY + HIV P24 AG PANEL Routine 02/28/2021 12:18 PM REPAIR SERVICER Arthralgia, unspecified joint High risk medications (not anticoagulants) long-term use Long-term use of immunosuppressant medication Encounter for therapeutic drug level monitoring Vasculitis from Last 3 Months or Most Recently Relevant to Health Maintenance Results * PATHOLOGY TISSUE (05/09/2024 9:11 AM REPAIR SERVICER) Case Report Surgical Pathology Report Case: [id number] Authorizing Provider: Levar Bermudez MD Collected: 05/09/2024 09:11 AM Ordering Location: [facility] - Received: 05/12/2024 11:59 AM Pathology Lab Pathologist: Sudha Munoz MD Specimen: Lymph Node Biopsy 05/13/2024 5:48 PM [facility] Final Diagnosis Lymph node, right inguinal, excision: - 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 The tumor shows an overall diffuse architecture with scattered proliferation centers noted which impart a vaguely nodular appearance. Well-formed nodules/follicles are not present. The majority of lymphocytes are small with round to ovoid to irregular nuclear contours, small nucleoli, clumped chromatin, and scant to moderate cytoplasm. Admixed larger lymphoid cells with open chromatin, prominent nucleoli, and voluminous cytoplasm are noted in the proliferation centers. Scattered pigmented histiocytes are seen consistent with tattoo ink. Immunohistochemistry stains are performed in addition to flow cytometry to evaluate the lymph node architecture and reacted with appropriate controls. The tumor is positive for CD20, PAX5, CD5, CD23, and Bcl-2 and is negative for CD10, cyclin D1, and CD3. The morphologic and immunohistochemical features are consistent with chronic lymphocytic leukemia/small lymphocytic lymphoma. Flow cytometry corroborates the morphologic impression ([id number]). 05/13/2024 5:48 PM [facility] Clinical History Lymphadenopathy noted bilateral neck, chest, and inguinal regions 05/13/2024 5:48 PM [facility] Gross Description [facility] gross description: Received fresh labeled the patient's identification and right groin lymph node is an ovoid brown-black to brody-pink lymph node measuring 3.5 x 2.2 x 1.5 cm. The cut surfaces brody-pink to brown blackish and fish fleshy. Touch preps are performed. Mechanic Senior sections are submitted in RPMI for flow cytometry and the remaining specimen is entirely submitted in cassettes A1 through A3. 05/13/2024 5:48 PM [facility] Materials Received Received are 5 slide(s) and 3 block(s) labeled [id number] along with a copy of the outside pathology report. [place] [address]. All original materials are returned to the referring institution, along with a copy of our final report. 05/13/2024 5:48 PM [facility] Pathologist Location at [facility] 05/13/2024 5:48 PM [facility] Disclaimer The performance characteristics of all immunohistochemical and indirect immunofluorescence stains (if any) cited in this report were determined by the Histopathology Laboratory of [facility]. Some of these tests were developed by our own laboratory and have not been cleared or approved by the US Food and Drug Administration. The FDA does not require this test to go through premarket FDA review. These tests are used for clinical purposes. They should not be regarded as investigational or for research. This laboratory is certified under the Clinical Laboratory Improvement Amendments (CLIA) as qualified to perform high complexity clinical laboratory testing. This case has been personally reviewed and interpreted by the attending (teaching) pathologist. 05/13/2024 5:48 PM [facility] Embedded Images 05/13/2024 5:48 PM [facility] Pathology/Cytolo gy BIOPSY OF LYMPH NODE / Unknown 05/09/2024 9:11 AM REPAIR SERVICER 05/12/2024 11:59 AM REPAIR SERVICER Levar Bermudez MD LAB - PATHOLOGY/CYTO LOGY ORDERABLES Performing Organization Address City/State/[facility] Co de Phone Number [facility] [address] [phone] * FLOW CYTOMETRY TISSUE PANEL (05/09/2024 9:11 AM REPAIR SERVICER) Case Report Flow Cytometry Case: [id number] Authorizing Provider: Levar Bermudez MD Collected: 05/09/2024 09:11 AM Ordering Location: [facility] - Received: 05/09/2024 01:30 PM Pathology Lab Pathologist: Shona Maloney MD Specimen: Lymph Node 3:24 PM [facility] Final Diagnosis Lymph node, right groin, flow cytometric immunophenotypic analysis: - CD5-positive monoclonal B-cell population (79.4% of total events) - See interpretation 3:24 PM [facility] Flow Cytometry Interpretation Viability: 60% B-cells: 79.4% of total events are monoclonal B-cells that express CD5, CD19, CD20 (dim), CD23 (dim), and dim surface kappa light chains. T-cells: no immunophenotypic aberrancy detected CD4:CD8 ratio 2.8:1 A cytospin prepared from the flow cytometry specimen has been reviewed for construction quality control manager purposes. 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 Correlation with the concurrent biopsy specimen is required for further classification. 3:24 PM [facility] Flow Cytometry Results Differential Result Comment Flow Cell Count /uL 8,000 Total Viability % 60.0 Lymphocytes % 98 Dim CD45 Region % 2 Monocytes % 0 Granulocytes % 0 3:24 PM [facility] Reason for test Generalized enlarged lymph nodes 785.6 5 3:24 PM [facility] Client Specimen ID # [id number] 3:24 PM [facility] Number of markers 16 were performed. A-2 Flow CD10 A-4 Flow CD20 A-5 Flow CD23 A-10 Flow CD2 A-11 Flow CD3 A-12 Flow CD4 A-16 Flow CD1a A-3 Flow CD19 A-6 Flow CD34 A-7 Flow CD45 A-13 Flow CD5 A-14 Flow CD7 A-15 Flow CD8 A-17 Flow CD30 A-8 [employer]+CD19+ A-9 Lambda+CD19+ 3:24 PM [facility] Pathologist Location at [facility] 3:24 PM [facility] Disclaimer Test performed at [facility], [address] [place] [address], [facility]. *The established laboratory minimum viability is 70%. [...] qualified to perform high complexity clinical testing. 3:24 PM [facility] Embedded Images 3:24 PM [facility] Pathology/Cytolo gy ENTIRE LYMPH NODE / Unknown 05/09/2024 9:11 AM REPAIR SERVICER 05/09/2024 1:30 PM REPAIR SERVICER Levar Bermudez MD LAB - PATHOLOGY/CYTO LOGY ORDERABLES [facility] [address] [place] [address] * HIV-1 HIV-2 ANTIBODY + HIV P24 AG PANEL (02/28/2021 12:18 PM REPAIR SERVICER) HIV Antigen/Antibod y 1 & 2 Non-reacti ve Non-react jim 02/28/2021 2:48 PM REPAIR SERVICER [facility] Comment:No Laboratory eviden ce of HIV infection. Blood BLOOD SPECIMEN / Unknown Lab Venipuncture / Unknown 02/28/2021 12:18 PM REPAIR SERVICER 02/28/2021 12:54 PM REPAIR SERVICER Irina Rodriguez MD LAB - CHEMISTRY ORDERABLES [address] [address], [facility] [phone] * (ABNORMAL) HEPATITIS C ANTIBODY (02/28/2021 12:18 PM REPAIR SERVICER) Pathologist [facility] Hepatitis C Antibody Reactive( A) Non-react jim 02/28/2021 2:52 PM REPAIR SERVICER [facility] Comment:Hepatitis C Antibody screen is consistent with past or current infection with Hepatitis C Virus. Nucleic Acid Test (GRACE) for Hepatitis C Viral RNA should be performed for initial HCV workup, and for differentiating active/chronic infection from resolved infection. Blood BLOOD SPECIMEN / Unknown Lab Venipuncture / Unknown 02/28/2021 12:18 PM REPAIR SERVICER 02/28/2021 12:54 PM REPAIR SERVICER Irina Rodriguez MD LAB - CHEMISTRY ORDERABLES [address] [address], [facility] [phone] from Last 3 Months or Most Recently Relevant to Health Maintenance LYNDSAY NEWELL Personal/Famil y 1980 [address] [place] [address]
--- OUTSIDE RECORDS SUMMARY | 2024-07-01 00:25 | XMS_ITS | Encounter Summary ---
Author Organization [facility] Address [address] [place] [address] Care Team Providers Care Mixed Crop And Livestock Farmer Name Role Phone Unavailable Primary Care Provider Unavailabl e Encounter Details Date Type Department Care Team (Late st Contact Info) Description 05/12/2024 Lab Requisition [facility] - Pathology Lab [address] [place] [id number] Levar Bermudez MD [address] [address] Illness, unspecified Social History Tobacco Use Types Packs/Day Years [...] Comments PATHOLOGY TISSUE Routine 05/09/2024 9:11 AM SALESPERSON [employer] Illness, unspecified documented in this encounter Results * PATHOLOGY TISSUE (05/09/2024 9:11 AM SALESPERSON [employer]OR[employer]) Case Report Surgical Pathology Report Case: [id number] Authorizing Provider: Levar Bermudez MD Collected: 05/09/2024 09:11 AM Ordering Location: [facility] - Received: 05/12/2024 11:59 AM Pathology Lab Pathologist: Sudha Munoz MD Specimen: Lymph Node Biopsy 05/13/2024 5:48 PM SALESPERSON [employer]Y TRAINS [employer] ACCESSORIES [facility] Final Diagnosis Lymph node, right inguinal, excision: - 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 Flow cytometry corroborates the morphologic impression ([id number]). 05/13/2024 5:48 PM [facility] Clinical History Lymphadenopathy noted bilateral neck, chest, and inguinal regions 05/13/2024 5:48 PM [facility] Gross Description [facility] gross description: Received fresh labeled the patient's identification and right groin lymph node is an ovoid brown-black to brody-pink lymph node measuring 3.5 x 2.2 x 1.5 cm. The cut surfaces brody-pink to brown blackish and fish fleshy. Touch preps are performed. Quantitative Strategy Analyst sections are submitted in RPMI for flow cytometry and the remaining specimen is entirely submitted in cassettes A1 through A3. 05/13/2024 5:48 PM [facility] Materials Received Received are 5 slide(s) and 3 block(s) labeled [id number] along with a copy of the outside pathology report. [place] [address]. All original materials are returned to the referring institution, along with a copy of our final report. 05/13/2024 5:48 PM [facility] Pathologist Location at [facility] 05/13/2024 5:48 PM [facility] Disclaimer The performance characteristics of all immunohistochemical and indirect immunofluorescence stains (if any) cited in this report were determined by the Histopathology Laboratory of [facility]. Some of these tests were developed by [...] the attending (teaching) pathologist. 05/13/2024 5:48 PM [facility] Embedded Images 05/13/2024 5:48 PM [facility] Pathology/Cytolo gy BIOPSY OF LYMPH NODE / Unknown 05/09/2024 9:11 AM SALESPERSON [employer]INS [employer]ORIES 05/12/2024 11:59 AM SALESPERSON [employer] TRAINS [employer] ACCESSORIES Levar Bermudez MD LAB - PATHOLOGY/CYTO LOGY ORDERABLES [facility] [address] [place], [place] [id number] [place] [address] documented in this encounter Visit Diagnoses Diagnosis Illness, unspecified documented in this encounter
--- OUTSIDE RECORDS SUMMARY | 2024-07-01 07:36 | XMS_ITS | Encounter Summary ---
Author Organization [facility] Address [address] [facility] [place] [address] Care Team Providers Care Lunchroom Monitor Name Role Phone Unavailable Primary Care Provider Unavailabl e Encounter Details Date Type Department Care Team (Late st Contact Info) Description 05/09/2024 Lab Requisition [facility] - Pathology Lab [address] [place] [address] Levar Bermudez MD [address] [address] Generalized enlarged lymph nodes Social [...] CYTOMETRY TISSUE PANEL Routine 05/09/2024 9:11 AM ARTIFICIAL TEETH INSPECTOR Generalized enlarged lymph nodes documented in this encounter Results * FLOW CYTOMETRY TISSUE PANEL (05/09/2024 9:11 AM ARTIFICIAL TEETH INSPECTOR) Case Report Flow Cytometry Case: [id number] Authorizing Provider: Levar Bermudez MD Collected: 05/09/2024 09:11 AM Ordering Location: [facility] - Received: 05/09/2024 01:30 PM Pathology Lab Pathologist: Shona Maloney MD Specimen: Lymph Node 3:24 PM ARTIFICIAL TEETH INSPECTOR [facility] Final Diagnosis Lymph node, right groin, flow cytometric immunophenotypic analysis: - CD5-positive monoclonal B-cell population (79.4% of total events) - See interpretation 5 3:24 PM [facility] Flow Cytometry Interpretation Viability: 60% B-cells: 79.4% of total events are monoclonal B-cells that express CD5, CD19, CD20 (dim), CD23 (dim), and dim surface kappa light chains. T-cells: no immunophenotypic aberrancy detected CD4:CD8 ratio 2.8:1 A cytospin prepared from the flow cytometry specimen has been reviewed for research quality assurance specialist purposes. 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 Correlation with the concurrent biopsy specimen is required for further classification. 5 3:24 PM [facility] Flow Cytometry Results Differential Result Comment Flow Cell Count /uL 8,000 Total Viability % 60.0 Lymphocytes % 98 Dim CD45 Region % 2 Monocytes % 0 Granulocytes % 0 5 3:24 PM [facility] Reason for test Generalized enlarged lymph nodes 785.6 5 3:24 PM [facility] Client Specimen ID # [id number] 3:24 PM [facility] Number of markers 16 were performed. A-2 Flow CD10 A-4 Flow CD20 A-5 Flow CD23 A-10 Flow CD2 A-11 Flow CD3 A-12 Flow CD4 A-16 Flow CD1a A-3 Flow CD19 A-6 Flow CD34 A-7 Flow CD45 A-13 Flow CD5 A-14 Flow CD7 A-15 Flow CD8 A-17 Flow CD30 A-8 [place]+CD19+ A-9 Lambda+CD19+ 5 3:24 PM [facility] Pathologist Location at [facility] 5 3:24 PM [facility] Disclaimer Test performed at [facility], [address] [place] [address], [address]. *The established laboratory minimum viability is 70%. [...] high complexity clinical testing. 5 3:24 PM ARTIFICIAL TEETH INSPECTOR [facility] Embedded Images 5 3:24 PM ARTIFICIAL TEETH INSPECTOR [facility] Pathology/Cytolo gy ENTIRE LYMPH NODE / Unknown 05/09/2024 9:11 AM ARTIFICIAL TEETH INSPECTOR 05/09/2024 1:30 PM ARTIFICIAL TEETH INSPECTOR Levar Bermudez MD LAB - PATHOLOGY/CYTO LOGY ORDERABLES Performing Organization Address City/State/[facility] Co de Phone Number [facility] [address] [phone] documented in this encounter Visit Diagnoses Diagnosis Generalized enlarged lymph nodes Enlargement of lymph nodes documented in this encounter
--- OUTSIDE RECORDS SUMMARY | 2024-07-01 07:36 | XMS_ITS | Clinical Summary ---
Author Organization [facility] Address [address] [place] [address] Care Team Providers Care Saw Operator Name Role Phone Unavailable Primary Care Provider Unavailabl e Source Comments [facility],non-owned Affiliates and Associated Physician Practices is amultiple site organization consisting of ambulatory clinics and hospital sitesin [place], [place], [place] and [place]. This disclosure is being madepursuant to the Care Everywhere program and may not contain all information available regarding this patient. Last updated 17.[facility] [employer] Allergies No known active allergies Medications * [...] Physician Group - Pathology Lab [address] [place] [address] Levar Bermudez MD Illness, unspecified 05/09/2024 Lab Requisition [facility] - Pathology Lab [address] [place] [address] Levar Bermudez MD Generalized enlarged lymph nodes [...] 101.2 kg (223 lb) 02/28/2021 10:42 AM ALUMINUM SIDING APPLICATOR Height 180.3 cm (5' 11 ) 02/28/2021 10:42 AM ALUMINUM SIDING APPLICATOR Body Mass Index 31.1 02/28/2021 10:42 AM ALUMINUM SIDING APPLICATOR Plan of Treatment Health Maintenance Due Date [...] Comments PATHOLOGY TISSUE Routine 05/09/2024 9:11 AM ALUMINUM SIDING APPLICATOR Illness, unspecified FLOW CYTOMETRY TISSUE PANEL Routine 05/09/2024 9:11 AM ALUMINUM SIDING APPLICATOR Generalized enlarged lymph nodes HEPATITIS C ANTIBODY Routine 02/28/2021 12:18 PM ALUMINUM SIDING APPLICATOR Arthralgia, unspecified joint High risk medication use Long-term use of immunosuppressant medication Encounter for therapeutic drug level monitoring Vasculitis HIV-1 HIV-2 ANTIBODY + HIV 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 AG PANEL Routine 02/28/2021 12:18 PM ALUMINUM SIDING APPLICATOR Arthralgia, unspecified joint High risk medications (not anticoagulants) long-term use Long-term use of immunosuppressant medication Encounter for therapeutic drug level monitoring Vasculitis from Last 3 Months or Most Recently Relevant to Health Maintenance Results * PATHOLOGY TISSUE (05/09/2024 9:11 AM ALUMINUM SIDING APPLICATOR) Case Report Surgical Pathology Report Case: [id number] Authorizing Provider: Levar Bermudez MD Collected: 05/09/2024 09:11 AM Ordering Location: [facility] - Received: 05/12/2024 11:59 AM Pathology Lab Pathologist: Sudha Munoz MD Specimen: Lymph Node Biopsy 05/13/2024 5:48 PM [facility] Final Diagnosis Lymph node, right inguinal, excision: - 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 Flow cytometry corroborates the morphologic impression ([id number]). 05/13/2024 5:48 PM [facility] Clinical History Lymphadenopathy noted bilateral neck, chest, and inguinal regions 05/13/2024 5:48 PM [facility] Gross Description [facility] gross description: Received fresh labeled the patient's identification and right groin lymph node is an ovoid brown-black to brody-pink lymph node measuring 3.5 x 2.2 x 1.5 cm. The cut surfaces brody-pink to brown blackish and fish fleshy. Touch preps are performed. Staff Physician sections are submitted in RPMI for flow cytometry and the remaining specimen is entirely submitted in cassettes A1 through A3. 05/13/2024 5:48 PM [facility] Materials Received Received are 5 slide(s) and 3 block(s) labeled [id number] along with a copy of the outside pathology report[place] [address]. All original materials are returned to the referring institution, along with a copy of our final report. 05/13/2024 5:48 PM [facility] Pathologist Location at [facility] 05/13/2024 5:48 PM [facility] Disclaimer The performance characteristics of all immunohistochemical and indirect immunofluorescence stains (if any) cited in this report were determined by the Histopathology Laboratory of [facility]. Some of these tests were developed by [...] the attending (teaching) pathologist. 05/13/2024 5:48 PM [facility] Embedded Images 05/13/2024 5:48 PM [facility] Pathology/Cytolo gy BIOPSY OF LYMPH NODE / Unknown 05/09/2024 9:11 AM ALUMINUM SIDING APPLICATOR 05/12/2024 11:59 AM ALUMINUM SIDING APPLICATOR Levar Bermudez MD LAB - PATHOLOGY/CYTO LOGY ORDERABLES Performing Organization Address City/State/[facility] Co de Phone Number [facility] [address] [phone] * FLOW CYTOMETRY TISSUE PANEL (05/09/2024 9:11 AM ALUMINUM SIDING APPLICATOR) Case Report Flow Cytometry Case: [id number] Authorizing Provider: Levar Bermudez MD Collected: 05/09/2024 09:11 AM Ordering Location: [facility] - Received: 05/09/2024 01:30 PM Pathology Lab Pathologist: Shona Maloney MD Specimen: Lymph Node 3:24 PM [facility] Final Diagnosis Lymph node, right groin, flow cytometric immunophenotypic analysis: - CD5-positive monoclonal B-cell population (79.4% of total events) - See interpretation 3:24 PM [facility] Flow Cytometry Interpretation Viability: 60% B-cells: 79.4% of total events are monoclonal B-cells that express CD5, CD19, CD20 (dim), CD23 (dim), and dim surface kappa light chains. T-cells: no immunophenotypic aberrancy detected CD4:CD8 ratio 2.8:1 A cytospin prepared from the flow cytometry specimen has been reviewed for vice president quality improvement purposes. 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 Correlation with the concurrent biopsy specimen is required for further classification. 3:24 PM [facility] Flow Cytometry Results Differential Result Comment Flow Cell Count /uL 8,000 Total Viability % 60.0 Lymphocytes % 98 Dim CD45 Region % 2 Monocytes % 0 Granulocytes % 0 3:24 PM [facility] Reason for test Generalized enlarged lymph nodes 785.6 5 3:24 PM [facility] Client Specimen ID # [id number] 3:24 PM [facility] Number of markers 16 were performed. A-2 Flow CD10 A-4 Flow CD20 A-5 Flow CD23 A-10 Flow CD2 A-11 Flow CD3 A-12 Flow CD4 A-16 Flow CD1a A-3 Flow CD19 A-6 Flow CD34 A-7 Flow CD45 A-13 Flow CD5 A-14 Flow CD7 A-15 Flow CD8 A-17 Flow CD30 A-8 Dasher+CD19+ A-9 Lambda+CD19+ 3:24 PM [facility] Pathologist Location at [facility] 3:24 PM [facility] Disclaimer Test performed at [facility], [address] [address], [facility]. *The established laboratory minimum viability is 70%. [...] perform high complexity clinical testing. 3:24 PM [facility] Embedded Images 3:24 PM [facility] Pathology/Cytolo gy ENTIRE LYMPH NODE / Unknown 05/09/2024 9:11 AM ALUMINUM SIDING APPLICATOR 05/09/2024 1:30 PM ALUMINUM SIDING APPLICATOR Levar Bermudez MD LAB - PATHOLOGY/CYTO LOGY ORDERABLES [facility] [address] [place] [address] * HIV-1 HIV-2 ANTIBODY + HIV P24 AG PANEL (02/28/2021 12:18 PM ALUMINUM SIDING APPLICATOR) HIV Antigen/Antibod y 1 & 2 Non-reacti ve Non-react jim 02/28/2021 2:48 PM ALUMINUM SIDING APPLICATOR [facility] Comment:No Laboratory eviden ce of HIV infection. Blood BLOOD SPECIMEN / Unknown Lab Venipuncture / Unknown 02/28/2021 12:18 PM ALUMINUM SIDING APPLICATOR 02/28/2021 12:54 PM ALUMINUM SIDING APPLICATOR Irina Rodriguez MD LAB - CHEMISTRY ORDERABLES [address] [address], [facility] [phone] * (ABNORMAL) HEPATITIS C ANTIBODY (02/28/2021 12:18 PM ALUMINUM SIDING APPLICATOR) Pathologist [facility] Hepatitis C Antibody Reactive( A) Non-react jim 02/28/2021 2:52 PM ALUMINUM SIDING APPLICATOR [facility] Comment:Hepatitis C Antibody screen is consistent with past or current infection with Hepatitis C Virus. Nucleic Acid Test (GRACE) for Hepatitis C Viral RNA should be performed for initial HCV workup, and for differentiating active/chronic infection from resolved infection. Blood BLOOD SPECIMEN / Unknown Lab Venipuncture / Unknown 02/28/2021 12:18 PM ALUMINUM SIDING APPLICATOR 02/28/2021 12:54 PM ALUMINUM SIDING APPLICATOR Irina Rodriguez MD LAB - CHEMISTRY ORDERABLES [address] [address], [facility] [phone] from Last 3 Months or Most Recently Relevant to Health Maintenance LYNDSAY NEWELL Personal/Famil y 1980 [address] [place] [address]
--- OUTSIDE RECORDS SUMMARY | 2024-07-01 07:36 | XMS_ITS | Encounter Summary ---
Author Organization [facility] Address [address] [place] [address] Care Team Providers Care Yield Improvement Engineer Name Role Phone Unavailable Primary Care Provider Unavailabl e Encounter Details Date Type Department Care Team (Late st Contact Info) Description 05/12/2024 Lab Requisition [facility] - [facility]ology Lab [address] [place] [id number] Levar Bermudez MD [phone] [address] Illness, unspecified Social History Tobacco [...] Comments PATHOLOGY TISSUE Routine 05/09/2024 9:11 AM [employer] Illness, unspecified documented in this encounter Results * PATHOLOGY TISSUE (05/09/2024 9:11 AM [employer]) Case Report Surgical Pathology Report Case: [id number] Authorizing Provider: Levar Bermudez MD Collected: 05/09/2024 09:11 AM Ordering Location: [facility] - Received: 05/12/2024 11:59 AM Pathology Lab Pathologist: Sudha Munoz MD Specimen: Lymph Node Biopsy 05/13/2024 5:48 PM [employer] [facility] Final Diagnosis Lymph node, right inguinal, excision: - 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 Flow cytometry corroborates the morphologic impression ([id number]). 05/13/2024 5:48 PM [facility] Clinical History Lymphadenopathy noted bilateral neck, chest, and inguinal regions 05/13/2024 5:48 PM [facility] Gross Description [facility] gross description: Received fresh labeled the patient's identification and right groin lymph node is an ovoid brown-black to brody-pink lymph node measuring 3.5 x 2.2 x 1.5 cm. The cut surfaces brody-pink to brown blackish and fish fleshy. Touch preps are performed. Social Worker Palliative Care sections are submitted in RPMI for flow cytometry and the remaining specimen is entirely submitted in cassettes A1 through A3. 05/13/2024 5:48 PM [facility] Materials Received Received are 5 slide(s) and 3 block(s) labeled [id number] along with a copy of the outside pathology report. [place] [address]. All original materials are returned to the referring institution, along with a copy of our final report. 05/13/2024 5:48 PM [facility] Pathologist Location at [facility] 05/13/2024 5:48 PM [facility] Disclaimer The performance characteristics of all immunohistochemical and indirect immunofluorescence stains (if any) cited in this report were determined by the Histopathology Laboratory of [facility]. Some of these tests [...] the attending (teaching) pathologist. 05/13/2024 5:48 PM [facility] Embedded Images 05/13/2024 5:48 PM [facility] Pathology/Cytolo gy BIOPSY OF LYMPH NODE / Unknown 05/09/2024 9:11 AM [employer] 05/12/2024 11:59 AM [employer] Levar Bermudez MD LAB - PATHOLOGY/CYTO LOGY ORDERABLES [facility] [address] [place], [place] [id number] [place] [address] documented in this encounter Visit Diagnoses Diagnosis Illness, unspecified documented in this encounter
--- OUTSIDE RECORDS SUMMARY | 2024-07-01 07:36 | XMS_ITS | Clinical Summary ---
Author Organization [facility] Address [facility] [place] [address] Care Team Providers Care Rigging Worker Name Role Phone Laura Alves MD, [facility] Primary Care Provider [phone] Allergies No known active allergies Medications No known medications Active Problems No known active problems Encounters Date Type Department Care Team Description 06/09/2024 2:41 PM CDT - 06/09/2024 11:59 PM CDT Hospital Encounter [facility] [address] [place] [address] Jen Mcneil MD Discharge Disposition: Home or Self Care (Routine Discharge) 06/09/2024 Orders Only [facility] [address] [place] [address] Jen Mcneil MD 04/07/2024 2:15 PM CASH ACCOUNTANT - 04/07/2024 11:59 PM CASH ACCOUNTANT Hospital Encounter [facility] [address] [place] [address] Jen Mcneil MD Discharge Disposition: Home or Self Care (Routine Discharge) 04/07/2024 Orders Only [facility] [address] [place] [address] Jen Mcneil MD from Last 3 Months [...] 06/09/2024 12:50 PM CDT Small lymphocytic lymphoma ([facility] HHS/HCC) IMMUNOFIXATION Routine 06/09/2024 12:50 PM CDT Small lymphocytic lymphoma ([facility] HHS/HCC) PROTEIN, ELECTROPHORESIS Routine 06/09/2024 12:50 PM CDT Small lymphocytic lymphoma ([facility] HHS/HCC) LDH, LACTATE DEHYDROGENASE Routine 06/09/2024 12:50 [...] CBC W/DIFF AUTOMATED Routine 04/07/2024 11:45 AM CASH ACCOUNTANT Adenopathy COMPREHENSIVE METABOLIC PANEL Routine 04/07/2024 11:45 AM CASH ACCOUNTANT Adenopathy LDH, LACTATE DEHYDROGENASE Routine 04/07/2024 11:45 AM CASH ACCOUNTANT Adenopathy HIV 1 ANTIGEN(S), WITH HIV-1 AND HIV-2 ANTIBODIES Routine 04/07/2024 11:45 AM CASH ACCOUNTANT Adenopathy SED RATE, ERYTHROCYTE (ESR) Routine 04/07/2024 11:45 AM CASH ACCOUNTANT Adenopathy URIC ACID BLOOD Routine 04/07/2024 11:45 AM CASH ACCOUNTANT Adenopathy from Last 3 Months Results * HCV RNA,PCR QUANT. (06/09/2024 2:44 PM CDT) HEPATITIS C RNA PCR QNT <15 IU/mL 06/13/2024 6:17 AM CDT Going [facility] Comment: HCV RNA Not Detected HEP C RNA PCR QNT LOG <1.18 log IU/mL 06/13/2024 6:17 AM CDT Going [facility] Comment: HCV RNA Not Detected Reference Range: Not Detected IU/mL Not Detected Log IU/mL For additional information please refer to [email or web address] (This link is being provided for informational/ educational purposes only.) Test Performed by [employer], [employer] [facility], [address] [place] [address] Steve Machado M.D., Ph.D., Director of Laboratories , [facility] [id number] 06/09/2024 2:44 PM CDT us Jen Mcneil MD LABORATORY Final Result Going [place] [id number] [place], [place] , * (ABNORMAL) COMPREHENSIVE METABOLIC PANEL (06/09/2024 12:50 PM CDT) Only the most recent of2 resultswithin the time period is included. [facility] GLUCOSE 96 70 - 99 MG/DL 06/09/2024 3:24 PM CDT [facility] BUN 9 7 - 18 MG/DL 06/09/2024 3:24 PM CDT [facility] CREATININE S/P/B 1.17 0.50 - 1.20 MG/DL 06/09/2024 3:24 PM CDT [facility] SODIUM S/P/B 142 136 - 145 MMOL/L 06/09/2024 3:24 PM CDT [facility] POTASSIUM S/P/B 4.4 3.5 - 5.1 MMOL/L 06/09/2024 3:24 PM CDT [facility] CHLORIDE S/P/B 104 100 - 108 MMOL/L 06/09/2024 3:24 PM CDT [facility] CO2 30.9 21.0 - 32.0 MMOL/L 06/09/2024 3:24 PM CDT [facility] CALCIUM S/P/B 9.0 8.5 - 10.1 MG/DL 06/09/2024 3:24 PM CDT [facility] BILIRUBIN TOTAL S/P/B 0.7 0.2 - 1.2 MG/DL 06/09/2024 3:24 PM CDT [facility] Comment: THIS ASSAY IS NOT RECOMMENDED FOR PATIENTS UNDERGOING TREATMENT WITH ELTROMBOPAG DUE TO THE POTENTIAL FOR FALSELY ELEVATED RESULTS. TOTAL PROTEIN S/P/B 7.4 6.4 - 8.2 G/DL 06/09/2024 3:24 PM CDT [facility] ALBUMIN S/P/B 3.9 3.4 - 5.0 G/DL 06/09/2024 3:24 PM CDT [facility] AST 23 15 - 37 U/L 06/09/2024 3:24 PM CDT [facility] ALT 23 16 - 60 U/L 06/09/2024 3:24 PM CDT [facility] ALKALINE PHOSPHATASE S/P/B 84 50 - 136 U/L 06/09/2024 3:24 PM CDT [facility] ANION GAP 7.1 5.0 - 15.0 MMOL/L 06/09/2024 3:24 PM CDT [facility] BUN CREATININE RATIO 7.7 6 - 26 06/09/2024 3:24 PM CDT [facility] A/G RATIO 1.1 1.0 - 2.5 RATIO 06/09/2024 3:24 PM CDT [facility] GFR ESTIMATE 80(L) >90 ML/MIN/1.7 3 M2 06/09/2024 3:24 PM CDT [facility] Comment: NOTE: eGFR is not calculated for patients <18 years of age. This is an estimated GFR calculation using the new CKD EPI creatinine equation without race and so does not require a correction factor for race. This estimated GFR should not be used for calculating drug doses. 06/09/2024 12:5 0 PM CDT Jen Mcneil MD LABORATORY Final Result Performing Organization Address City/[facility]/ZIP Co de Phone Number [facility] [address] [place] [address], [place] * LDH, LACTATE DEHYDROGENASE (06/09/2024 12:50 PM CDT) Only the most recent of2 resultswithin the time period is included. Pathologist [facility] LDH 190 87 - 241 UNITS/L 06/09/2024 7:28 PM CDT [facility] 06/09/2024 12:5 0 PM CDT Jen Mcneil MD LABORATORY Final Result Performing Organization Address [facility] de Phone Number [facility] [address] [place] [address], [place] [phone] * IMMUNOFIXATION, SERUM (06/09/2024 12:50 PM CDT) Pathologist [facility] IMMUNOFIXATION SERUM SEE PATHOLOGIST'S INTERPRETATION 06/11/2024 1:52 PM CDT [facility] IMMUNOFIX (SERUM) INTERPRETATION THIS SERUM IMMUNOTYPING WAS INTERPRETED BY 06/12/2024 9:37 AM CDT [facility] Comment: DR JEROME CHURCH MD MONOCLONAL PROTEIN NOT IDENTIFIED 06/09/2024 12:5 0 PM CDT Jen Mcneil MD LABORATORY Final Result Performing Organization Address City/[facility]/ZIP Co de Phone Number [facility] [address] [place] [address], [place] [phone] * (ABNORMAL) HEPATITIS C ANTIBODY (06/09/2024 12:50 PM CDT) HEPATITIS C AB REACTIVE(A ) NON-REACTI VE 06/09/2024 8:36 PM CDT [facility] Comment: NOTE: A POSITIVE RESULT WILL BE CONFIRMED BY THE HEP C RNA, QUANT, PCR TEST. 06/09/2024 12:5 0 PM CDT us Jen Mcneil MD LABORATORY Final Result [facility] [address] [place] [address], [place] [phone] * HEPATITIS B SURFACE AG, EIA (06/09/2024 12:50 PM CDT) HEPATITIS B SURFACE AG NON-REACTI VE NON-REACTI VE 06/09/2024 8:04 PM CDT [facility] 06/09/2024 12:5 0 PM CDT us Jen Mcneil MD LABORATORY Final Result Performing Organization Address City/[facility]/ZIP Co de Phone Number [facility] [address] [place] [address], [place] [phone] * HEPATITIS B CORE ANTIBODY (06/09/2024 12:50 PM CDT) HEP B CORE TOTAL AB NON-REACTI VE NON-REACTI VE 06/09/2024 8:36 PM CDT [facility] 06/09/2024 12:5 0 PM CDT us Jen Mcneil MD LABORATORY Final Result [facility] [address] [place] [address], [place] [phone] * CBC W/DIFF AUTOMATED (06/09/2024 12:50 PM CDT) Only the most recent of2 resultswithin the time period is included. [facility] WBC 4.70 4.50 - 11.00 x10'3/uL 06/09/2024 2:54 PM CDT [facility] RBC 5.31 4.50 - 5.90 x10'6/uL 06/09/2024 2:54 PM CDT [facility] HGB 15.4 14.0 - 18.0 G/DL 06/09/2024 2:54 PM CDT [facility] HCT 46.4 43.0 - 54.0 % 06/09/2024 2:54 PM CDT [facility] MCV 87.4 80.0 - 100.0 FL 06/09/2024 2:54 PM CDT [facility] MCH 29.0 26.0 - 34.0 PG 06/09/2024 2:54 PM CDT [facility] MCHC 33.2 31.0 - 37.0 G/DL 06/09/2024 2:54 PM CDT [facility] RDW 13.4 11.6 - 14.8 % 06/09/2024 2:54 PM CDT [facility] PLT 234 130 - 400 x10'3/uL 06/09/2024 2:54 PM CDT [facility] MPV 10.3 7.0 - 12.0 FL 06/09/2024 2:54 PM CDT [facility] CBC COMMENT AUTOMATED RBC MORPHOLOGY AND PLATELET EVALUATION NORMAL 06/09/2024 2:54 PM CDT [facility] NEUTROPHILS % 57.5 40.0 - 74.0 % 06/09/2024 2:54 PM CDT [facility] LYMPHOCYTES % 33.6 14.0 - 46.0 % 06/09/2024 2:54 PM CDT [facility] MONOCYTES % 7.2 4.0 - 13.0 % 06/09/2024 2:54 PM CDT [facility] EOSINOPHILS 1.1 0.0 - 7.0 % 06/09/2024 2:54 PM CDT [facility] BASOPHILS 0.4 0.0 - 3.0 % 06/09/2024 2:54 PM CDT [facility] IMMATURE GRANS % 0.2 0.0 - 0.43 % 06/09/2024 2:54 PM CDT [facility] NRBC % 0.0 % 06/09/2024 2:54 PM CDT [facility] ABS. NEUTROPHILS TOTAL 2.70 1.69 - 7.81 x10'3/uL 06/09/2024 2:54 PM CDT [facility] ABS. LYMPHOCYTES 1.58 0.21 - 5.42 x10'3/uL 06/09/2024 2:54 PM CDT [facility] ABS. MONOCYTES 0.34 0.04 - 1.37 x10'3/uL 06/09/2024 2:54 PM CDT [facility] ABS. EOSINOPHILS 0.05 0.00 - 0.68 x10'3/uL 06/09/2024 2:54 PM CDT [facility] ABS. BASOPHILS 0.02 0.00 - 0.08 x10'3/uL 06/09/2024 2:54 PM CDT [facility] ABS. IMMATURE GRANULOCYTES 0.01 0.00 - 0.06 x10'3/uL 06/09/2024 2:54 PM CDT [facility] ABS. NUCLEATED RBC'S 0.00 0.00 - 0.01 x10'3/uL 06/09/2024 2:54 PM CDT [facility] 06/09/2024 12:5 0 PM CDT us Bachir Mcneil MD LABORATORY Final Result Performing Organization Address City/[facility]/ZIP Co de Phone Number [facility] [place] [facility] [address] [place] [address], [place] * PROTEIN, ELECTROPHORESIS (06/09/2024 12:50 PM CDT) TOTAL PROTEIN S/P/B 7.5 6.0 - 8.3 G/DL 06/11/2024 1:50 PM CDT [facility] ALBUMIN S/P/B 4.5 3.4 - 4.9 G/DL 06/11/2024 1:47 PM CDT [facility] [id number] S/P/B 0.3 0.2 - 0.4 G/DL 06/11/2024 1:47 PM CDT [facility] [id number] S/P/B 0.6 0.4 - 1.0 G/DL 06/11/2024 1:47 PM CDT [facility] BETA GLOBULIN S/P/B 0.7 0.5 - 1.2 G/DL 06/11/2024 1:47 PM CDT [facility] GAMMA GLOBULIN S/P/B 1.5 0.6 - 1.6 G/DL 06/11/2024 1:47 PM CDT [facility] ELECTROPHORESIS INTERPRETATION THIS SERUM PEP WAS INTERPRETED BY 06/12/2024 9:37 AM CDT [facility] Comment: DR JEROME CHURCH MD THE TOTAL SERUM PROTEIN IS NORMAL. ELECTROPHORESIS IDENTIFIES NO QUANTITATIVE ABNORMALITIES WITHIN THE PROTEIN FRACTIONS. MONOCLONAL PROTEINS ARE NOT DETECTED. 06/09/2024 12:5 0 PM CDT Jen Mcneil MD LABORATORY Final Result [facility] [address] [place] [address], [id number] * (ABNORMAL) IMMUNOGLOBULINS IGA IGG IGM (06/09/2024 12:50 PM CDT) Pathologist [facility] IGA 131 47 - 310 mg/dL 06/19/2024 9:27 AM CDT [facility] [facility] IGG 1,724(H) 600 - 1,640 mg/dL 06/19/2024 9:27 AM CDT [facility] IGM 65 50 - 300 mg/dL 06/19/2024 9:27 AM CDT [facility] Comment: Test Performed by [employer], [employer] [facility], [address] [place], [place] Steve Machado M.D., Ph.D., Director of Laboratories , [facility] [id number] 06/09/2024 12:5 0 PM CDT Jen Mcneil MD LABORATORY Final Result Going [place] [id number] [place], [place] , [place] [phone] * HIV 1 ANTIGEN(S), WITH HIV-1 AND HIV-2 ANTIBODIES (04/07/2024 11:45 AM CASH ACCOUNTANT) [facility] HIV 1/2 AB+ HIV1 P24 AG NON-REACTI VE NON-REACTI VE 04/07/2024 8:36 PM CASH ACCOUNTANT [facility] 04/07/2024 11:4 5 AM CASH ACCOUNTANT us Jen Mcneil MD LABORATORY Final Result [facility] [address] [place] [address], [place] [phone] * SED RATE, ERYTHROCYTE (ESR) (04/07/2024 11:45 AM CASH ACCOUNTANT) [facility] ESR 14 <15 MM/HR 04/07/2024 7:48 PM CASH ACCOUNTANT [facility] Comment:Testing performed on Olga iSAYALA. 04/07/2024 11:4 5 AM CASH ACCOUNTANT us Jen Mcneil MD LABORATORY Final Result [facility] [address] [place] [address], [place] [phone] * URIC ACID BLOOD (04/07/2024 11:45 AM CASH ACCOUNTANT) URIC ACID 4.8 3.5 - 7.2 MG/DL 04/07/2024 8:39 PM CASH ACCOUNTANT [facility] 04/07/2024 11:4 5 AM CASH ACCOUNTANT us Jen Mcneil MD LABORATORY Final Result Performing Organization Address City/[facility] de Phone Number [facility] [address] [place] [address], [place] [phone] from Last 3 Months Insurance CARE Advance Directives Documents on File Type Date Recorded Patient [employer] Expl anation Advance Directives and Living Will 11/21/2016 12:00 AM [employer] Care Teams Rigging Worker Relationship Specialty Start Date End Date Ran Sanchez MD [facility] [address] [place] [id number] PCP - General INTERNAL MEDICINE 09/28/21
[2024-07-01 07:57] LABS: Basophils Percent Auto 0.7 % (0.2-1.2); Eosinophils Absolute Auto 0.1 K/mm3 (0-0.3); Eosinophils Percent Auto 1.1 % (0-4.4); Hematocrit 47.8 % (42.0-52.0); Hemoglobin 15.4 g/dL (14.0-18.0); Immature Granulocyte Absolute 0.01 K/mm3 (0.00-0.031); Immature Granulocyte Percent A 0.2 % (0-0.5); Lymphocytes Percent Auto 42.7 % (18.3-44.2); Mean Corpuscular HGB Conc 32.2 g/dl (32-36); Mean Platelet Volume 9.5 fl (7.4-10.4); Monocytes Absolute Auto 0.4 K/mm3 (0.1-0.6); Monocytes Percent Auto 9.4 % (2.6-8.5); Neutrophils Percent Auto 45.9 % (45.5-73.1); Platelet Count Result 189 k/mm3 (150-375); Red Blood Count 5.31 M/mm3 (4.6-6.20); Red Cell Distribution Width 13.3 % (11.5-14.5); White Blood Count 4.5 K/mm3 (4.5-10.0)
[2024-07-01 08:19] VITALS: BP 136/86; PULSE 65; RESP 12; TEMP 36.5; O2SAT 98
[2024-07-01 08:30] LABS: Prothrombin Time 13.9 Seconds (11.1-14.7)
[2024-07-01 08:32] VITALS: BMI 28.4
--- NOTE | 2024-07-01 09:08 | WPDMODSED ---
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) Present Complaint: lymphadenopathy Procedure to be performed/Plan: bone marrow biopsy Allergies Allergy/AdvReac Type Severity Reaction Status Date / Time No Known Allergies Allergy Verified 07/01/24 08:33 Home Medications ?Medication ?Instructions ?Recorded ?Confirmed ?Type acetaminophen 325 mg tablet 650 mg PO BID PRN fever or pain 04/30/24 06/30/24 History albuterol sulfate 90 mcg/actuation 2 inh inhalation QID PRN shortness 04/30/24 06/30/24 History aerosol inhaler (Ventolin HFA) of breath or wheezing ibuprofen 800 mg tablet (IBU) 800 mg PO BID PRN pain 04/30/24 06/30/24 History tolnaftate 1 % topical cream 1 applic topical DAILY 04/30/24 06/30/24 History (Antifungal (tolnaftate)) gabapentin 100 mg capsule 100 mg PO BID 06/30/24 06/30/24 History Sedation/Anesthesia: No previous sedation/anesthesia problems (including family history). [facility] Past Medical History Medical History (Updated 05/20/24 @ 10:51 by Pari Moser CMA) Irritable bowel syndrome Migraine Cancer Asthma Surgical History Surgical History (Updated 05/20/24 @ 10:51 by Pari Moser CMA) H/O lymph node biopsy 05/09/24 Excisional right groin lymph node biopsy Dr. Swenson H/O hand surgery Family History Family History Father Alcoholism Mother Lymphoma Hypertension Grandparent Cerebrovascular accident Social History Social History Smoking status: Former smoker Alcohol intake: unknown Substance use: former Current Housing: Decline to Answer Concerned About Future Housing: Decline to Answer Difficulty Paying Gas/Electric Bills: Decline to Answer Difficulty Paying for Meds: Decline to Answer Currently Unemployed: Decline to Answer Education: Decline to Answer Difficulty w/ Childcare or Family Care: Decline to Answer Living arrangements: incarcerated Mod Sed Physical Exam Physical Exam Pre Procedural Exam: Normal: Appearance, Throat, Lungs, Heart Rate and Heart Rhythm Hours since solid foods: 14 Hours since liquid intake: 14 Mallampati Classification: class II Internal Medicine - PN: Obj Da Vital Signs Vital Signs: Vital Signs - 24 hr 07/01/24 08:19 Temperature 97.7 F Pulse Rate 65 Respiratory Rate 12 Blood Pressure 136/86 Pulse Oximetry 98 Oxygen Delivery Room Air Labs 07/01/24 07:52 Labs: Laboratory Results - last 24 hr 07/01/24 07:52 WBC 4.5 RBC 5.31 Hgb 15.4 Hct 47.8 MCV 90.0 MCH 29.0 MCHC 32.2 RDW 13.3 Plt Count 189 MPV 9.5 Immature Gran % (Auto) 0.2 Neut % (Auto) 45.9 Lymph % (Auto) 42.7 Carter % (Auto) 9.4 H Eos % (Auto) 1.1 Baso % (Auto) 0.7 Lymph # (Auto) 1.90 Carter # (Auto) 0.4 Eos # (Auto) 0.1 Baso # (Auto) 0.0 Abs Immat Gran (auto) 0.01 Absolute Neuts (auto) 2.0 Absolute Nucleated RBC 0.000 Nucleated RBC % 0.0 PT 13.9 INR 1.0 ASA Classification/Sedation ASA Classification/Sedation ASA Class: III Emergent: No Risks: Risks, benefits and alternatives explained and patient/family accepted plan for sedation. Patient re-evaluated immediately prior to sedation.
[2024-07-01 09:45] VITALS: BP 140/82; PULSE 58; RESP 15; O2SAT 97
[2024-07-01 10:00] VITALS: BP 140/79; PULSE 63; RESP 13; O2SAT 97
[2024-07-01 10:15] VITALS: BP 138/72; PULSE 65; RESP 14; O2SAT 97
[2024-07-01 10:27] VITALS: BP 132/76; PULSE 63; RESP 12; TEMP 36.4; O2SAT 97
[2024-07-01 10:47] VITALS: PULSE 60; RESP 14; O2SAT 98
== END 2024-07-01 11:00 | disposition home or self-care (01) ==
PROVIDERS: Referring Provider Radiology Diagnostic Radiology; Visit Provider Physician Assistant
DX: C96.9 Malignant neoplasm of lymphoid, hematopoietic and related tissue, unspecified (principal); C91.10 Chronic lymphocytic leukemia of B-cell type not having achieved remission; D75.89 Other specified diseases of blood and blood-forming organs
CPT/HCPCS: 36415; 85025; 85610; 88305; 88311; 88313; J2003; J2250; J3010; J7040

== ENCOUNTER 2024-07-03 12:22 | Outpatient (CLI) | payer OTHER, SELFPAY ==
--- NOTE | ~2024-07-03 | PE_ITS ---
EXAMINATION: PET skull to mid thigh DATE: 07/03/2024 14:10 INDICATION: Small lymphocytic lymphoma TECHNIQUE: Blood glucose level was 77 mg/dL. 9.578 mCi of 18-fluorodeoxyglucose (18-FDG) was administ ered i.v. Low dose computed tomography (CT) images were acquired from the base of the brain to the pr oximal thighs for attenuation correction and anatomic localization. Positron emission tomography (PET ) images were acquired in the same distribution beginning 54 minutes after injection. Images includin g fused PET/CT images were reconstructed in axial, coronal, and sagittal planes. Automated exposure c ontrol technique was employed. The dose-length product was 1186.15mGy-cm. COMPARISON: None FINDINGS: Head/neck: There is symmetric increased activity in the oral cavity, palatine and lingual tonsils, laryngeal mus cles and ocular muscles without CT correlate, likely physiologic. There are numerous mildly FDG avid normal sized and mildly enlarged bilateral cervical lymph nodes including clinically bilateral jugula r chains and posterior triangles as well as at the bilateral parotid glands. For reference one of the larger right posterior triangle lymph nodes measures 2.2 x 1.5 cm with maximal SUV of 4.8 and the la rgest right parotid lymph node measures 2.3 x 1.8 cm with maximal SUV of 4.3. Chest: Mild bibasilar atelectasis. 8 mm nodule at the posterior basilar right lower lobe without associated FDG uptake. Lungs are otherwise clear. No pleural effusion. Heart size is normal. No pericardial effu chris. There are additional numerous enlarged and mildly FDG avid lymph nodes at the bilateral axilla, supraclavicular regions and in the mediastinum. For reference one of the larger right axillary lymph nodes measures 3.7 x 2.0 cm with maximal SUV of 3.9 thoracic aorta is normal in caliber. Abdomen/pelvis/proximal thighs: There are numerous additional similarly enlarged and FDG avid lymph nodes in the abdomen and pelvis i ncluding or gastrohepatic, periportal and mesenteric lymph nodes as well as numerous retroperitoneal lymph nodes extending along the aorta and inferior vena cava from the thoracic hiatus through the christelle ateral iliac chains into the bilateral inguinal regions. There is a small seroma was pulsatile clips at the right groin which may relate to prior excisional biopsy. One of the larger lymph nodes at the left groin measures 3.9 x 2.8 cm with maximal SUV of 3.9. Physiologic renal accumulation and excretio n of FDG activity in the kidneys, bladder and along portions of ureters. Normal degree and heterogeno us pattern of increased uptake throughout the liver without radiologic correlate or dominant FDG avid lesion. The gallbladder, pancreas, spleen and bilateral adrenal glands are normal. Mild uptake scatt ered throughout the bowels without radiologic correlate, also likely physiologic. More appendix. Musculoskeletal: Small focus of minimal extravasated activity at the site of injection at the right antecubital fossa. No suspicious lytic, blastic or focal abnormally FDG avid bone lesions. 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 Given the relatively low activity in the enlarged lymph nodes and liver activity at the location of the biopsy, more widespread bone involvement is likely. IMPRESSION: 1. Numerous enlarged and FDG avid lymph nodes extending from the head and neck through the chest, abd omen and pelvis to the bilateral inguinal regions consistent with widespread lymphoma. 2. No discrete lytic or blastic bone lesions or focally more intense FDG uptake although bone involve ment was demonstrated at the right posterior iliac spine where there is no discrete lytic or blastic bone lesion are significantly increased activity and more widespread bone involvement is likely. 3. 8 mm right lower lobe nodule without evident FDG uptake. Would recommend obtaining a standard low- dose noncontrast chest CT for more accurate measurement to establish a baseline for subsequent 6[facility]-dose noncontrast chest CT. Reviewed, dictated and finalized at location B. IMPRESSION: 1. Numerous enlarged and FDG avid lymph nodes extending from the head and neck through the chest, abdomen and pelvis to the bilateral inguinal regions consist ent with widespread lymphoma. 2. No discrete lytic or blastic bone lesions or focally more intense FDG uptake although bone involvement was demonstrated at the right posterior iliac spine where there is no discrete lytic or blastic bone lesion are significantly incre ased activity and more widespread bone involvement is likely. 3. 8 mm right lower lobe nodule without evident FDG uptake. Would recommend obt aining a standard low-dose noncontrast chest CT for more accurate measurement t o establish a baseline for subsequent 6-12 month follow-up low-dose noncontrast chest CT.
--- OUTSIDE RECORDS SUMMARY | 2024-07-03 12:49 | XMS_ITS | Clinical Summary ---
Author Organization [facility] Address [address] [place] [address] Care Team Providers Care Tongue And Quarter Stitcher Name Role Phone Unavailable Primary Care Provider Unavailabl e Source Comments [facility],non-owned Affiliates and Associated Physician Practices is amultiple site organization consisting of ambulatory clinics and hospital sitesin [place], [place], [place] and [place]. This disclosure is being madepursuant to the Care Everywhere program and may not contain all information available regarding this patient. Last updated 17.[facility] Allergies No known active allergies Medications * [...] Encounters Date Type Department Care Team Description 07/02/2024 Lab Requisition [facility] - [facility]ology Lab [address] [place] [address] Magdaleno Vidales MD Illness, unspecified 07/01/2024 Lab Requisition [facility] - [facility]ology Lab [address] [place] [address] Magdaleno Vidales MD Small cell B-cell lymphoma, unspecified site (HCC) 05/12/2024 Lab Requisition [facility] - [facility]ology Lab [address] [place] [address] Levar Bermudez MD Illness, unspecified 05/09/2024 Lab Requisition [facility] - [facility]ology Lab [address] [place] [address] Levar Bermudez MD Generalized enlarged lymph nodes [...] 101.2 kg (223 lb) 02/28/2021 10:42 AM MASTER CONTROL SUPERVISOR Height 180.3 cm (5' 11 ) 02/28/2021 10:42 AM MASTER CONTROL SUPERVISOR Body Mass Index 31.1 02/28/2021 10:42 AM MASTER CONTROL SUPERVISOR Plan of Treatment Health Maintenance Due Date Last Done Comments LIPID TESTING 1982 COVID-19 VACCINE (#1) 1987 DTAP/TDAP/TD VACCINES (1 - Tdap) 2001 HEPATITIS B VACCINE (1 of 3 - 19+ 3-dose series) 2001 PNEUMOCOCCAL VACCINE (1 of 2 - PCV) 2001 ZOSTER VACCINE (1 of 2) 2001 DEPRESSION SCREENING 03/26/2024 05/11/2022 INFLUENZA VACCINE (Season Ended) 2024 HEPATITIS C SCREENING Completed 02/28/2021 HIV SCREENING [...] Procedure Name Priority Date/Time Associated Diagnosis Comments BONE MARROW BIOPSY (STL) Routine 07/01/2024 9:21 AM CDT Illness, unspecified FLOW CYTOMETRY BONE MARROW Routine 07/01/2024 9:21 AM CDT Small cell B-cell lymphoma, unspecified site (HCC) PATHOLOGY TISSUE Routine 05/09/2024 9:11 AM MASTER CONTROL SUPERVISOR Illness, unspecified FLOW CYTOMETRY TISSUE PANEL Routine 05/09/2024 9:11 AM MASTER CONTROL SUPERVISOR Generalized enlarged lymph nodes HEPATITIS C ANTIBODY Routine 02/28/2021 12:18 PM MASTER CONTROL SUPERVISOR Arthralgia, unspecified joint High risk medication use Long-term use of immunosuppressant medication Encounter for therapeutic drug level monitoring Vasculitis HIV-1 HIV-2 ANTIBODY + HIV P24 AG PANEL Routine 02/28/2021 12:18 PM MASTER CONTROL SUPERVISOR Arthralgia, unspecified joint High risk medications (not anticoagulants) long-term use Long-term use of immunosuppressant medication Encounter for therapeutic drug level monitoring Vasculitis from Last 3 Months or Most Recently Relevant to Health Maintenance Results * FLOW CYTOMETRY BONE MARROW (07/01/2024 9:21 AM CDT) Case Report Flow Cytometry Case: [id number] Authorizing Provider: Magdaleno Vidales Collected: 07/01/2024 09:21 AM MD Aristides Ordering Location: [facility] - Received: 07/01/2024 01:02 PM Pathology Lab Pathologist: Shona Maloney MD Specimen: Bone Marrow 07/01/2024 3:08 PM [facility] Final Diagnosis Bone marrow, flow cytometric immunophenotypic analysis: - CD5-positive monoclonal B-cell population detected (66% of total events) - See interpretation 07/01/2024 3:08 PM [facility] Flow Cytometry Interpretation Viability: 74% B-cells: 66% of events are monoclonal B-cells that express CD5, CD19, CD20 (dim), CD23 (dim), and surface kappa light chains (dim). Blasts: 0.8% of events A bone marrow aspirate smear prepared from the flow cytometry specimen has been reviewed for software quality assurance engineer purposes. 07/01/2024 3:08 PM [facility] Flow Cytometry Results Differential Result Comment Flow Cell Count /uL 27,000 Total Viability % 74.0 Lymphocytes % 93 Dim CD45 Region % 2 Monocytes % 0 Granulocytes % 5 07/01/2024 3:08 PM [facility] Reason for test Small cell B-cell lymphoma, unspecified site (HCC) 07/01/2024 3:08 PM [facility] Client Specimen ID # [id number] 07/01/2024 3:08 PM [facility] Number of markers 10 were performed. A-1 Flow CD3 A-3 Flow CD10 A-5 Flow CD20 A-6 Flow CD23 A-2 Flow CD5 A-4 Flow CD19 A-7 Flow CD34 A-8 Flow CD45 A-9 [place]+CD19+ A-10 Lambda+CD19+ 07/01/2024 3:08 PM [facility] Pathologist Location at [facility] 07/01/2024 3:08 PM [facility] Disclaimer Test performed at [facility], [address] [place] [address], [id number]. *The established laboratory minimum viability is 70%. [...] qualified to perform high complexity clinical testing. 07/01/2024 3:08 PM CDT [facility] Embedded Images 3:08 PM CDT [facility] Pathology/Cytolo gy BONE MARROW SPECIMEN / Unknown 07/01/2024 9:21 AM CDT 07/01/2024 1:02 PM CDT Magdaleno Vidales MD LAB - PATHO LOGY/CYTOLOGY ORDERABLES [facility] [address] [phone] * BONE MARROW BIOPSY (STL) (07/01/2024 9:21 AM CDT) Case Report Bone Marrow Patholog y Report Case: [id number] Authorizing Provider: Magdaleno Vidales Collected: 07/01/2024 09:21 AM MD Aristides Ordering Location: [facility] - Received: 07/02/2024 01:55 PM Pathology Lab Pathologist: Shona Maloney MD Specimens: A) - Bone Marrow Clot B) - Bone Marrow Core 07/02/2024 2:23 PM CDT [facility] Final Diagnosis Bone marrow, aspirate, clot section, and core biopsy: - Normocellular marrow with maturing trilineage hematopoiesis and ~70% involvement by chronic lymphocytic leukemia/small lymphocytic lymphoma (CLL/SLL) - See description 07/02/2024 2:23 PM CDT [facility] Comment Overall, the bone marrow specimen is normocellular for age with maturing trilineage hematopoiesis. There is ~70% involvement by the patient's previously characterized CLL/SLL. Correlation with clinical findings and relevant cytogenetic/molecular testing is required. 07/02/2024 2:23 PM [facility] Bone Marrow Aspirate The bone marrow aspirate smears lack spicules and appear hemodilute. Scanning shows mostly small, mature lymphocytes with admixed hematopoietic elements. Too few marrow elements are present to evaluate maturation and assess for dysplasia. An iron stain shows limited positivity, but no spicules are present for evaluation. 07/02/2024 2:23 PM [facility] Bone Marrow Core Biopsy and Clot Section Description Specimen quality: The decalcified bone marrow core biopsy is adequate for evaluation. Cellularity: variably normocellular, ~50-60%. Trilineage Hematopoiesis: present. Myeloid to Erythroid ratio: normal. Myeloid maturation and localization: normal. Erythroid maturation and localization: normal. Megakaryocyte number: normal. Megakaryocyte distribution: normal. Lymphoid aggregates: Present, along with a diffuse lymphoid infiltrate, involving ~70% of the marrow cellularity. The lymphocytes are small in morphology. Core biopsy iron (by special stain): adequate. Clot section marrow particles: absent. Clot section morphology: peripheral blood only. Clot section iron (by special stain): absent, but no particles present. 07/02/2024 2:23 PM [facility] Flow Cytometry Summary Concurrent flow cytometry ([id number]) shows a CD5-positive monoclonal B-cell population (66% of total events). 07/02/2024 2:23 PM [facility] Clinical History 44 year old man with CLL/SLL. 07/02/2024 2:23 PM [facility] Materials Received Received are 18 slides and 3 blocks labeled [id number] along with a copy of the outside pathology report. [place] [address]. All original materials are returned to the referring institution, along with a copy of our final report. 07/02/2024 2:23 PM [facility] Pathologist Location at [facility] 07/02/2024 2:23 PM [facility] Disclaimer The performance characteristics of all immunohistochemical and indirect immunofluorescence stains (if any) cited in this report were determined by the Histopathology Laboratory of [facility]. Some of these tests were developed by [...] and interpreted by the attending (teaching) pathologist. 07/02/2024 2:23 PM CDT [facility] Embedded Images 07/02/2024 2:23 PM CDT [facility] Pathology/Cytology BONE MARROW SPECIMEN / Unknown 07/01/2024 9:21 AM CDT 07/02/2024 1:55 PM CDT Miscellaneous samples (specimen) BONE MARROW SPECIMEN / Unknown 07/01/2024 9:21 AM CDT 07/02/2024 1:55 PM CDT Magdaleno Vidales MD LAB - PATHO LOGY/CYTOLOGY ORDERABLES Performing Organization Address City/State/[facility] de Phone Number [facility] [address] [phone] * PATHOLOGY TISSUE (05/09/2024 9:11 AM MASTER CONTROL SUPERVISOR) Case Report Surgical Pathology Report Case: [id number] Authorizing Provider: Levar Bermudez MD Collected: 05/09/2024 09:11 AM Ordering Location: [facility] - Received: 05/12/2024 11:59 AM Pathology Lab Pathologist: Sudha Munoz MD Specimen: Lymph Node Biopsy 05/13/2024 5:[address] 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 Flow cytometry corroborates the morphologic impression ([id number]). 05/13/2024 5:[address] [facility] Clinical History Lymphadenopathy noted bilateral neck, chest, and inguinal regions 05/13/2024 5:[address] [facility] Gross Description [facility] gross description: Received fresh labeled the patient's identification and right groin lymph node is an ovoid brown-black to brody-pink lymph node measuring 3.5 x 2.2 x 1.5 cm. The cut surfaces brody-pink to brown blackish and fish fleshy. Touch preps are performed. Access Director sections are submitted in RPMI for flow cytometry and the remaining specimen is entirely submitted in cassettes A1 through A3. 05/13/2024 5:[address] [facility] Materials Received Received are 5 slide(s) and 3 block(s) labeled [id number] along with a copy of the outside pathology report. [place] [address]. All original materials are returned to the referring institution, along with a copy of our final report. 05/13/2024 5:[address] [facility] Pathologist Location at [facility] 05/13/2024 5:[address] [facility] Disclaimer The performance characteristics of all immunohistochemical and indirect immunofluorescence stains (if any) cited in this report were determined by the Histopathology Laboratory of [facility]. Some of these tests were developed by [...] the attending (teaching) pathologist. 05/13/2024 5:[address] [facility] Embedded Images 05/13/2024 5:[address] [facility] Pathology/Cytolo gy BIOPSY OF LYMPH NODE / Unknown 05/09/2024 9:11 AM MASTER CONTROL SUPERVISOR 05/12/2024 11:59 AM MASTER CONTROL SUPERVISOR Levar Bermudez MD LAB - PATHOLOGY/CYTO LOGY ORDERABLES [facility] [address] [phone] * FLOW CYTOMETRY TISSUE PANEL (05/09/2024 9:11 AM MASTER CONTROL SUPERVISOR) Case Report Flow Cytometry Case: [id number] Authorizing Provider: Levar Bermudez MD Collected: 05/09/2024 09:11 AM Ordering Location: [facility] - Received: 05/09/2024 01:30 PM Pathology Lab Pathologist: Shona Maloney MD Specimen: Lymph Node 3:[address] [facility] Final Diagnosis Lymph node, right groin, flow cytometric immunophenotypic analysis: - CD5-positive monoclonal B-cell population (79.4% of total events) - See interpretation 3:[address] [facility] Flow Cytometry Interpretation Viability: 60% B-cells: 79.4% of total events are monoclonal B-cells that express CD5, CD19, CD20 (dim), CD23 (dim), and dim surface kappa light chains. T-cells: no immunophenotypic aberrancy detected CD4:CD8 ratio 2.8:1 A cytospin prepared from the flow cytometry specimen has been reviewed for software quality assurance engineer purposes. 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 Correlation with the concurrent biopsy specimen is required for further classification. 3:[address] [facility] Flow Cytometry Results Differential Result Comment Flow Cell Count /uL 8,000 Total Viability % 60.0 Lymphocytes % 98 Dim CD45 Region % 2 Monocytes % 0 Granulocytes % 0 5 3:[address] [facility] Reason for test Generalized enlarged lymph nodes 785.6 5 3:[address] [facility] Client Specimen ID # [id number] 3:[address] [facility] Number of markers 16 were performed. A-2 Flow CD10 A-4 Flow CD20 A-5 Flow CD23 A-10 Flow CD2 A-11 Flow CD3 A-12 Flow CD4 A-16 Flow CD1a A-3 Flow CD19 A-6 Flow CD34 A-7 Flow CD45 A-13 Flow CD5 A-14 Flow CD7 A-15 Flow CD8 A-17 Flow CD30 A-8 [place]+CD19+ A-9 Lambda+CD19+ 5 3:[address] [facility] Pathologist Location at [facility] 3:[address] [facility] Disclaimer Test performed at [facility], [address] [place] [address], [id number]. *The established laboratory minimum viability is 70%. [...] perform high complexity clinical testing. 3:[address] [facility] Embedded Images 3:[address] [facility] Pathology/Cytolo gy ENTIRE LYMPH NODE / Unknown 05/09/2024 9:11 AM MASTER CONTROL SUPERVISOR 05/09/2024 1:30 PM MASTER CONTROL SUPERVISOR Levar Bermudez MD LAB - PATHOLOGY/CYTO LOGY ORDERABLES [facility] [address] [place] [address], [facility] [phone] * HIV-1 HIV-2 ANTIBODY + HIV P24 AG PANEL (02/28/2021 12:18 PM MASTER CONTROL SUPERVISOR) Pathologist [facility] HIV Antigen/Antibod y 1 & 2 Non-reacti ve Non-react jim 02/28/2021 2:48 PM MASTER CONTROL SUPERVISOR [facility] Comment:No Laboratory eviden ce of HIV infection. Blood BLOOD SPECIMEN / Unknown Lab Venipuncture / Unknown 02/28/2021 12:18 PM MASTER CONTROL SUPERVISOR 02/28/2021 12:54 PM MASTER CONTROL SUPERVISOR Irina Rodriguez MD LAB - CHEMISTRY ORDERABLES Performing Organization Address City/[facility]/ZIP Co de Phone Number [address] [address], [facility] [phone] * (ABNORMAL) HEPATITIS C ANTIBODY (02/28/2021 12:18 PM MASTER CONTROL SUPERVISOR) Pathologist [facility] Hepatitis C Antibody Reactive( A) Non-react jim 02/28/2021 2:52 PM MASTER CONTROL SUPERVISOR [facility] Comment:Hepatitis C Antibody screen is consistent with past or current infection with Hepatitis C Virus. Nucleic Acid Test (GRACE) for Hepatitis C Viral RNA should be performed for initial HCV workup, and for differentiating active/chronic infection from resolved infection. Blood BLOOD SPECIMEN / Unknown Lab Venipuncture / Unknown 02/28/2021 12:18 PM MASTER CONTROL SUPERVISOR 02/28/2021 12:54 PM MASTER CONTROL SUPERVISOR Irina Rodriguez MD LAB - CHEMISTRY ORDERABLES [address] [address], [facility] [phone] from Last 3 Months or Most Recently Relevant to Health Maintenance LYNDSAY NEWELL Personal/Famil y 1980 [address] [place] [id number]
--- OUTSIDE RECORDS SUMMARY | 2024-07-03 12:49 | XMS_ITS | Encounter Summary ---
Author Organization [facility] Address [address] [place] [address] Care Team Providers Care Hammer Fitter Name Role Phone Unavailable Primary Care Provider Unavailabl e Encounter Details Date Type Department Care Team (Late st Contact Info) Description 05/12/2024 Lab Requisition [facility] - Pathology Lab [address] [place] [address] Levar Bermudez MD [address] [phone] Illness, unspecified Social History Tobacco [...] Comments PATHOLOGY TISSUE Routine 05/09/2024 9:11 AM OPERATING ROOM TECHNOLOGIST Illness, unspecified documented in this encounter Results * PATHOLOGY TISSUE (05/09/2024 9:11 AM OPERATING ROOM TECHNOLOGIST) Case Report Surgical Pathology Report Case: [id number] Authorizing Provider: Levar Bermudez MD Collected: 05/09/2024 09:11 AM Ordering Location: [facility] - Received: 05/12/2024 11:59 AM Pathology Lab Pathologist: Sudha Munoz MD Specimen: Lymph Node Biopsy 05/13/2024 5:48 PM OPERATING ROOM TECHNOLOGIST [facility] Final Diagnosis Lymph node, right inguinal, excision: - 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 Flow cytometry corroborates the morphologic impression ([id number]). 05/13/2024 5:48 PM [facility] Clinical History Lymphadenopathy noted bilateral neck, chest, and inguinal regions 05/13/2024 5:48 PM [facility] Gross Description [facility] gross description: Received fresh labeled the patient's identification and right groin lymph node is an ovoid brown-black to brody-pink lymph node measuring 3.5 x 2.2 x 1.5 cm. The cut surfaces brody-pink to brown blackish and fish fleshy. Touch preps are performed. Sales Support Consultant sections are submitted in RPMI for flow cytometry and the remaining specimen is entirely submitted in cassettes A1 through A3. 05/13/2024 5:48 PM [facility] Materials Received Received are 5 slide(s) and 3 block(s) labeled [id number] along with a copy of the outside pathology report. [place] [address]. All original materials are returned to the referring institution, along with a copy of our final report. 05/13/2024 5:48 PM [facility] Pathologist Location at [facility] [address] 05/13/2024 5:48 PM [facility] Disclaimer The performance characteristics of all immunohistochemical and indirect immunofluorescence stains (if any) cited in this report were determined by the Histopathology Laboratory of [facility]. Some of these tests were developed by [...] the attending (teaching) pathologist. 05/13/2024 5:48 PM [facility] Embedded Images 05/13/2024 5:48 PM [facility] Pathology/Cytolo gy BIOPSY OF LYMPH NODE / Unknown 05/09/2024 9:11 AM OPERATING ROOM TECHNOLOGIST 05/12/2024 11:59 AM OPERATING ROOM TECHNOLOGIST Levar Bermudez MD LAB - PATHOLOGY/CYTO LOGY ORDERABLES [facility] [address] [place], [place] [id number] [place] [address] documented in this encounter Visit Diagnoses Diagnosis Illness, unspecified documented in this encounter
--- OUTSIDE RECORDS SUMMARY | 2024-07-03 12:49 | XMS_ITS | Encounter Summary ---
Author Organization [facility] Address [address] [place] [address] Care Team Providers Care Chief Operating Officer Name Role Phone Unavailable Primary Care Provider Unavailabl e Encounter Details Date Type Department Care Team (Late st Contact Info) Description 07/02/2024 Lab Requisition [facility] - Pathology Lab [address] [place] [id number] Magdaleno Vidales MD [address] [address] Illness, unspecified Social History Tobacco Use Types [...] Routine 07/01/2024 9:21 AM CDT Illness, unspecified documented in this encounter Results * BONE MARROW BIOPSY (STL) (07/01/2024 9:21 AM CDT) Case Report Bone Marrow Patholog y Report Case: [id number] Authorizing Provider: Magdaleno Vidales Collected: 07/01/2024 09:21 AM MD Aristides Ordering Location: [facility] - Received: 07/02/2024 01:55 PM Pathology Lab Pathologist: Shona Maloney MD Specimens: A) - Bone Marrow Clot B) - Bone Marrow Core 07/02/2024 2:23 PM [facility] Final Diagnosis Bone marrow, aspirate, clot section, and core biopsy: - Normocellular marrow with maturing trilineage hematopoiesis and ~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 There is ~70% involvement by the patient's previously characterized CLL/SLL. Correlation with clinical findings and relevant cytogenetic/molecular testing is required. 07/02/2024 2:23 PM [facility] Bone Marrow Aspirate The bone marrow aspirate smears lack spicules and appear hemodilute. Scanning shows mostly small, mature lymphocytes with admixed hematopoietic elements. Too few marrow elements are present to evaluate maturation and assess for dysplasia. An iron stain shows limited positivity, but no spicules are present for evaluation. 07/02/2024 2:23 PM [facility] Bone Marrow Core Biopsy and [...] but no particles present. 07/02/2024 2:23 PM [facility] Flow Cytometry Summary Concurrent flow cytometry ([id number]) shows a CD5-positive monoclonal B-cell population (66% of total events). 07/02/2024 2:23 PM [facility] Clinical History 44 year old man with CLL/SLL. 07/02/2024 2:23 PM [facility] Materials Received Received are 18 slides and 3 blocks labeled [id number] along with a copy of the outside pathology report. [place] [address]. All original materials are returned to the referring institution, along with a copy of our final report. 07/02/2024 2:23 PM [facility] Pathologist Location at [facility] 07/02/2024 2:23 PM T [facility] Disclaimer The performance characteristics of all immunohistochemical and indirect immunofluorescence stains (if any) cited in this report were determined by the Histopathology Laboratory of [facility]. Some of these tests were developed [...] the attending (teaching) pathologist. 07/02/2024 2:23 PM T [facility] Embedded Images 07/02/2024 2:23 PM T [facility] Pathology/Cytology BONE MARROW SPECIMEN / Unknown 07/01/2024 9:21 AM CDT 07/02/2024 1:55 PM CDT Miscellaneous samples (specimen) BONE MARROW SPECIMEN / Unknown 07/01/2024 9:21 AM CDT 07/02/2024 1:55 PM CDT Magdaleno Vidales MD LAB - PATHO LOGY/CYTOLOGY ORDERABLES [facility] [address] [phone] documented in this encounter Visit Diagnoses Diagnosis Illness, unspecified documented in this encounter
--- OUTSIDE RECORDS SUMMARY | 2024-07-03 12:49 | XMS_ITS | Clinical Summary ---
Author Organization [facility] Address [facility] [place] [address] Care Team Providers Care Product Evangelist Name Role Phone Laura Alves MD, [facility] Primary Care Provider [phone] Allergies No known active allergies Medications No known medications Active Problems No known active problems Encounters Date Type Department Care Team Description 06/09/2024 2:41 PM CDT - 06/09/2024 11:59 PM CDT Hospital Encounter [facility] [address] [place] [address] Jen Mcneil MD Discharge Disposition: Home or Self Care (Routine Discharge) 06/09/2024 Orders Only [facility] [address] [address] Jen Mcneil MD 04/07/2024 2:15 PM RECEIVABLE EXECUTIVE - 04/07/2024 11:59 PM RECEIVABLE EXECUTIVE Hospital Encounter [facility] [address] [place] [address] Jen Mcneil MD Discharge Disposition: Home or Self Care (Routine Discharge) 04/07/2024 Orders Only [facility] [address] [place] [address] Jen Mcneil MD from Last 3 Months [...] 06/09/2024 12:50 PM CDT Small lymphocytic lymphoma ([facility] HHS/HCC) IMMUNOFIXATION Routine 06/09/2024 12:50 PM CDT Small lymphocytic lymphoma ([facility] HHS/HCC) PROTEIN, ELECTROPHORESIS Routine 06/09/2024 12:50 PM CDT Small lymphocytic lymphoma ([facility] HHS/HCC) LDH, LACTATE DEHYDROGENASE Routine 06/09/2024 12:50 [...] CBC W/DIFF AUTOMATED Routine 04/07/2024 11:45 AM RECEIVABLE EXECUTIVE Adenopathy COMPREHENSIVE METABOLIC PANEL Routine 04/07/2024 11:45 AM RECEIVABLE EXECUTIVE Adenopathy LDH, LACTATE DEHYDROGENASE Routine 04/07/2024 11:45 AM RECEIVABLE EXECUTIVE Adenopathy HIV 1 ANTIGEN(S), WITH HIV-1 AND HIV-2 ANTIBODIES Routine 04/07/2024 11:45 AM RECEIVABLE EXECUTIVE Adenopathy SED RATE, ERYTHROCYTE (ESR) Routine 04/07/2024 11:45 AM RECEIVABLE EXECUTIVE Adenopathy URIC ACID BLOOD Routine 04/07/2024 11:45 AM RECEIVABLE EXECUTIVE Adenopathy from Last 3 Months Results * HCV RNA,PCR QUANT. (06/09/2024 2:44 PM CDT) HEPATITIS C RNA PCR QNT <15 IU/mL 06/13/2024 6:17 AM CDT Travel Notes [facility] Comment: HCV RNA Not Detected HEP C RNA PCR QNT LOG <1.18 log IU/mL 06/13/2024 6:17 AM CDT Travel Notes [facility] Comment: HCV RNA Not Detected Reference Range: Not Detected IU/mL Not Detected Log IU/mL For additional information please refer to http://[employer] Div.Lotame/faq/[email or web address] (This link is being provided for informational/ educational purposes only.) Test Performed by Tr[employer], [employer] [facility], [address] [place] [address] Steve Machado M.D., Ph.D., Director of Laboratories , [facility] [id number] 06/09/2024 2:44 PM CDT us Jen Mcneil MD LABORATORY Final Result Travel Notes [place] [id number] [place], [place] , * (ABNORMAL) COMPREHENSIVE METABOLIC PANEL (06/09/2024 12:50 PM CDT) Only the most recent of2 resultswithin the time period is included. [facility] GLUCOSE 96 70 - 99 MG/DL 06/09/2024 3:24 PM CDT [facility] BUN 9 7 - 18 MG/DL 06/09/2024 3:24 PM CDT [facility] CREATININE S/P/B 1.17 0.50 - 1.20 MG/DL 06/09/2024 3:24 PM CDT [facility] SODIUM S/P/B 142 136 - 145 MMOL/L 06/09/2024 3:24 PM CDT [facility] POTASSIUM S/P/B 4.4 3.5 - 5.1 MMOL/L 06/09/2024 3:24 PM CDT [facility] CHLORIDE S/P/B 104 100 - 108 MMOL/L 06/09/2024 3:24 PM CDT [facility] CO2 30.9 21.0 - 32.0 MMOL/L 06/09/2024 3:24 PM CDT [facility] CALCIUM S/P/B 9.0 8.5 - 10.1 MG/DL 06/09/2024 3:24 PM CDT [facility] BILIRUBIN TOTAL S/P/B 0.7 0.2 - 1.2 MG/DL 06/09/2024 3:24 PM CDT [facility] Comment: THIS ASSAY IS NOT RECOMMENDED FOR PATIENTS UNDERGOING TREATMENT WITH ELTROMBOPAG DUE TO THE POTENTIAL FOR FALSELY ELEVATED RESULTS. TOTAL PROTEIN S/P/B 7.4 6.4 - 8.2 G/DL 06/09/2024 3:24 PM CDT [facility] ALBUMIN S/P/B 3.9 3.4 - 5.0 G/DL 06/09/2024 3:24 PM CDT [facility] AST 23 15 - 37 U/L 06/09/2024 3:24 PM CDT [facility] ALT 23 16 - 60 U/L 06/09/2024 3:24 PM CDT [facility] ALKALINE PHOSPHATASE S/P/B 84 50 - 136 U/L 06/09/2024 3:24 PM CDT [facility] ANION GAP 7.1 5.0 - 15.0 MMOL/L 06/09/2024 3:24 PM CDT [facility] BUN CREATININE RATIO 7.7 6 - 26 06/09/2024 3:24 PM CDT [facility] A/G RATIO 1.1 1.0 - 2.5 RATIO 06/09/2024 3:24 PM CDT [facility] GFR ESTIMATE 80(L) >90 ML/MIN/1.7 3 M2 06/09/2024 3:24 PM CDT [facility] Comment: NOTE: eGFR is not calculated for patients <18 years of age. This is an estimated GFR calculation using the new CKD EPI creatinine equation without race and so does not require a correction factor for race. This estimated GFR should not be used for calculating drug doses. 06/09/2024 12:5 0 PM CDT Jen Mcneil MD LABORATORY Final Result Performing Organization Address City/[facility]/ZIP Co de Phone Number [facility] [address] [place] [address], [place] * LDH, LACTATE DEHYDROGENASE (06/09/2024 12:50 PM CDT) Only the most recent of2 resultswithin the time period is included. Pathologist [facility] LDH 190 87 - 241 UNITS/L 06/09/2024 7:28 PM CDT [facility] 06/09/2024 12:5 0 PM CDT Jen Mcneil MD LABORATORY Final Result Performing Organization Address [facility] de Phone Number [facility] [address] [place] [address], [place] [phone] * IMMUNOFIXATION, SERUM (06/09/2024 12:50 PM CDT) Pathologist [facility] IMMUNOFIXATION SERUM SEE PATHOLOGIST'S INTERPRETATION 06/11/2024 1:52 PM CDT [facility] IMMUNOFIX (SERUM) INTERPRETATION THIS SERUM IMMUNOTYPING WAS INTERPRETED BY 06/12/2024 9:37 AM CDT [facility] Comment: DR JEROME CHURCH MD MONOCLONAL PROTEIN NOT IDENTIFIED 06/09/2024 12:5 0 PM CDT Jen Mcniel MD LABORATORY Final Result Performing Organization Address City/[facility]/ZIP Co de Phone Number [facility] [address] [place] [address], [place] [phone] * (ABNORMAL) HEPATITIS C ANTIBODY (06/09/2024 12:50 PM CDT) HEPATITIS C AB REACTIVE(A ) NON-REACTI VE 06/09/2024 8:36 PM CDT [facility] Comment: NOTE: A POSITIVE RESULT WILL BE CONFIRMED BY THE HEP C RNA, QUANT, PCR TEST. 06/09/2024 12:5 0 PM CDT us Jen Mcneil MD LABORATORY Final Result [facility] [address] [place] [address], [place] [phone] * HEPATITIS B SURFACE AG, EIA (06/09/2024 12:50 PM CDT) HEPATITIS B SURFACE AG NON-REACTI VE NON-REACTI VE 06/09/2024 8:04 PM CDT [facility] 06/09/2024 12:5 0 PM CDT us Jen Mcneil MD LABORATORY Final Result Performing Organization Address City/[facility]/ZIP Co de Phone Number [facility] [address] [place] [address], [place] [phone] * HEPATITIS B CORE ANTIBODY (06/09/2024 12:50 PM CDT) HEP B CORE TOTAL AB NON-REACTI VE NON-REACTI VE 06/09/2024 8:36 PM CDT [facility] 06/09/2024 12:5 0 PM CDT us Jen Mcneil MD LABORATORY Final Result [facility] [address] [place] [address], [place] [phone] * CBC W/DIFF AUTOMATED (06/09/2024 12:50 PM CDT) Only the most recent of2 resultswithin the time period is included. [facility] WBC 4.70 4.50 - 11.00 x10'3/uL 06/09/2024 2:54 PM CDT [facility] RBC 5.31 4.50 - 5.90 x10'6/uL 06/09/2024 2:54 PM CDT [facility] HGB 15.4 14.0 - 18.0 G/DL 06/09/2024 2:54 PM CDT [facility] HCT 46.4 43.0 - 54.0 % 06/09/2024 2:54 PM CDT [facility] MCV 87.4 80.0 - 100.0 FL 06/09/2024 2:54 PM CDT [facility] MCH 29.0 26.0 - 34.0 PG 06/09/2024 2:54 PM CDT [facility] MCHC 33.2 31.0 - 37.0 G/DL 06/09/2024 2:54 PM CDT [facility] RDW 13.4 11.6 - 14.8 % 06/09/2024 2:54 PM CDT [facility] PLT 234 130 - 400 x10'3/uL 06/09/2024 2:54 PM CDT [facility] MPV 10.3 7.0 - 12.0 FL 06/09/2024 2:54 PM CDT [facility] CBC COMMENT AUTOMATED RBC MORPHOLOGY AND PLATELET EVALUATION NORMAL 06/09/2024 2:54 PM CDT [facility] NEUTROPHILS % 57.5 40.0 - 74.0 % 06/09/2024 2:54 PM CDT [facility] LYMPHOCYTES % 33.6 14.0 - 46.0 % 06/09/2024 2:54 PM CDT [facility] MONOCYTES % 7.2 4.0 - 13.0 % 06/09/2024 2:54 PM CDT [facility] EOSINOPHILS 1.1 0.0 - 7.0 % 06/09/2024 2:54 PM CDT [facility] BASOPHILS 0.4 0.0 - 3.0 % 06/09/2024 2:54 PM CDT [facility] IMMATURE GRANS % 0.2 0.0 - 0.43 % 06/09/2024 2:54 PM CDT [facility] NRBC % 0.0 % 06/09/2024 2:54 PM CDT [facility] ABS. NEUTROPHILS TOTAL 2.70 1.69 - 7.81 x10'3/uL 06/09/2024 2:54 PM CDT [facility] ABS. LYMPHOCYTES 1.58 0.21 - 5.42 x10'3/uL 06/09/2024 2:54 PM CDT [facility] ABS. MONOCYTES 0.34 0.04 - 1.37 x10'3/uL 06/09/2024 2:54 PM CDT [facility] ABS. EOSINOPHILS 0.05 0.00 - 0.68 x10'3/uL 06/09/2024 2:54 PM CDT [facility] ABS. BASOPHILS 0.02 0.00 - 0.08 x10'3/uL 06/09/2024 2:54 PM CDT [facility] ABS. IMMATURE GRANULOCYTES 0.01 0.00 - 0.06 x10'3/uL 06/09/2024 2:54 PM CDT [facility] ABS. NUCLEATED RBC'S 0.00 0.00 - 0.01 x10'3/uL 06/09/2024 2:54 PM CDT [facility] 06/09/2024 12:5 0 PM CDT us Bachir Mcneil MD LABORATORY Final Result Performing Organization Address City/[facility]/ZIP Co de Phone Number [facility] [place] [facility] [address] [place] [address], [place] * PROTEIN, ELECTROPHORESIS (06/09/2024 12:50 PM CDT) TOTAL PROTEIN S/P/B 7.5 6.0 - 8.3 G/DL 06/11/2024 1:50 PM CDT [facility] ALBUMIN S/P/B 4.5 3.4 - 4.9 G/DL 06/11/2024 1:47 PM CDT [facility] PGECK-7-ADHEBKST S/P/B 0.3 0.2 - 0.4 G/DL 06/11/2024 1:47 PM CDT [facility] DIGRW-4-NQJYUMXO S/P/B 0.6 0.4 - 1.0 G/DL 06/11/2024 1:47 PM CDT [facility] BETA GLOBULIN S/P/B 0.7 0.5 - 1.2 G/DL 06/11/2024 1:47 PM CDT [facility] GAMMA GLOBULIN S/P/B 1.5 0.6 - 1.6 G/DL 06/11/2024 1:47 PM CDT [facility] ELECTROPHORESIS INTERPRETATION THIS SERUM PEP WAS INTERPRETED BY 06/12/2024 9:37 AM CDT [facility] Comment: DR JEROME CHURCH MD THE TOTAL SERUM PROTEIN IS NORMAL. ELECTROPHORESIS IDENTIFIES NO QUANTITATIVE ABNORMALITIES WITHIN THE PROTEIN FRACTIONS. MONOCLONAL PROTEINS ARE NOT DETECTED. 06/09/2024 12:5 0 PM CDT Jen Mcneil MD LABORATORY Final Result [facility] [address] [place] [address], [id number] * (ABNORMAL) IMMUNOGLOBULINS IGA IGG IGM (06/09/2024 12:50 PM CDT) Pathologist [facility] IGA 131 47 - 310 mg/dL 06/19/2024 9:27 AM CDT [facility] IGG 1,724(H) 600 - 1,640 mg/dL 06/19/2024 9:27 AM CDT [facility] L[facility] IGM 65 50 - 300 mg/dL 06/19/2024 9:27 AM CDT [facility] Comment: Test Performed by Tr[employer]Carl[employer], [employer] [facility], [address] [place], [place] Steve Machado M.D., Ph.D., Director of Laboratories , [facility] [id number] 06/09/2024 12:5 0 PM CDT Jen Mcneil MD LABORATORY Final Result Travel Notes [place] [id number] [place], [place] , [place] [phone] * HIV 1 ANTIGEN(S), WITH HIV-1 AND HIV-2 ANTIBODIES (04/07/2024 11:45 AM RECEIVABLE EXECUTIVE) [facility] HIV 1/2 AB+ HIV1 P24 AG NON-REACTI VE NON-REACTI VE 04/07/2024 8:36 PM RECEIVABLE EXECUTIVE [facility] 04/07/2024 11:4 5 AM RECEIVABLE EXECUTIVE us Jen Mcneil MD LABORATORY Final Result [facility] [address] [place] [address], [place] [phone] * SED RATE, ERYTHROCYTE (ESR) (04/07/2024 11:45 AM RECEIVABLE EXECUTIVE) [facility] ESR 14 <15 MM/HR 04/07/2024 7:48 PM RECEIVABLE EXECUTIVE [facility] Comment:Testing performed on Olga iSAYALA. 04/07/2024 11:4 5 AM RECEIVABLE EXECUTIVE us Jen Mcneil MD LABORATORY Final Result [facility] [address] [place] [address], [place] [phone] * URIC ACID BLOOD (04/07/2024 11:45 AM RECEIVABLE EXECUTIVE) URIC ACID 4.8 3.5 - 7.2 MG/DL 04/07/2024 8:39 PM RECEIVABLE EXECUTIVE [facility] 04/07/2024 11:4 5 AM RECEIVABLE EXECUTIVE us Jen Mcneil MD LABORATORY Final Result Performing Organization Address City/[facility] de Phone Number [facility] [address] [place] [address], [place] [phone] from Last 3 Months Insurance CARE Advance Directives Documents on File Type Date Recorded 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
--- OUTSIDE RECORDS SUMMARY | 2024-07-03 12:49 | XMS_ITS | Encounter Summary ---
Author Organization [facility] Address [address] [place] [address] Care Team Providers Care Collection Systems Worker Name Role Phone Unavailable Primary Care Provider Unavailabl e Encounter Details Date Type Department Care Team (Late st Contact Info) Description 05/09/2024 Lab Requisition [facility] - Pathology Lab [address] [place] [address] Levar Bermudez MD [address] [address] Generalized enlarged lymph nodes Social [...] CYTOMETRY TISSUE PANEL Routine 05/09/2024 9:11 AM [facility] [facility] [facility] Generalized enlarged lymph nodes documented in this encounter Results * FLOW CYTOMETRY TISSUE PANEL (05/09/2024 9:11 AM [facility] [facility]) Case Report Flow Cytometry Case: [id number] Authorizing Provider: Levar Bermudez MD Collected: 05/09/2024 09:11 AM Ordering Location: [facility] - Received: 05/09/2024 01:30 PM Pathology Lab Pathologist: Shona Maloney MD Specimen: Lymph Node 3:24 PM [facility] U PATHOLOGY LAB Final Diagnosis Lymph node, right groin, flow cytometric immunophenotypic analysis: - CD5-positive monoclonal B-cell population (79.4% of total events) - See interpretation 5 3:24 PM [facility] Flow Cytometry Interpretation Viability: 60% B-cells: 79.4% of total events are monoclonal B-cells that express CD5, CD19, CD20 (dim), CD23 (dim), and dim surface kappa light chains. T-cells: no immunophenotypic aberrancy detected CD4:CD8 ratio 2.8:1 A cytospin prepared from the flow cytometry specimen has been reviewed for quality and reliability engineer purposes. 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 Correlation with the concurrent biopsy specimen is required for further classification. 5 3:24 PM [facility] Flow Cytometry Results Differential Result Comment Flow Cell Count /uL 8,000 Total Viability % 60.0 Lymphocytes % 98 Dim CD45 Region % 2 Monocytes % 0 Granulocytes % 0 5 3:24 PM [facility] Reason for test Generalized enlarged lymph nodes 785.6 5 3:24 PM [facility] Client Specimen ID # [id number] 5 3:24 PM [facility] Number of markers 16 were performed. A-2 Flow CD10 A-4 Flow CD20 A-5 Flow CD23 A-10 Flow CD2 A-11 Flow CD3 A-12 Flow CD4 A-16 Flow CD1a A-3 Flow CD19 A-6 Flow CD34 A-7 Flow CD45 A-13 Flow CD5 A-14 Flow CD7 A-15 Flow CD8 A-17 Flow CD30 A-8 [place]+CD19+ A-9 Lambda+CD19+ 5 3:24 PM [facility] Pathologist Location at [facility] 5 3:24 PM [facility] Disclaimer Test performed at [facility], [address] [place] [address], [id number]. *The established laboratory minimum viability is 70%. [...] high complexity clinical testing. 5 3:24 PM [facility] [facility] Embedded Images 5 3:24 PM [place] [facility] Pathology/Cytolo gy ENTIRE LYMPH NODE / Unknown 05/09/2024 9:11 AM [facility] [facility] 05/09/2024 1:30 PM [facility] [facility] Levar Bermudez MD LAB - PATHOLOGY/CYTO LOGY ORDERABLES Performing Organization Address City/State/[facility] Co de Phone Number [facility] [address] [phone] documented in this encounter Visit Diagnoses Diagnosis Generalized enlarged lymph nodes Enlargement of lymph nodes documented in this encounter
--- OUTSIDE RECORDS SUMMARY | 2024-07-03 12:49 | XMS_ITS | Encounter Summary ---
Author Organization [facility] Address [address] [place] [address] Care Team Providers [employer] Name Role Phone Unavailable Primary Care Provider Unavailabl e Encounter Details Date Type Department Care Team (Late st Contact Info) Description 07/01/2024 Lab Requisition [facility] - Pathology Lab [address] [place] [id number] Magdaleno Vidales MD [address] [facility] [address] [place] [id number] Small cell B-cell lymphoma, unspecified site (HCC) Social History Tobacco Use Types Packs/Day Years [...] Priority Date/Time Associated Diagnosis Comments FLOW CYTOMETRY BONE MARROW Routine 07/01/2024 9:21 AM CDT Small cell B-cell lymphoma, unspecified site (HCC) documented in this encounter Results * FLOW CYTOMETRY BONE MARROW (07/01/2024 9:21 AM CDT) Case Report Flow Cytometry Case: [id number] Authorizing Provider: Magdaleno Vidales Collected: 07/01/2024 09:21 AM MD Aristides Ordering Location: [facility] - Received: 07/01/2024 01:02 PM Pathology Lab Pathologist: Shona Maloney MD Specimen: Bone Marrow 07/01/2024 3:08 PM [facility] Final Diagnosis Bone marrow, flow cytometric immunophenotypic analysis: - CD5-positive monoclonal B-cell population detected (66% of total events) - See interpretation 07/01/2024 3:08 PM [facility] Flow Cytometry Interpretation Viability: 74% B-cells: 66% of events are monoclonal B-cells that express CD5, CD19, CD20 (dim), CD23 (dim), and surface kappa light chains (dim). Blasts: 0.8% of events A bone marrow aspirate smear prepared from the flow cytometry specimen has been reviewed for quality management nurse purposes. 07/01/2024 3:08 PM [facility] Flow Cytometry Results Differential Result Comment Flow Cell Count /uL 27,000 Total Viability % 74.0 Lymphocytes % 93 Dim CD45 Region % 2 Monocytes % 0 Granulocytes % 5 07/01/2024 3:08 PM [facility] Reason for test Small cell B-cell lymphoma, unspecified site (HCC) 07/01/2024 3:08 PM [facility] Client Specimen ID # [id number] 07/01/2024 3:08 PM [facility] Number of markers 10 were performed. A-1 Flow CD3 A-3 Flow CD10 A-5 Flow CD20 A-6 Flow CD23 A-2 Flow CD5 A-4 Flow CD19 A-7 Flow CD34 A-8 Flow CD45 A-9 [place]+CD19+ A-10 Lambda+CD19+ 07/01/2024 3:08 PM [facility] Pathologist Location at [facility] 07/01/2024 3:08 PM [facility] Disclaimer Test performed at [facility], [address] [place] [address], [id number]. *The established laboratory minimum viability is 70%. [...] complexity clinical testing. 07/01/2024 3:08 PM CDT [facility] Embedded Images 3:08 PM CDT [facility] Pathology/Cytolo gy BONE MARROW SPECIMEN / Unknown 07/01/2024 9:21 AM CDT 07/01/2024 1:02 PM CDT Magdaleno Vidales MD LAB - PATHO LOGY/CYTOLOGY ORDERABLES Performing Organization Address City/State/[facility] Co de Phone Number [facility] [address] [phone] documented in this encounter Visit Diagnoses Diagnosis Small cell B-cell lymphoma, unspecified site (HCC) documented in this encounter
[2024-07-03 12:51] LABS: Glucose Point of Care 77 mg/dl (65-105)
== END 2024-07-03 12:23 | disposition home or self-care (01) ==
PROVIDERS: Visit Provider Physician Assistant
DX: C96.9 Malignant neoplasm of lymphoid, hematopoietic and related tissue, unspecified (principal); R91.1 Solitary pulmonary nodule
CPT/HCPCS: 78815; A9552